=== PATIENT | female | born 1925 | race Caucasian/White ===

== ENCOUNTER 2016-10-25 12:48 | Emergency (ER) | payer MEDICARE ==
--- NOTE | 2016-10-25 13:43 | ED.PDOC ---
History of Present Illness - General Chief Complaint: Neuro Symptoms/Deficits Stated Complaint: generalized weakness and confusion today Time Seen by Provider: 10/25/16 12:51 Source: patient, family Exam Limitations: no limitations - History of Present Illness Initial Comments: Patient presents with AMS. The family says that she normally is "sharp" but today she seems confused. No history of dementia. She has had no recent illnesses. She denies any sx and is wondering why she is here. She is alert to place and name but not year. Timing/Duration: 4-6 hours Severity: mild Improving Factors: nothing Worsening Factors: nothing Associated Symptoms: denies symptoms Allergies/Adverse Reactions: Allergies Levofloxacin [From Levaquin] Adverse Reaction (Verified 03/29/16 14:14) metals Allergy (Uncoded 03/29/16 14:14) Home Medications: Ambulatory Orders Aspirin [Aspirin EC] 325 mg PO BEDTIME 05/24/14 Calcium 600 mg PO BEDTIME 05/24/14 Lovastatin 20 mg PO BEDTIME 05/24/14 [place]-3 Fatty Acids [Fish Oil] 1 cap PO BEDTIME 05/24/14 Omeprazole 20 mg PO DAILY@0700 05/24/14 Oxybutynin Chloride [Oxybutynin Chloride ER] 10 mg PO BEDTIME 05/24/14 Acetamin W/Cod #3 Tab [Tylenol w/CODEINE #3] 1 ea PO Q6H PRN #30 tab 03/13/16 Gabapentin 600 mg PO BEDTIME 03/13/16 Lisinopril 10 mg PO BEDTIME 03/13/16 Lubiprostone [Amitiza] 24 mcg PO DAILY #14 cap 03/13/16 Metoprolol Succinate [Metoprolol Succinate ER] 50 mg PO BID 03/13/16 Zolpidem Tartrate [Ambien] 5 mg PO BEDTIME 03/13/16 Sulfamethoxazole-Trimethoprim [Bactrim Ds 800-160 mg] 1 tab PO Q12HR #10 tab Review of Systems - Review of Systems Constitutional: States: no symptoms reported EENTM: States: no symptoms reported Respiratory: States: no symptoms reported Cardiology: States: no symptoms reported Gastrointestinal/Abdominal: States: no symptoms reported Genitourinary: States: no symptoms reported Musculoskeletal: States: no symptoms reported Skin: States: no symptoms reported Neurological: States: see HPI Endocrine: States: no symptoms reported Hematologic/Lymphatic: States: no symptoms reported Past Medical History (General) - Patient Medical History Hx Seizures: No Hx Stroke: No Hx Dementia: No Hx Asthma: No Hx of COPD: No Hx Cardiac Disorders: Yes Hx Congestive Heart Failure: Yes Hx Pacemaker: Yes Hx Hypertension: Yes Hx Thyroid Disease: No Hx Diabetes: No Hx Gastroesophageal Reflux: No Hx Renal Disease: No Hx Cancer: No Hx of HIV: No Hx Hepatitis C: No Hx MRSA: No Surgical History: pacemaker, Hysterectomy - Vaccination History Hx Tetanus, Diphtheria Vaccination: No Hx Influenza Vaccination: Yes - 2014 Hx Pneumococcal Vaccination: Yes - 2013 - Social History Hx Tobacco Use: Yes Hx Chewing Tobacco Use: No Hx Alcohol Use: No Hx Substance Use: No Hx Substance Use Treatment: No Hx Depression: No Hx Physical Abuse: No Hx Emotional Abuse: No Hx Suspected Abuse: No - Female History Patient : No Family Medical History - Family History Mother Family History: Unknown Living Status: Hx Cardiac Disease: Yes Physical Exam - Physical Exam General Appearance: Alert Eye Exam: bilateral normal Ears, Nose, Throat: normal ENT inspection Neck: non-tender, full range of motion, supple Respiratory: chest non-tender, lungs clear, normal breath sounds Cardiovascular/Chest: regular rate, rhythm Gastrointestinal/Abdominal: normal bowel sounds, non tender, soft Back Exam: no CVA tenderness Extremity: normal inspection, no pedal edema 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 Laboratory Tests 10/25/16 10/25/16 13:00 15:03 WBC 9.1 RBC 5.19 Hgb 15.1 Hct 46.6 MCV 89.7 MCH 29.1 MCHC 32.4 L RDW 14.4 Plt Count 181 MPV 8.9 Absolute Neuts (auto) 6.20 Absolute Lymphs (auto) 2.10 Absolute Monos (auto) 0.50 Absolute Eos (auto) 0.20 Absolute Basos (auto) 0.10 Neutrophils % 67.9 Lymphocytes % 23.6 Monocytes % 5.8 Eosinophils % 2.1 Basophils % 0.6 Sodium 138 Potassium 5.0 Chloride 107 Carbon Dioxide 25 Anion Gap 11.0 L BUN 16 Creatinine 0.88 BUN/Creatinine Ratio 18.2 POC Glucose 107 H Random Glucose 104 Serum Osmolality 277.2 Calcium 10.1 Total Bilirubin 0.8 AST 20 ALT 11 Alkaline Phosphatase 68 Serum Total Protein 7.4 Albumin 3.9 Globulin 3.5 Albumin/Globulin Ratio 1.1 Urine Color Yellow Urine Appearance Sl cloudy Urine pH 7.0 Ur Specific [place] 1.020 Urine Protein Negative Urine Glucose (UA) Negative Urine Ketones Negative Urine Blood Small H Urine Nitrite Positive H Urine Bilirubin Negative Urine Urobilinogen 1.0 Ur Leukocyte Esterase Trace H Urine RBC 0 Urine WBC 10-20 H Ur Epithelial Cells 0 Urine Bacteria 1+ 10/25/16 15:32 RX for Bactrim DS bid x 5 days given. Departure - Departure Clinical Impression: UTI (urinary tract infection) Disposition: Discharge to Home or Self Care Condition: Good Departure Forms: ED Discharge - Pt. Copy, Patient Portal Self Enrollment Diet: resume usual diet Activity: increase activity as tolerated Prescriptions: Sulfamethoxazole-Trimethoprim [Bactrim Ds 800-160 mg] 1 tab PO Q12HR #10 tab Home Medications: Ambulatory Orders Aspirin [Aspirin EC] 325 mg PO BEDTIME 05/24/14 Calcium 600 mg PO BEDTIME 05/24/14 Lovastatin 20 mg PO BEDTIME 05/24/14 [place]-3 Fatty Acids [Fish Oil] 1 cap PO BEDTIME 05/24/14 Omeprazole 20 mg PO DAILY@0700 05/24/14 Oxybutynin Chloride [Oxybutynin Chloride ER] 10 mg PO BEDTIME 05/24/14 Acetamin W/Cod #3 Tab [Tylenol w/CODEINE #3] 1 ea PO Q6H PRN #30 tab 03/13/16 Gabapentin 600 mg PO BEDTIME 03/13/16 Lisinopril 10 mg PO BEDTIME 03/13/16 Lubiprostone [Amitiza] 24 mcg PO DAILY #14 cap 03/13/16 Metoprolol Succinate [Metoprolol Succinate ER] 50 mg PO BID 03/13/16 Zolpidem Tartrate [Ambien] 5 mg PO BEDTIME 03/13/16 Sulfamethoxazole-Trimethoprim [Bactrim Ds 800-160 mg] 1 tab PO Q12HR #10 tab
--- NOTE | 2016-10-25 14:38 | RAD ---
Study: Single Frontal View of the Chest. Indication:AMS Comparison: March 18, 2016. Impression: Dual-lead cardiac pacemaker. Cardiomegaly. Thoracic aorta markedly tortuous and calcified. There is prominence of the right ector which could reflect vasculature, or lymphadenopathy not excluded. Contrast-enhanced CT chest can better evaluate. New mild right basilar atelectasis versus consolidation. Short-term follow-up recommended. Emphysema suspected. No pneumothorax. No acute osseous abnormality. Electronically signed by: Terrell West MD 10/25/2016 2:37 PM CDT
[2016-10-25 19:13] VITALS: BP 178/84; TEMP 97.9; O2SAT 91
== END 2016-10-25 15:55 | disposition home or self-care (01) ==
LOC: ER 12:48
DX: N39.0 Urinary tract infection, site not specified (principal); Z88.8 Allergy status to other drugs, medicaments and biological substances; Z91.048 Other nonmedicinal substance allergy status; Z79.82 Long term (current) use of aspirin; Z79.899 Other long term (current) drug therapy; I11.0 Hypertensive heart disease with heart failure; I50.9 Heart failure, unspecified; Z95.0 Presence of cardiac pacemaker; Z87.891 Personal history of nicotine dependence

== ENCOUNTER 2016-10-30 18:07 | Inpatient (IN) | payer MEDICARE ==
[2016-10-30] MEDS ORDERED: SODIUM CHLORIDE 0.9% 1000ML 1,000 ML IVS ONE (18:31)
--- NOTE | 2016-10-30 18:34 | ED.PDOC ---
History of Present Illness - General Chief Complaint: General Stated Complaint: Weakness and confusion Time Seen by Provider: 10/30/16 18:20 Source: patient, RN notes reviewed, Vital Signs reviewed, family Exam Limitations: no limitations - History of Present Illness Initial Comments: Daughter had her brought in due to generalized weakness and confusion. She was seen here of 10/25/16 with similar symptoms and was diagnosed with a UTI. She finished her Bactrim today. Patient has no complaints and does not know why they brought her here. Timing/Duration: 4-6 hours Severity: moderate Improving Factors: nothing Worsening Factors: nothing Associated Symptoms: cough, fever/chills, malaise, weakness Allergies/Adverse Reactions: Allergies Levofloxacin [From Levaquin] Adverse Reaction (Verified 10/30/16 18:18) metals Allergy (Uncoded 03/29/16 14:14) Home Medications: Ambulatory Orders Aspirin [Aspirin EC] 325 mg PO BEDTIME 05/24/14 Calcium 600 mg PO BEDTIME 05/24/14 Lovastatin 20 mg PO BEDTIME 05/24/14 [place]-3 Fatty Acids [Fish Oil] 1 cap PO BEDTIME 05/24/14 Omeprazole 20 mg PO DAILY@0700 05/24/14 Oxybutynin Chloride [Oxybutynin Chloride ER] 10 mg PO BEDTIME 05/24/14 Gabapentin 600 mg PO BEDTIME 03/13/16 Metoprolol Succinate [Metoprolol Succinate ER] 50 mg PO BID 03/13/16 Zolpidem Tartrate [Ambien] 5 mg PO BEDTIME 03/13/16 Review of Systems - Review of Systems Constitutional: States: chills, fever - 102.1 @ home, malaise, weakness EENTM: States: no symptoms reported Respiratory: States: cough. Denies: short of breath, stridor, wheezing Cardiology: States: no symptoms reported Gastrointestinal/Abdominal: States: no symptoms reported Genitourinary: States: no symptoms reported Musculoskeletal: States: no symptoms reported Skin: States: no symptoms reported Neurological: States: see HPI, weakness Endocrine: States: no symptoms reported Hematologic/Lymphatic: States: no symptoms reported Past Medical History (General) - Patient Medical History Hx Seizures: No Hx Stroke: No Hx Dementia: No Hx Asthma: No Hx of COPD: No Hx Cardiac Disorders: Yes Hx Congestive Heart Failure: Yes Hx Pacemaker: Yes Hx Hypertension: Yes Hx Thyroid Disease: No Hx Diabetes: No Hx Gastroesophageal Reflux: No Hx Renal Disease: No Hx Cancer: No Hx of HIV: No Hx Hepatitis C: No Hx MRSA: No - Vaccination History Hx Tetanus, Diphtheria Vaccination: No Hx Influenza Vaccination: Yes - 2015 Hx Pneumococcal Vaccination: Yes - 2013 - Social History Hx Tobacco Use: Yes - Pt quit smoking Hx Chewing Tobacco Use: No Hx Alcohol Use: No Hx Substance Use: No Hx Substance Use Treatment: No Hx Depression: No Hx Physical Abuse: No Hx Emotional Abuse: No Hx Suspected Abuse: No - Female History Patient : No Family Medical History - Family History Mother Family History: Unknown Living Status: Hx Cardiac Disease: Yes Physical Exam - Physical Exam General Appearance: Alert, Comfortable, No apparent distress, Well Developed, Well Groomed, Well Nourished Eye Exam: bilateral normal Ears, Nose, Throat: hearing grossly normal, other - Dry mucous membranes Neck: non-tender, full range of motion, supple, normal inspection Respiratory: no respiratory distress, no accessory muscle use, rhonchi - Throughout, expiration Cardiovascular/Chest: regular rate, rhythm, no gallop, no JVD, no murmur Peripheral Pulses: dorsalis pedis,right: 2+, dorsalis pedis,left: 2+ Gastrointestinal/Abdominal: normal bowel sounds, non tender, soft, no organomegaly, no pulsatile mass Extremity: normal range of motion, non-tender, normal inspection, no pedal edema 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 Will admit patient for observation and IV antibiotics for inadequately treated UTI, fever, weakness & confusion. Departure - Departure Clinical Impression: Dehydration, Hypoxemia UTI (urinary tract infection) Qualifiers: Urinary tract infection type: acute cystitis Hematuria presence: with hematuria Qualifier Code: (N30.01) Acute cystitis with hematuria Fever Qualifiers: Fever type: unspecified Qualifier Code: (R50.9) Fever, unspecified Time of Disposition: 20:54 Disposition: Admit Patient Condition: Fair Departure Forms: ED Discharge - Pt. Copy, Patient Portal Self Enrollment Home Medications: Ambulatory Orders Aspirin [Aspirin EC] 325 mg PO BEDTIME 05/24/14 Calcium 600 mg PO BEDTIME 05/24/14 Lovastatin 20 mg PO BEDTIME 05/24/14 [place]-3 Fatty Acids [Fish Oil] 1 cap PO BEDTIME 05/24/14 Omeprazole 20 mg PO DAILY@0700 05/24/14 Oxybutynin Chloride [Oxybutynin Chloride ER] 10 mg PO BEDTIME 05/24/14 Gabapentin 600 mg PO BEDTIME 03/13/16 Metoprolol Succinate [Metoprolol Succinate ER] 50 mg PO BID 03/13/16 Zolpidem Tartrate [Ambien] 5 mg PO BEDTIME 03/13/16 Decision To Admit - Decistion To Admit Decision to Admit Reason: Medical Nature
--- NOTE | 2016-10-30 19:10 | RAD ---
EXAM DESCRIPTION: Chest,1 View CLINICAL HISTORY: cough/fever COMPARISON: October 25, 2016 FINDINGS: Cardiac silhouette is within normal limits. Contour of the aorta is unchanged compared with the prior exam. Pacer leads project over the heart. Patient is rotated. There is no focal parenchymal or pleural disease. There is no acute osseous process visualized. IMPRESSION: No evidence of acute cardiopulmonary disease. Electronically signed by: Jorge A Brunson MD 10/30/2016 7:09 PM CDT
--- NOTE | 2016-10-30 20:03 | CT ---
EXAM DESCRIPTION: Head CLINICAL HISTORY: confusion/weakness COMPARISON: March 18, 2016 TECHNIQUE: Contiguous axial images of the brain were obtained without the administration of intravenous contrast. FINDINGS: There is no acute intracranial hemorrhage or mass effect. Areas of low attenuation in the periventricular and subcortical white matter are nonspecific but suggestive of small vessel disease. There is generalized atrophy. Ventricular system is within normal limits. There is adequate river-white matter differentiation. There is no skull fracture. There is abnormal opacification of the sphenoid sinus compatible with chronic sinusitis changes. IMPRESSION: No acute intracranial abnormalities. Electronically signed by: Jorge A Brunson MD 10/30/2016 8:03 PM CDT
--- NOTE | 2016-10-30 21:23 | HP ---
SUPERVISING PHYSICIAN: Abhi Kennedy MD CHIEF COMPLAINT: Weakness with some confusion. HISTORY OF PRESENT ILLNESS: Ms. Vogt is an 89-year-old, female that was brought to the Emergency Department by her daughter with complaints that she was having generalized weakness with confusion. She had been recently seen in the Emergency Room on 10/25/16 with similar symptoms and was diagnosed with a urinary tract infection and was started on Bactrim, which she finished today. The patient notes she is still having some dysuria, increased frequency of urination despite finishing her Bactrim. Her daughter reports that she was fine today, she did her physical therapy and took a nap and when she woke up from her nap this afternoon, she was quite confused for a short period of time and was unable to stand without a significant amount of assistance. Her daughter also notes that the patient does take some sleep aids that include Ambien and was recently increased dosage from 5 mg to 10 mg as well as she takes Benadryl sometimes at night along with recently started on a nighttime cough medicine secondary to a cough she has developed. Laboratory studies in the Emergency Department completed show she had a normal white count with no left shift. Chemistries showed just a low sodium of 131. Electrolytes were otherwise within normal limits. BUN 17, creatinine slightly elevated at 1.49. Review of previous records show that her baseline creatinine is 0.7 to 1.0. Vital signs showed the patient to have a fever of 101.5. Heart rate 70. Blood pressure 117/65. Respirations 20. Low O2 saturation of 89% on room air at initial assessment. Her daughter also notes the patient has not been drinking as much fluid as she has in the past several months and has had a decreased appetite for a short period of time. Given the fact that the patient is having significant weakness with previous recent treatment with antibiotics to include Bactrim and a significant fever in the Emergency Department of 101.5 initially, the patient is now going to be placed in observation for further treatment and evaluation. The patient was placed in observation in stable condition. PAST MEDICAL HISTORY: 1. Hypertension. 2. History of intermittent hypotension related to medication regimen. 3. Hyperlipidemia. 4. Osteoporosis. 5. Bradycardia with previous pacemaker placement. 6. Urinary incontinence with multiple urinary tract infections. 7. Carotid artery stenosis. 8. Congestive heart failure with diastolic dysfunction with no available echocardiogram for review in recent past years. 9. Coronary artery disease. 10. Abdominal aortic aneurysm, last measured 4.3 in 2008. 11. Diverticulosis. 12. Degenerative disc disease. PAST SURGICAL HISTORY: 1. Hysterectomy. 2. Cataract removal. 3. Ectropion correction of the right eye. 4. Pacemaker insertion. 5. Abdominal aortic aneurysm repair. CURRENT MEDICATIONS: Please refer to electronic medical record for updated list of home medications that have been verified. ALLERGIES: LEVOFLOXACIN. FAMILY HISTORY: Significant for cancer, diabetes, chronic obstructive pulmonary disease, coronary artery disease. SOCIAL HISTORY: The patient has a history of approximately 60 years of smoking habit and currently smokes. She denies any alcohol or illicit drug use. REVIEW OF SYSTEMS: CONSTITUTIONAL: She notes she did have a fever at home of 102.1 as well as in the Emergency Room with general malaise and weakness. HEENT: Denies rhinorrhea, nasal congestion, or upper respiratory symptoms other than a mild cough. RESPIRATORY: Denies significant shortness of breath, wheezing, but does have a nonproductive cough. CARDIOVASCULAR: Denies chest pain or palpitations. Denies syncopal episodes. GASTROINTESTINAL: Denies constipation, but notes she has had some episodes of diarrhea within the last week actually prior to starting antibiotic therapy. GENITOURINARY: Previous urinary tract infection treatment within the last five days with Bactrim. Continues to have symptoms that include dysuria and increased frequency. NEUROLOGIC: As noted in history of present illness, some mild confusion today that resolved without any intervention and some weakness, but she is under the direction of physical therapy at home from previous falls. PHYSICAL EXAMINATION: VITAL SIGNS: Temperature on admission 101.5. Pulse 70. Blood pressure 178/84. Respirations 20. Saturation 89% initially on room air, improving with nasal cannula to 92%, 2 liters. Admission weight 77.5 kg. GENERAL: The patient alert and oriented. She appears to be in no acute distress. She does appear to be ill and not feeling well and somewhat dehydrated. HEENT: Tympanic membranes clear bilaterally. Oropharynx is pink. Mucous membranes are dry without any lesions. NECK: No jugular venous distention noted. CHEST: Notable for some rhonchi in the left upper lobe, more noted to the lateral posterior aspect with decreased sounds in both bases. No wheezing or rales noted. CARDIOVASCULAR: Regular rate and rhythm without any appreciable murmurs, gallops, or rubs. ABDOMEN: Obese, but soft, nontender. Positive bowel sounds. EXTREMITIES: There is no cyanosis, clubbing or edema. NEUROLOGIC: The patient is alert and oriented times three. Cranial nerves II- XII are grossly intact. Facial features are symmetrical. Extraocular movements are within normal limits. There is no nystagmus noted. There are no notable lateralizing or focalizing neuromotor deficits. LABORATORY: CBC shows white count 6.4, hemoglobin 13.3, hematocrit 40.0, platelet count 129,000, differential without left shift. Chemistries show low sodium 131, potassium 4.7, BUN 17, creatinine 1.49, glucose 133, serum osmolality 266. Liver function within normal limits. BNP 282. Magnesium pending. TSH pending. Urinalysis showed small amount of blood and trace leukocyte esterase on dipstick. Microscopic showed 3 to 5 red blood cells, 5 to 10 white blood cells, 25 epithelials, 3+ amorphus and 4+ bacteria with trace amount of mucus. MICROBIOLOGY: Urine culture pending. Previous urine culture on previous admission to the Emergency Room on 10/25/16 showed a final culture with pseudomonas aeruginosa which was sensitive to Bactrim. Please refer to that report for full details of sensitivity. RADIOLOGY: CT of the head per radiology interpretation showed no acute intracranial abnormalities. ASSESSMENT: 1. Febrile illness, unknown etiology, possibly secondary to continued urinary tract infection having failed to respond to outpatient treatment plan with repeat urinalysis today showing continued significant amount of bacteria and white cells. The patient finished a five day course of Bactrim, but continues to be symptomatic. 2. Generalized weakness with some confusion, possibly secondary to #1 and recent increase in her Ambien along with medications at night to include Benadryl and at times cough medicine. 3. Concerns for possible left upper lobe pneumonia with the patient having been recently treated with antibiotics with some mild hypoxia on room air at time of admission 4. Hypertension. 5. Hyperlipidemia. 6. Osteoporosis. 7. History of bradycardia with pacemaker placement. 8. History of urinary incontinence with multiple urinary tract infections in the past. 9. History of carotid artery stenosis, possibly contributing to #1 with concerns for possible transient ischemic attack. 10. History of congestive heart failure with diastolic dysfunction, but no available echocardiogram currently for review, with current elevated BNP, possibly elevated secondary to dehydration. 11. History of coronary artery disease. 12. Diverticulosis. 13. Previous abdominal aortic aneurysm repair. 14. Moderate dehydration. PLAN: The patient is placed in observation tonight with close clinical monitoring and further evaluation. She will be started on antibiotics to include Rocephin tonight with concerns for a possible underlying pneumonia developing in the left upper lobe along with what appears to be failure of treatment of an underlying urinary tract infection within the last five days with repeat culture results pending. We will plan to provide her with some IV therapy to include rehydration with normal saline to run at 80 mL per hour tonight. She will be placed on telemetry as well as q.4h. neurological checks. We will plan to do a Doppler study of the carotids in the morning as well as repeat chest x-ray. If she has had recent carotid studies, we will certainly review those and consider need for repeat of the carotid studies. She will at some point need a repeat echocardiogram to further evaluate her congestive heart failure. Estimated length of stay of one to two days. Until then, we will continue to monitor the patient closely and treat appropriately. Once discharged, the patient will need close clinical followup with her primary care provider, Dr. Porras, in the outpatient setting. #[id number] [facility] [place] [facility]
[2016-10-30] MEDS ORDERED: ACETAMINOPHEN 325 MG TAB PO PRN (22:49)
[2016-10-30] MEDS ORDERED: LEVALBUTEROL NEBS 1.25 MG/3 ML VIAL NEB PRN (22:49)
[2016-10-30] MEDS ORDERED: SODIUM CHL 0.9% 50ML MIN-BAG+ 50 ML IVPB ONE (22:57)
[2016-10-30] MEDS ORDERED: cefTRIAXone SODIUM 1 GM VIAL ONE (22:57)
[2016-10-30] MEDS: cefTRIAXone SODIUM 1 GM in SODIUM CHL 0.9% 50ML MIN-BAG+ 50 ML IVPB SCH (22:59)
[2016-10-30] MEDS: SODIUM CHLORIDE 0.9% 1000ML 1,000 ML IVS PRN (23:01)
[2016-10-30] MEDS: SODIUM CHLORIDE 0.9% (FLUSH) 10 ML SYG IV PRN (23:17)
[2016-10-30] MEDS: IV SET AND CAP CHANGE INJ INJ SCH (23:17)
[2016-10-31] MEDS: LEVALBUTEROL NEBS 1.25 MG/3 ML VIAL NEB SCH ×4 (05:03→23:47)
--- NOTE | 2016-10-31 07:18 | RAD ---
EXAM: Single view chest. INDICATION: Chest pain. COMPARISON: Chest x-ray: 10/30/2016. FINDINGS: There is a right basilar airspace opacity. The left lung is clear. The heart is at the upper limit of normal in size with a left chest wall pacemaker in place. There is no pneumothorax. The bones are unchanged. IMPRESSION: Right basilar pneumonia Electronically signed by: Vinod Delgado MD 10/31/2016 7:17 AM CDT
[2016-10-31] MEDS: BIFIDOBACTERIUM INFANTIS 4 MG CAP PO SCH (09:42)
[2016-10-31] MEDS ORDERED: PROMETHAZINE W/CODEINE SYR 5 ML UD PO PRN (10:21)
[2016-10-31] MEDS ORDERED: AZITHROMYCIN IV 500 MG VIAL IVPB ONE (10:53)
[2016-10-31] MEDS ORDERED: SODIUM CHLORIDE 0.9% 250ML 250 ML ONE (10:53)
[2016-10-31] MEDS ORDERED: NICOTINE PATCH 21 MG TD SCH (11:00)
[2016-10-31] MEDS: AZITHROMYCIN IV 500 MG in SODIUM CHLORIDE 0.9% 250ML 250 ML IVPB SCH (11:01)
--- NOTE | 2016-10-31 11:26 | PCM.CORE ---
Physician DVT/VTE - Nurse DVT Assessment & Total Each Risk Factor Represents 3 Points: Age over 75 years, Medical PT with Hx of [place], CHF, Severe infection/sepsis Each Risk Factor Represents 1 Point: Medical PT at Bed Rest, Hx of smoking past year Each Risk Factor is 1 Point: Obesity (BMI >25) DVT Assessment Score: 9 - 5 or more Very High Risk Treatments: Early Ambulation *, Sequential Compression Device Pharmacological: Enoxaparin 40mg SQ Daily
[2016-10-31] MEDS ORDERED: ENOXAPARIN SODIUM 40 MG/0.4 ML SYG SUBCU SCH (11:30)
[2016-10-31] MEDS: SODIUM CHLORIDE 0.9% 1000ML 1,000 ML IVS PRN (14:43)
--- NOTE | 2016-10-31 19:30 | PN ---
DATE: 10/31/16 SUPERVISING PHYSICIAN: Geovanni Kennedy M.D. SUBJECTIVE: The patient is feeling much better this morning. She said she is rested and is not confused as she felt like she was when she was admitted. She did run a fever initially on admission with T max being 101.5 but since then has had a T max of 99.9. OBJECTIVE: VITAL SIGNS: T max 99.9, pulse 69, blood pressure 176/84, respirations 20, O2 sat 93% on nasal cannula at 2 liters. I's and O's show a positive balance of 656 with 853 in, 200 out. Weight 77.8 kg. CHEST: Lungs are clear to auscultation except for mild rhonchi heard to the right lower base. No audible wheezing is appreciated. HEART: Regular rate and rhythm. ABDOMEN: Obese but soft, non-tender. Positive bowel sounds. EXTREMITIES: No clubbing, cyanosis or edema. NEUROLOGIC: She is alert and oriented times three. LABORATORY: White count today is 5.4, hemoglobin 12.6, hematocrit 39.1, platelet count 128,000. Differential shows to be without a left shift. Chemistries show normal electrolytes with normalized sodium now of 135, potassium 4.4, BUN 14, creatinine 1.06, glucose 110. Liver functions show to be within normal limits. MICROBIOLOGY: Urine culture is pending. Sputum culture is pending. RADIOLOGY: Chest x-ray this morning per radiology interpretation shows right basilar airspace opacity. Impression per radiology interpretation is right basilar pneumonia. ASSESSMENT: 1. Right basilar pneumonia likely community acquired with the patient having a history of recently being on antibiotics that included Bactrim. 2. Urinary tract infection having been recently treated with Bactrim for final culture results showing Pseudomonas aeruginosa which was sensitive to Bactrim with the patient continuing to be symptomatic. 3. Febrile illness likely secondary to developing pneumonia and underlying urinary tract infection. 4. Generalized weakness with some mild confusion, possibly secondary to #1 as well as some side effects from her Ambien along with other medications at night to include Benadryl and some cough medicines. 5. Hypertension. 6. Hyperlipidemia. 7. Osteoporosis. 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 9. History of urinary incontinence with multiple urinary tract infections in the past with most recent being this past week with the patient being on Bactrim treated for Pseudomonas aeruginosa. 10. History of carotid artery stenosis, less likely contributing to #1 and remote concerns for transient ischemic attacks. 11. History of congestive heart failure with diastolic dysfunction, but no available echocardiogram currently for review, with current elevated BNP, possibly elevated secondary to dehydration. 12. Mild dehydration showing improvement after IV replacement. 13. Mild hyponatremia, improved after IV therapy with IV fluids. 14. History of coronary artery disease. 15. Diverticulosis without any complications noted. 16. Previous abdominal aortic aneurysm repair. PLAN: The patient will be admitted from Observation status into a full admission given the fact that she had shown right basilar pneumonia and has been running a fever. She was started on antibiotics last night to include Rocephin. Additional antibiotics added today will include Azithromycin. She was also started on aggressive bronchial hygiene last night and bronchodilator treatments. This will be continued along with reevaluation in the morning with laboratory studies and repeat x-rays. Given the fact that the patient has pneumonia and has not had any additional neurological confusional state since admission, will opt to not do a Doppler study on the carotids and followup with this in the outpatient setting at discharge with her primary care provider, Dr. Porras. Until discharge, will continue to monitor the patient closely and treat appropriately. #[id number] [facility]
[2016-10-31] MEDS ORDERED: cefTRIAXone SODIUM 1 GM VIAL ONE (20:02)
[2016-10-31] MEDS ORDERED: SODIUM CHL 0.9% 50ML MIN-BAG+ 50 ML IVPB ONE (20:02)
[2016-10-31] MEDS: cefTRIAXone SODIUM 1 GM in SODIUM CHL 0.9% 50ML MIN-BAG+ 50 ML IVPB SCH (22:35)
[2016-11-01] MEDS: SODIUM CHLORIDE 0.9% 1000ML 1,000 ML IVS PRN (02:37)
[2016-11-01] MEDS ORDERED: NYSTATIN POWDER 15GM BTTL TOP ONE (04:31)
[2016-11-01] MEDS: NYSTATIN POWDER 15GM BTTL TOP SCH ×5 (05:15→21:44)
[2016-11-01] MEDS ORDERED: ENOXAPARIN SODIUM 40 MG/0.4 ML SYG SUBCU ONE (07:30)
[2016-11-01] MEDS ORDERED: SODIUM CHLORIDE 0.9% 250ML 250 ML ONE (07:30)
[2016-11-01] MEDS ORDERED: AZITHROMYCIN IV 500 MG VIAL IVPB ONE (07:30)
[2016-11-01] MEDS: LEVALBUTEROL NEBS 1.25 MG/3 ML VIAL NEB SCH ×3 (08:08→23:35)
[2016-11-01] MEDS ORDERED: SODIUM CHLORIDE 0.9% 10 ML VIAL ONE (08:47)
[2016-11-01] MEDS: BIFIDOBACTERIUM INFANTIS 4 MG CAP PO SCH (09:04)
[2016-11-01] MEDS: ENOXAPARIN SODIUM 40 MG/0.4 ML SYG SUBCU SCH (09:04)
[2016-11-01] MEDS ORDERED: OMEPRAZOLE CAP 20 MG CAP ONE (09:07)
[2016-11-01] MEDS ORDERED: METOPROLOL TARTRATE 25 MG TAB ONE (09:07)
[2016-11-01] MEDS: OMEPRAZOLE CAP 20 MG CAP PO SCH (09:10)
[2016-11-01] MEDS: SODIUM CHLORIDE 0.9% (FLUSH) 10 ML SYG IV SCH ×2 (09:10→21:40)
[2016-11-01] MEDS: METOPROLOL SUCCINATE XL 50 MG TAB PO SCH ×2 (09:11→21:46)
[2016-11-01] MEDS: AZITHROMYCIN IV 500 MG in SODIUM CHLORIDE 0.9% 250ML 250 ML IVPB SCH (10:19)
[2016-11-01] MEDS ORDERED: FLUCONAZOLE 150 MG TAB PO ONE (15:54)
[2016-11-01] MEDS: NYSTATIN SUSPENSION 5 ML UD MT SCH ×2 (17:10→21:41)
--- NOTE | 2016-11-01 19:11 | PN ---
DATE: 11/01/16 SUPERVISING PHYSICIAN: Yonny Porras M.D. SUBJECTIVE: The patient had an episode of confusion last night, more of a episode when she felt like she needed to leave the hospital once all of her family members had left. She was given some Ativan which resulted in the patient calming down. She was hypotensive as well but with her Ativan dosage and her calming down, her blood pressure did improve somewhat. She remains afebrile. OBJECTIVE: VITAL SIGNS: T max 98.9, pulse 85, blood pressure 154/95, respirations 22, O2 sat showing 95% on nasal cannula at 2 liters. I's and O's show a positive balance of 1212 with 2912 in, 1700 out. She has been saline locked. Weight is 78.9 kg. GENERAL: The patient is resting this morning. She is a little confused. She does not remember much of the night but recalls that she is in the hospital and can remember her daughters' names, but is a little drowsy from the Ativan. HEENT: Oropharynx is pink. There is some notable white plaques on the oral mucosa with some mild erythema noted on the left cheek area compared to admission. CHEST: Lungs remain clear to auscultation with no notable rhonchi today, just diminished towards the right lower base. HEART: Regular rate and rhythm. ABDOMEN: Obese but soft, non-tender. Positive bowel sounds. EXTREMITIES: No clubbing, cyanosis or edema. NEUROLOGIC: She is alert and oriented times three. INTEGUMENT: The patient has some areas underneath her right breast that show to be erythematous from previous shingles episode. LABORATORY: CBC shows to be within normal limits with white count 5.8, hemoglobin 13.6, hematocrit 41.8, platelet count 126,000. Differential shows to be within normal limits. Chemistries show normal electrolytes with potassium 3.8, BUN 9, creatinine 0.63, glucose 128. MICROBIOLOGY: Urine culture showed no growth at 24 hours. ASSESSMENT: 1. Right basilar pneumonia likely community acquired in a patient having a history of recently being on antibiotics to include Bactrim showing some improvement. 2. Urinary tract infection recently having been treated with Bactrim for final culture results showing Pseudomonas aeruginosa having been sensitive to Bactrim and the patient continuing to be symptomatic but with urine culture showing no growth at 24 hours. 3. Febrile illness likely secondary to underlying pneumonia and secondary to previous urinary tract infection. 4. Generalized weakness with some mild confusion likely secondary to number 1 as well as owners and disorientation, and some medication interactions to include possible Ambien and Benadryl. 5. Hypertension. 6. Hyperlipidemia. 7. Osteoporosis. 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 9. History of urinary incontinence with multiple urinary tract infections in the past with most recent being in the last week being treated with Bactrim for Pseudomonas aeruginosa. 10. History of carotid artery stenosis likely contributing to number 1. 11. History of congestive heart failure with diastolic dysfunction but no available echocardiogram currently for review with current elevated BNP possibly elevated secondary to dehydration. 12. Mild dehydration showing improvement after IV therapy. 13. Mild hyponatremia, resolved after IV fluids. 14. History of coronary artery disease. 15. Diverticulosis without any complications noted. 16. Previous abdominal aortic aneurysm repair. 17. Intertrigo of the right breast and thrush likely secondary from previous antibiotic therapy. PLAN: The patient will continue in full admission today and treated for underlying pneumonia with antibiotic therapy and started with Rocephin and Azithromycin. She will continue on pulmonary hygiene with bronchodilator treatment. I have encouraged the family to stay with the patient as much as possible to keep her oriented in the afternoons at times when she gets confused. We started her on some Nystatin swish and swallow as well as Nystatin powder for the underlying rashes and closely monitor. Anticipate possible discharge Friday or Friday. Before then, will get an evaluation and recommendations from Physical Therapy to ensure the patient is safe to return home. Until then, the patient will continue to be monitored closely and treated appropriately. Once discharged, the patient will need close clinical followup with Dr. Porras in the outpatient setting. #[id number] [facility]
[2016-11-01] MEDS ORDERED: cefTRIAXone SODIUM 1 GM VIAL ONE (19:47)
[2016-11-01] MEDS ORDERED: SODIUM CHL 0.9% 50ML MIN-BAG+ 50 ML IVPB ONE (19:47)
[2016-11-01] MEDS ORDERED: ASPIRIN TABLET 325 MG TAB ONE (19:47)
[2016-11-01] MEDS ORDERED: FISH OIL 1,200 MG CAP ONE (19:47)
[2016-11-01] MEDS ORDERED: CALCIUM CARBONATE-VITAMIN D 500 MG TAB ONE (19:54)
[2016-11-01] MEDS ORDERED: GABAPENTIN 300 MG CAP ONE (19:55)
[2016-11-01] MEDS ORDERED: SIMVASTATIN 10 MG TAB PO ONE (19:56)
[2016-11-01] MEDS ORDERED: TOLTERODINE TARTRATE ER 4 MG CAP PO ONE (19:56)
[2016-11-01] MEDS ORDERED: NON-FORMULARY MEDICATION 1 EA MIS (Oxybutynin Chloride [Oxybutynin Chloride Er] 10 MG) PO SCH (21:00)
[2016-11-01] MEDS ORDERED: ZOLPIDEM TARTRATE 5 MG TAB PO SCH (21:00)
[2016-11-01] MEDS ORDERED: NON-FORMULARY MEDICATION 1 EA MIS (Lovastatin [Lovastatin] 20 MG) PO SCH (21:00)
[2016-11-01] MEDS: CALCIUM CARBONATE-VITAMIN D 500 MG TAB PO SCH (21:39)
[2016-11-01] MEDS: TOLTERODINE TARTRATE ER 4 MG CAP PO SCH (21:39)
[2016-11-01] MEDS: GABAPENTIN 300 MG CAP PO SCH (21:40)
[2016-11-01] MEDS: SIMVASTATIN 10 MG TAB PO SCH (21:40)
[2016-11-01] MEDS: FISH OIL 1,200 MG CAP PO SCH (21:40)
[2016-11-01] MEDS: ASPIRIN (ENTERIC COATED) 325 MG TAB PO SCH (21:43)
[2016-11-01] MEDS: cefTRIAXone SODIUM 1 GM in SODIUM CHL 0.9% 50ML MIN-BAG+ 50 ML IVPB SCH (22:38)
[2016-11-01] MEDS: SODIUM CHLORIDE 0.9% (FLUSH) 10 ML SYG IV PRN (22:39)
[2016-11-02] MEDS: OMEPRAZOLE CAP 20 MG CAP PO SCH (06:21)
[2016-11-02] MEDS: LEVALBUTEROL NEBS 1.25 MG/3 ML VIAL NEB SCH ×2 (07:20→16:05)
--- NOTE | 2016-11-02 07:36 | RAD ---
EXAM: Single view chest. INDICATION: Chest pain. COMPARISON: Chest x-ray: 10/31/2016. FINDINGS: Cardiac silhouette: Enlarged with a left chest wall pacemaker in place Sandrine: The right hilum is prominent, likely due to enlargement of the pulmonary artery. Lobar consolidation: None. Pleural effusion: None. Pneumothorax: None. Other: None. Bones: Demineralized Other: None. IMPRESSION: Significant improvement of the right basilar airspace opacity. Electronically signed by: Vinod Delgado MD 11/02/2016 7:34 AM CDT
[2016-11-02] MEDS ORDERED: SODIUM CHLORIDE 0.9% 250ML 250 ML ONE (07:39)
[2016-11-02] MEDS ORDERED: AZITHROMYCIN IV 500 MG VIAL IVPB ONE (07:40)
[2016-11-02] MEDS ORDERED: METOPROLOL SUCCINATE XL 50 MG TAB ONE (07:40)
[2016-11-02] MEDS: NYSTATIN SUSPENSION 5 ML UD MT SCH ×4 (09:25→21:08)
[2016-11-02] MEDS: NYSTATIN POWDER 15GM BTTL TOP SCH ×4 (09:25→21:08)
[2016-11-02] MEDS: BIFIDOBACTERIUM INFANTIS 4 MG CAP PO SCH (09:25)
[2016-11-02] MEDS: ENOXAPARIN SODIUM 40 MG/0.4 ML SYG SUBCU SCH (09:25)
[2016-11-02] MEDS: SODIUM CHLORIDE 0.9% (FLUSH) 10 ML SYG IV SCH ×2 (09:26→21:07)
[2016-11-02] MEDS: METOPROLOL SUCCINATE XL 50 MG TAB PO SCH ×2 (09:26→21:06)
[2016-11-02] MEDS: AZITHROMYCIN IV 500 MG in SODIUM CHLORIDE 0.9% 250ML 250 ML IVPB SCH (10:14)
--- NOTE | 2016-11-02 16:05 | PN ---
DATE: 11/02/16 SUPERVISING PHYSICIAN: Yonny Porras M.D. SUBJECTIVE: The patient is much better this morning in regards to mental status. She was able to sleep through the night and did not have any more confusional states. Family says she is back to her more baseline mental status. She remains afebrile. She has not had any recent nausea or vomiting. OBJECTIVE: VITAL SIGNS: T max 98.5, pulse 69, blood pressure 114/77, respirations 18, O2 sat showing 94% on room air. I's and O's show a negative balance of 250 with 750 in, 1,000 out. Weight is 76.7 kg which is down from admission of 77.8. GENERAL: The patient is resting in bed. Appears to be in good spirits. She is much better oriented this morning with family present. CHEST: Lung sounds are improving, continues to be slightly diminished towards the bases but no obvious rhonchi, wheezing or rales are noted. HEART: Regular rate and rhythm. ABDOMEN: Obese but soft, non-tender. Positive bowel sounds. EXTREMITIES: No clubbing, cyanosis or edema. NEUROLOGIC: She is alert and oriented times three. LABORATORY: CBC remains within normal limits with white count of 7.4. Chemistries show normal electrolytes with potassium 4.1, BUN 10, creatinine 0.6 , glucose 106. MICROBIOLOGY: Urine culture final report from admission to the Emergency Department showed insignificant colony count of mixed panchito. RADIOLOGY: Chest x-ray this morning per radiology interpretation of single view chest shows significant improvement of the right basilar airspace opacity. ASSESSMENT: 1. Right basilar pneumonia likely community acquired in a patient with a history of recently being treated on antibiotics that included Bactrim continues to show improvement as well as good improvement radiographically. 2. Urinary tract infection having been recently treated with Bactrim with final culture results showing insignificant colony counts of mixed panchito. 3. Febrile illness likely secondary to underlying pneumonia and a previous urinary tract infection having resolved after starting treatment. 4. Generalized weakness with some mild confusion felt to be secondary to number 1 as well as Sundowners disorientation and medication regimen interaction, improved, now back to baseline status. 5. Hypertension. 6. Hyperlipidemia. 7. Osteoporosis. 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 9. History of urinary incontinence with multiple urinary tract infections in the past, most recent being in the last week treated with Bactrim for Pseudomonas aeruginosa. 10. History of carotid artery stenosis possibly contributing to number 1. 11. History of congestive heart failure with diastolic dysfunction but no available echocardiogram for review with elevation of BNP on admission. 12. Mild dehydration showing improvement after IV therapy. 13. Mild hyponatremia, resolved after IV fluids. 14. History of coronary artery disease. 15. Diverticulosis without complications. 16. Previous abdominal aortic aneurysm repair. 17. Intertrigo of the right breast and thrush likely secondary from previous antibiotic therapy being treated with Nystatin. PLAN: Will continue with current plan of care as the patient is showing good clinical improvement. She will remain on antibiotics to include Rocephin and Azithromycin. Will continue with Nystatin to treat the Intertrigo under the breast as well as the thrush. Will hope to discharge in the morning. Will plan to clinically reevaluate with a repeat chest x-ray. No additional laboratory studies as her laboratory studies have shown to be stable at this point. Until discharge, will continue to monitor the patient closely and treat appropriately. #[id number] [facility]
[2016-11-02] MEDS ORDERED: SODIUM CHL 0.9% 50ML MIN-BAG+ 50 ML IVPB ONE (18:46)
[2016-11-02] MEDS ORDERED: cefTRIAXone SODIUM 1 GM VIAL ONE (18:47)
[2016-11-02] MEDS: GABAPENTIN 300 MG CAP PO SCH (21:06)
[2016-11-02] MEDS: TOLTERODINE TARTRATE ER 4 MG CAP PO SCH (21:06)
[2016-11-02] MEDS: SIMVASTATIN 10 MG TAB PO SCH (21:06)
[2016-11-02] MEDS: CALCIUM CARBONATE-VITAMIN D 500 MG TAB PO SCH (21:06)
[2016-11-02] MEDS: FISH OIL 1,200 MG CAP PO SCH (21:06)
[2016-11-02] MEDS: ASPIRIN (ENTERIC COATED) 325 MG TAB PO SCH (21:06)
[2016-11-02] MEDS: IV SET AND CAP CHANGE INJ INJ SCH (22:46)
[2016-11-02] MEDS: SODIUM CHLORIDE 0.9% (FLUSH) 10 ML SYG IV PRN (22:46)
[2016-11-02] MEDS: cefTRIAXone SODIUM 1 GM in SODIUM CHL 0.9% 50ML MIN-BAG+ 50 ML IVPB SCH (22:47)
[2016-11-03] MEDS: LEVALBUTEROL NEBS 1.25 MG/3 ML VIAL NEB SCH ×2 (00:50→07:20)
[2016-11-03] MEDS: OMEPRAZOLE CAP 20 MG CAP PO SCH (06:36)
[2016-11-03 06:40] VITALS: TEMP 97.4
[2016-11-03] MEDS: ENOXAPARIN SODIUM 40 MG/0.4 ML SYG SUBCU SCH (08:34)
[2016-11-03] MEDS: BIFIDOBACTERIUM INFANTIS 4 MG CAP PO SCH (08:35)
[2016-11-03] MEDS: NYSTATIN SUSPENSION 5 ML UD MT SCH ×2 (08:35→12:39)
[2016-11-03] MEDS: NYSTATIN POWDER 15GM BTTL TOP SCH ×2 (08:35→12:39)
[2016-11-03] MEDS: SODIUM CHLORIDE 0.9% (FLUSH) 10 ML SYG IV SCH (08:35)
[2016-11-03] MEDS: METOPROLOL SUCCINATE XL 50 MG TAB PO SCH (08:35)
[2016-11-03] MEDS ORDERED: AZITHROMYCIN IV 500 MG VIAL IVPB ONE (09:33)
[2016-11-03] MEDS ORDERED: SODIUM CHLORIDE 0.9% 250ML 250 ML ONE (09:33)
[2016-11-03] MEDS: AZITHROMYCIN IV 500 MG in SODIUM CHLORIDE 0.9% 250ML 250 ML IVPB SCH (10:11)
[2016-11-03 10:14] VITALS: BP 156/81; O2SAT 96
--- NOTE | 2016-11-04 10:06 | DS ---
SUPERVISING PHYSICIAN: Yonny Porras MD DISCHARGE DIAGNOSIS: 1. Right basilar pneumonia, likely community acquired in a patient with a history of recently being treated on antibiotics that included Bactrim continues to show improvement clinically and radiographically prior to discharge after initiation of antibiotic therapy. 2. Urinary tract infection having been recently treated with Bactrim with final culture results showing insignificant colony counts of mixed panchito. 3. Febrile illness likely secondary to underlying pneumonia and a previous urinary tract infection, having resolved after starting treatment. 4. Generalized weakness with some mild confusion felt to be secondary to urinary tract infection as well as some Sundowner's disorientation with medication regimen interaction, showing improvement and back to baseline mental status prior to discharge. 5. Hypertension. 6. Hyperlipidemia. 7. Osteoporosis. 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 9. History of urinary incontinence with multiple urinary tract infections in the past, most recent being in the last week treated with Bactrim for Pseudomonas aeruginosa. 10. History of carotid artery stenosis possibly contributing to #1, but less likely as there was no evidence of neurologic deficits. 11. History of congestive heart failure with diastolic dysfunction, but no available echocardiogram for review with elevation of BNP on admission. 12. Mild dehydration, showing improvement after IV therapy. 13. Mild hyponatremia, resolved after IV fluids. 14. History of coronary artery disease. 15. Diverticulosis without complications noted. 16. Previous abdominal aortic aneurysm repair. 17. Intertrigo of the right breast and thrush likely secondary from previous antibiotic therapy being treated with Nystatin as well as swish and swallow, showing good improvement. HISTORY OF PRESENT ILLNESS: Ms. Vogt is an 89-year-old, female that was brought to the Emergency Department by her daughter with complaints that she was having generalized weakness with confusion. She had been recently seen in the Emergency Room on 10/25/16 with similar symptoms and was diagnosed with a urinary tract infection and was started on Bactrim, which she finished the day of admission. The patient notes she is still having some dysuria, increased frequency of urination despite finishing her Bactrim. Her daughter reports that she was fine the date of admission, she did her physical therapy and took a nap and when she woke up from her nap that afternoon, she was quite confused for a short period of time and was unable to stand without a significant amount of assistance. Her daughter also notes that the patient does take some sleep aids that include Benadryl sometimes at night along with recently having been started on nighttime cough medicine secondary to a cough she had developed. Laboratory studies in the Emergency Department completed show she had a normal white count with no left shift. Chemistries showed just a low sodium of 131. Electrolytes were otherwise within normal limits. BUN 17 , creatinine slightly elevated at 1.49. Review of previous records show that her baseline creatinine is 0.7 to 1.0. Vital signs showed the patient to have a fever of 101.5 initially on admission. Heart rate 70. Blood pressure 117/ 65. Respirations 20. Low O2 saturation of 89% on room air at initial assessment. Her daughter also notes the patient has not been drinking as much fluid as she has in the past several months and has had a decreased appetite for a short period of time. Given the fact that the patient is having significant weakness with previous recent treatment with antibiotics to include Bactrim and a significant fever in the Emergency Department of 101.5 initially, the patient was in observation for further treatment and evaluation. Ultimately , she was admitted as she was found to have underlying pneumonia. She was initially admitted in stable condition. LABORATORY: CBC was within normal limits, but closely followed. At discharge, her white count was 7.4 with no left shift. Hemoglobin and hematocrit were stable at 13.4 and 41.7. Chemistries on admission showed a low sodium of 131, however, after initiation of therapy and at time of discharge, electrolytes were all within normal limits. BUN 10, creatinine 0.06, glucose 106, serum osmolality 269, calcium 9.4. MICROBIOLOGY: Urine culture, clean cath, per report shows insignificant colon count of mixed panchito. RADIOLOGY: Chest x-ray on admission to the Emergency Department per radiology interpretation showed no evidence of acute cardiopulmonary disease. This was followed up with a chest x-ray on 10/31/16 after admission and per radiology interpretation there was note of right basilar pneumonia with right basilar airspace opacity. Left lung was clear. HOSPITAL COURSE: Ms. Vogt was admitted as noted in history of present illness initially for exacerbation of chronic obstructive pulmonary disease and after initiation of therapy and rehydration, it was found that on radiographic studies she had a pneumonia of the right lower lobe. She was initiated on antibiotics that included azithromycin and Rocephin. The patient did well, however, alf through the admission on one night she did have an episode of confusion, but was easily oriented and was given Ativan with good results. On the morning of discharge, it was felt the patient had resolved her pneumonia as radiographic indicated on followup x-ray. Therefore, the patient was felt clinically well enough to be discharged to continue with antibiotic therapy in the outpatient setting. PLAN: Ms. Vogt was discharged on 11/03/16 to have close clinical followup with Dr. Porras on 7 days. She was to call his office on Friday to schedule a followup appointment. She also has home health services through [facility], which will continue after discharge. She was to resume her home medications as previous to admission and take her new medications as directed to completion. She was to utilize Nystatin swish and swallow for 7 days and once symptoms resolve, to continue for one more day and discontinue. She was to use a cane when walking and to go slowly when changing positions to prevent any falls. She was instructed to return to the hospital should she show any worsening, recurrence or no change in her condition. At time of discharge, new prescriptions included: 1. Xopenex Handihaler with a spacer 45 mcg q.4h. as needed, 1 inhaler. 2. Algin 4 mg tablets daily, #30. 3. Azithromycin 500 mg tablets, 1 tablet for completion of therapy. 4. Cefdinir 300 mg tablets twice daily, #12. 5. Nystatin 5 mL swish and swallow q.i.d., 1 8 ounce bottle, no refills. All other medications prior to admission were continued. She was discharged in stable condition. #[id number] [facility]
== END 2016-11-03 13:35 | disposition home health service (06) | DRG 194 ==
LOC: ER 18:07 → MS 21:22 → OBSVTOIN 10-31 15:05
PROVIDERS: ADMIT Nurse Practitioner Family; ATTEND Nurse Practitioner Family
DX: J18.9 Pneumonia, unspecified organism (principal); N39.0 Urinary tract infection, site not specified; F05 Delirium due to known physiological condition; E87.1 Hypo-osmolality and hyponatremia; B37.0 Candidal stomatitis; I50.32 Chronic diastolic (congestive) heart failure; R09.02 Hypoxemia; E86.0 Dehydration; L30.4 Erythema intertrigo; E78.5 Hyperlipidemia, unspecified; M81.0 Age-related osteoporosis without current pathological fracture; I65.29 Occlusion and stenosis of unspecified carotid artery; I11.0 Hypertensive heart disease with heart failure; M62.81 Muscle weakness (generalized); I25.10 Atherosclerotic heart disease of native coronary artery without angina pectoris; T36.95XA Adverse effect of unspecified systemic antibiotic, initial encounter; Y92.230 Patient room in hospital as the place of occurrence of the external cause; R32 Unspecified urinary incontinence; F17.210 Nicotine dependence, cigarettes, uncomplicated; E66.9 Obesity, unspecified; Z79.82 Long term (current) use of aspirin; Z88.1 Allergy status to other antibiotic agents; Z95.0 Presence of cardiac pacemaker; Z79.899 Other long term (current) drug therapy

== ENCOUNTER → 2017-01-27 | Outpatient (CLI) | payer MEDICARE | END | disposition home or self-care (01) | LOC: YCHH 09:57 | PROVIDERS: ATTEND Family Medicine | DX: J44.9 Chronic obstructive pulmonary disease, unspecified (principal); I50.9 Heart failure, unspecified; I10 Essential (primary) hypertension; D64.9 Anemia, unspecified; E78.5 Hyperlipidemia, unspecified; E03.9 Hypothyroidism, unspecified; I25.10 Atherosclerotic heart disease of native coronary artery without angina pectoris ==

== ENCOUNTER → 2017-02-12 | Outpatient (CLI) | payer MEDICARE | END | disposition home or self-care (01) | LOC: YCHH 11:20 | PROVIDERS: ATTEND Family Medicine | DX: J44.9 Chronic obstructive pulmonary disease, unspecified (principal); I50.9 Heart failure, unspecified; D64.9 Anemia, unspecified; E78.5 Hyperlipidemia, unspecified; E03.9 Hypothyroidism, unspecified; I25.10 Atherosclerotic heart disease of native coronary artery without angina pectoris ==

== ENCOUNTER → 2017-02-17 | Outpatient (CLI) | payer MEDICARE | LOC: YCHH 13:05 | PROVIDERS: ATTEND Family Medicine | DX: R30.0 Dysuria (principal) ==

== ENCOUNTER → 2017-04-15 | Outpatient (CLI) | payer MEDICARE | END | disposition home or self-care (01) | LOC: YCHH 16:47 | PROVIDERS: ATTEND Family Medicine | DX: N39.0 Urinary tract infection, site not specified (principal) ==

== ENCOUNTER 2017-04-17 20:51 | Inpatient (IN) | payer MEDICARE ==
[2017-04-17] MEDS ORDERED: SODIUM CHLORIDE 0.9% 1000ML 1,000 ML IVS PRN (21:01)
--- NOTE | 2017-04-17 21:03 | ED.PDOC ---
History of Present Illness - General Chief Complaint: General Stated Complaint: AMS-lethargic Time Seen by Provider: 04/17/17 20:59 Source: family Exam Limitations: no limitations - History of Present Illness Initial Comments: Gregoria Vogt 89 y/o female brought by ems tonight after she was found to somnolent/lethargic by the daughter she had seen her primary md this afternoon and was given an antibiotic injection empirically for possible pneumonia and uti and prescribed oral antibiotics. Had also vomited 3 x today.Patient is awake ,knows where she is. Timing/Duration: 4-6 hours Severity: moderate Improving Factors: nothing Worsening Factors: nothing Associated Symptoms: cough, nausea/vomiting, shortness of breath Allergies/Adverse Reactions: Allergies Levofloxacin [From Levaquin] Adverse Reaction (Verified 04/17/17 21:16) metals Allergy (Uncoded 03/29/16 14:14) Home Medications: Ambulatory Orders Aspirin [Aspirin EC] 325 mg PO BEDTIME 05/24/14 Calcium 600 mg PO BEDTIME 05/24/14 Lovastatin 20 mg PO BEDTIME 05/24/14 [place]-3 Fatty Acids [Fish Oil] 1 cap PO BEDTIME 05/24/14 Omeprazole 20 mg PO DAILY@0700 05/24/14 Oxybutynin Chloride [Oxybutynin Chloride ER] 10 mg PO BEDTIME 05/24/14 Gabapentin 600 mg PO BEDTIME 03/13/16 Metoprolol Succinate [Metoprolol Succinate ER] 50 mg PO BID 03/13/16 Lisinopril 5 mg PO BEDTIME 04/17/17 Review of Systems - Review of Systems Constitutional: States: fever EENTM: States: no symptoms reported Respiratory: States: see HPI Cardiology: States: no symptoms reported Gastrointestinal/Abdominal: States: no symptoms reported Genitourinary: States: see HPI Musculoskeletal: States: no symptoms reported Skin: States: no symptoms reported Neurological: States: no symptoms reported Endocrine: States: no symptoms reported Hematologic/Lymphatic: States: no symptoms reported Past Medical History (General) - Patient Medical History Hx Seizures: No Hx Stroke: No Hx Dementia: No Hx Asthma: No Hx of COPD: No Hx Cardiac Disorders: Yes Hx Congestive Heart Failure: Yes Hx Pacemaker: Yes - Bradycardia Hx Hypertension: Yes Hx Thyroid Disease: No Hx Diabetes: No Hx Gastroesophageal Reflux: No Hx Renal Disease: No Hx Cancer: No Hx of HIV: No Hx Hepatitis C: No Hx MRSA: No Surgical History: pacemaker, other - hysterectomy - Vaccination History Hx Tetanus, Diphtheria Vaccination: No Hx Influenza Vaccination: Yes - 2015 Hx Pneumococcal Vaccination: Yes - 2013 - Social History Hx Tobacco Use: Yes - Pt quit smoking Hx Chewing Tobacco Use: No Hx Alcohol Use: No Hx Substance Use: No Hx Substance Use Treatment: No Hx Depression: No Hx Physical Abuse: No Hx Emotional Abuse: No Hx Suspected Abuse: No - Activities of Daily Living Patient Lives Alone: No - daughter Grooming Ability: Independent Eating (Feeding) Ability: Independent Toileting Ability: Independent Additional ED Patient Information: ambulates with walker - Female History Patient : No Family Medical History - Family History Mother Family History: Unknown Living Status: Hx Family Hypertension: Yes - parents Hx Cardiac Disease: Yes Hx Family Diabetes: Yes - parents Hx Family Cancer: Yes - mom-cancer /breast Physical Exam - Physical Exam General Appearance: Comfortable, No apparent distress, Other - somnolent Eye Exam: bilateral normal Ears, Nose, Throat: hearing grossly normal, normal ENT inspection, normal pharynx Neck: non-tender, supple Respiratory: chest non-tender, no respiratory distress, decreased breath sounds Cardiovascular/Chest: regular rate, rhythm, no gallop, no murmur Peripheral Pulses: radial,right: 1+, radial,left: 1+ Gastrointestinal/Abdominal: non tender, soft, no pulsatile mass Back Exam: no CVA tenderness, no vertebral tenderness Extremity: non-tender, no calf tenderness, pedal edema - + 1 Neurologic: no motor/sensory deficits, alert, oriented x 3 Skin Exam: normal color, warm/dry Lymphatic: no adenopathy Progress - Progress Progress: 04/17/17 22:04 Vital Signs - 8 hr 04/17/17 21:09 Temperature 101.8 F H Pulse Rate [ 87 left] Respiratory 16 Rate Blood Pressure 152/115 [left] O2 Sat by Pulse 90 L Oximetry - Results/Orders Results/Orders: Laboratory Tests 04/17/17 04/17/17 04/17/17 21:08 21:08 21:08 WBC 16.0 H RBC 4.82 Hgb 13.8 Hct 43.1 MCV 89.4 MCH 28.7 MCHC 32.1 L RDW 14.1 Plt Count 149 MPV 8.8 Absolute Neuts (auto) 15.20 H Absolute Lymphs (auto) 0.30 L Absolute Monos (auto) 0.40 Absolute Eos (auto) 0.10 Absolute Basos (auto) 0.00 Neutrophils % Not Reportable Neutrophils % (Manual) 85.0 Lymphocytes % Not Reportable Lymphocytes % (Manual) 1.0 Monocytes % Not Reportable Monocytes % (Manual) 1.0 Eosinophils % Not Reportable Basophils % Not Reportable Band Neutrophils 13.0 Platelet Estimate Normal RBC Morphology Normal rbc morph Sodium 135 Potassium 4.2 Chloride 104 Carbon Dioxide 23 Anion Gap 12.2 BUN 14 Creatinine 0.97 BUN/Creatinine Ratio 14.4 Random Glucose 126 H Serum Osmolality 272.1 L Lactic Acid 1.6 Calcium 9.4 Total Bilirubin 0.7 AST 25 ALT 14 Alkaline Phosphatase 71 Serum Total Protein 7.1 Albumin 3.9 Globulin 3.2 Albumin/Globulin Ratio 1.2 Urine Color Urine Appearance Urine pH Ur Specific [place] Urine Protein Urine Glucose (UA) Urine Ketones Urine Blood Urine Nitrite Urine Bilirubin Urine Urobilinogen Ur Leukocyte Esterase Urine RBC Urine WBC Ur Epithelial Cells Urine Bacteria 04/17/17 21:43 WBC RBC Hgb Hct MCV MCH MCHC RDW Plt Count MPV Absolute Neuts (auto) Absolute Lymphs (auto) Absolute Monos (auto) Absolute Eos (auto) Absolute Basos (auto) Neutrophils % Neutrophils % (Manual) Lymphocytes % Lymphocytes % (Manual) Monocytes % Monocytes % (Manual) Eosinophils % Basophils % Band Neutrophils Platelet Estimate RBC Morphology Sodium Potassium Chloride Carbon Dioxide Anion Gap BUN Creatinine BUN/Creatinine Ratio Random Glucose Serum Osmolality Lactic Acid Calcium Total Bilirubin AST ALT Alkaline Phosphatase Serum Total Protein Albumin Globulin Albumin/Globulin Ratio Urine Color Yellow Urine Appearance Clear Urine pH 6.0 Ur Specific [place] 1.020 Urine Protein Negative Urine Glucose (UA) Negative Urine Ketones 15 H Urine Blood Trace-intact H Urine Nitrite Negative Urine Bilirubin Negative Urine Urobilinogen 1.0 Ur Leukocyte Esterase Negative Urine RBC 1-3 Urine WBC 0-1 Ur Epithelial Cells 1-3 Urine Bacteria Rare - EKG/XRAY/CT XRAY: chest - developing infiltrate right lung base Departure - Departure Clinical Impression: Altered awareness, transient Pneumonia Qualifiers: Pneumonia type: due to unspecified organism Laterality: right Lung location: lower lobe of lung Qualified Code(s): J18.1 - Lobar pneumonia, unspecified organism Time of Disposition: 23:04 Disposition: Admit Patient Condition: Fair Referrals: Yonny Porras MD [Primary Care Provider] - 1-2 Weeks Home Medications: Ambulatory Orders Aspirin [Aspirin EC] 325 mg PO BEDTIME 05/24/14 Calcium 600 mg PO BEDTIME 05/24/14 Lovastatin 20 mg PO BEDTIME 05/24/14 [place]-3 Fatty Acids [Fish Oil] 1 cap PO BEDTIME 05/24/14 Omeprazole 20 mg PO DAILY@0700 05/24/14 Oxybutynin Chloride [Oxybutynin Chloride ER] 10 mg PO BEDTIME 05/24/14 Gabapentin 600 mg PO BEDTIME 03/13/16 Metoprolol Succinate [Metoprolol Succinate ER] 50 mg PO BID 03/13/16 Lisinopril 5 mg PO BEDTIME 04/17/17 Decision To Admit - Decistion To Admit Decision to Admit Reason: Admit from ER Decision to Admit Date: 04/17/17 Decision to Admit Time: 23:03 - D/W Corina Guy -MICHAEL/Hospitalist
[2017-04-17] MEDS ORDERED: IPRATROPIUM/ALBUTEROL 3 ML VIAL NEB ONE (21:08)
--- NOTE | 2017-04-17 21:33 | RAD ---
EXAM DESCRIPTION: Chest,1 View CLINICAL HISTORY: 89 years Female cough COMPARISON: 11/02/2016 FINDINGS: Cardiac size is stable. The right hilum is prominent but appears unchanged. Aorta is elongated and ectatic, also similar to the previous study. Pacemaker in place. There is increased density in the lateral aspect of the right lung base may reflect area of developing infiltrate. Left lung appears clear. IMPRESSION: Increasing density in the lateral right lung base which may reflect area of developing infiltrate Elongated and ectatic aorta Stable cardiomegaly Electronically signed by: Amanda Stern 04/17/2017 9:31 PM CDT
[2017-04-17] MEDS ORDERED: cefTRIAXone SODIUM 1 GM in SODIUM CHL 0.9% 50ML MIN-BAG+ 50 ML IVPB ONE (22:44)
[2017-04-17] MEDS ORDERED: SODIUM CHL 0.9% 50ML MIN-BAG+ 50 ML IVPB ONE (22:46)
[2017-04-17] MEDS ORDERED: cefTRIAXone SODIUM 1 GM VIAL ONE (22:46)
--- NOTE | 2017-04-17 23:29 | HP ---
HISTORY OF PRESENT ILLNESS: This 89-year-old, white female was admitted to the hospital from the Emergency Room where she was brought by her family because of worsening shortness of breath, cough, and high fever. She had an elevated temperature of 102 at home. She got worse with her respiratory distress with shortness of breath, cough and fever yesterday afternoon and was seen in the clinic. They gave her a shot and gave her a prescription to be filled at the pharmacy. She went home subsequently and fell asleep, but when she was awakened at approximately 8 PM last evening, she was markedly confused, disoriented and significantly changed in her level of consciousness. She has had similar infections, each time to include usually a urinary tract infection and pneumonia beginning in June of 2016. Repeat in October of 2016 and again this morning. She was admitted to the hospital a little after 1 AM in the morning from the Emergency Room for specifically treatment after initial cultures and antibiotic course dosings had been received by the patient. Significant conjunctivitis also noted. Elevated white count evident. PAST MEDICAL HISTORY: 1. Recurring urinary tract infections and pneumonias. 2. Hypertension. 3. Chronic obstructive pulmonary disease in a chronic smoker. 4. History of bradycardia with history of pacemaker placement. 5. History of urinary incontinence with recurring urinary tract infections. 6. History of coronary artery stenosis. 7. History of congestive heart failure with diastolic dysfunction component, but no recent echocardiogram. 8. History of coronary artery disease. 9. History of abdominal aortic aneurysm last measured at 4.3 cm in 2008. 10. History of diverticulosis. 11. History of back pain with degenerative disc disease. PAST SURGICAL HISTORY: 1. Hysterectomy. 2. Pacemaker placement. MEDICATIONS: Please refer to nursing list on her current verified home medications. ALLERGIES: LEVOFLOXACIN. FAMILY HISTORY: Positive for cancer, diabetes mellitus, and hypertension. 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 She still smokes and has done so for over 60 years and does not wish to stop at this time according to the patient. REVIEW OF SYSTEMS: GENERAL: Fairly significant fever of 102 last evening. No significant weight change. HEENT: Bilateral conjunctivitis with some secretions evident requiring ongoing treatment. LUNGS: Diminished breath sounds with frequent cough with the patient tending to swallow her sputum versus spitting it out. CARDIOVASCULAR: No significant palpitations or chest pains. GASTROINTESTINAL: Somewhat diminished appetite recently. Some nausea also present. No diarrhea. GENITOURINARY: History of recurring urinary tract infections with painfulness on passing of urine. NEUROLOGIC: No focal neurologic deficits. PHYSICAL EXAMINATION: VITAL SIGNS: Temperature 101.6 and up to 101.8 earlier with pulse 85. Blood pressure 152/115, decreasing to 135/67. Pulse oximetry on 3 liters is 94%. Weight 79 kg. GENERAL: The patient is noticeably somewhat confused, but is able to answer some questions. Family members and caregivers are present to assist with the history. HEENT: Hearing and vision appear to be fair for her age. NECK: Supple. LUNGS: Diminished breath sounds with slightly diminished breath sounds on the right base compared to the left. CARDIOVASCULAR: Heart tones are somewhat distant, yet appear to be fairly regular. ABDOMEN: Generally soft, though somewhat tender in the epigastrium. No significant organomegaly, masses or tenderness. EXTREMITIES: Maybe a trace of edema in the lower extremities to the mid shins. Fairly good range of motion. NEUROLOGIC: No focal neurological deficits. LABORATORY: White count elevated at 16,000, down to 14,200 with 93% neutrophils , hemoglobin dropped from 13.8 to 12.3. Platelet count normal. Chemistries show sodium low at 134, potassium 3.7, CO2 low at 20. Lactic acid 1.6, creatinine up to 1.3, BUN 16, osmolality 270, magnesium 8.7. Liver enzymes appear to be within normal limits. Urinalysis shows trace blood and positive ketones. Blood cultures and nasal surveillance pending, as is sputum culture. Chest x-ray does show evidence of a right lower lobe infiltrative process suggesting a pneumonia. ASSESSMENT: 1. Acute altered level of consciousness with marked confusion, possibly secondary to underlying infectious disease. 2. Acute right lower lobe pneumonia, probably community acquired, but must also observe for response to initial antibiotic treatment course because of the possibility of aspiration pneumonia with a bacteria from the mouth maybe contributing. 3. Bilateral conjunctivitis, being treated with gentamicin ointment. 4. History of hypertension. 5. History of recurring urinary tract infections. 6. Significant fever of 102. 7. Chronic obstructive pulmonary disease in a chronic smoker. 8. Leukocytosis, significant, showing slight improvement. 9. Possibility of underlying dementia aggravated by the acute infectious state. PLAN: Continue close observation and management. Started on Rocephin and azithromycin and IV supplementation. Course of probiotics to assist. Encourage adequate nutrition. Have physical therapy evaluate for safety in ambulation. Check stools for occult blood. Await sputum results. Continue with DVT prophylaxis and close followup. Followup with Dr. Porras after discharge. #[id number] MTDD
[2017-04-18] MEDS ORDERED: LEVALBUTEROL NEBS 1.25 MG/3 ML VIAL INH PRN (00:59)
[2017-04-18] MEDS ORDERED: ONDANSETRON INJ 4 MG/2 ML VIAL IV PRN (00:59)
[2017-04-18] MEDS ORDERED: cefTRIAXone SODIUM 1 GM in SODIUM CHL 0.9% 50ML MIN-BAG+ 50 ML IVPB SCH (01:00)
[2017-04-18] MEDS ORDERED: SODIUM CHLORIDE 0.9% 250ML 250 ML ONE ×2 (01:02→19:29)
[2017-04-18] MEDS ORDERED: AZITHROMYCIN IV 500 MG VIAL IVPB ONE ×2 (01:02→19:31)
[2017-04-18] MEDS: AZITHROMYCIN IV 500 MG in SODIUM CHLORIDE 0.9% 250ML 250 ML IVPB SCH (01:10)
[2017-04-18] MEDS: IV SET AND CAP CHANGE INJ INJ SCH (01:15)
[2017-04-18] MEDS ORDERED: PANTOPRAZOLE SODIUM IV 40 MG VIAL IV SCH (01:30)
[2017-04-18] MEDS ORDERED: ENOXAPARIN SODIUM 40 MG/0.4 ML SYG SUBCU SCH (01:30)
[2017-04-18] MEDS: SODIUM CHLORIDE 0.9% (FLUSH) 10 ML SYG IV PRN (01:33)
[2017-04-18] MEDS: ACETAMINOPHEN 325 MG TAB PO PRN (01:33)
[2017-04-18] MEDS: GENTAMICIN 0.3% OPHTH SOL 1 DROP BOTH_EYES SCH ×4 (01:33→20:52)
[2017-04-18] MEDS: NYSTATIN POWDER 15GM BTTL TOP SCH ×5 (01:34→20:51)
[2017-04-18] MEDS: LEVALBUTEROL NEBS 1.25 MG/3 ML VIAL INH SCH ×3 (08:17→20:17)
[2017-04-18] MEDS ORDERED: METOPROLOL SUCCINATE XL 50 MG TAB PO SCH (09:00)
[2017-04-18] MEDS ORDERED: SODIUM CHL 0.9% 50ML MIN-BAG+ 50 ML IVPB ONE ×2 (10:26→19:29)
[2017-04-18] MEDS ORDERED: cefTRIAXone SODIUM 1 GM VIAL ONE ×2 (10:26→19:31)
[2017-04-18] MEDS: cefTRIAXone SODIUM 1 GM in SODIUM CHL 0.9% 50ML MIN-BAG+ 50 ML IVPB SCH ×2 (10:31→22:39)
[2017-04-18] MEDS: KCL 20 MEQ/NS 1,000 ML IVS PRN (13:01)
[2017-04-18] MEDS: BIFIDOBACTERIUM INFANTIS 4 MG CAP PO SCH ×2 (13:01→20:50)
--- NOTE | 2017-04-18 17:08 | RAD ---
EXAM DESCRIPTION: Pelvis CLINICAL HISTORY: 89 years Female pain right pelvis COMPARISON: None. TECHNIQUE: Single AP view of the pelvis. FINDINGS: There is bony demineralization. This limits evaluation. Body habitus also significantly compromises evaluation of the sacrum. Vascular calcification is present. Proximal femora appear intact. No definite fracture is noted. IMPRESSION: No acute fracture is identified. CT or MRI could be obtained to better evaluate the hips if there is continued clinical concern. Electronically signed by: Amanda Stern 04/18/2017 5:07 PM CDT
[2017-04-18] MEDS: METOPROLOL TARTRATE 50 MG TAB PO SCH (17:17)
[2017-04-18] MEDS ORDERED: SIMVASTATIN 10 MG TAB PO ONE (19:29)
[2017-04-18] MEDS ORDERED: GABAPENTIN 300 MG CAP ONE (19:30)
[2017-04-18] MEDS ORDERED: OXYBUTYNIN CL 5 MG TAB ONE (19:30)
[2017-04-18] MEDS ORDERED: LISINOPRIL 5 MG TAB ONE (19:30)
[2017-04-18] MEDS ORDERED: PANTOPRAZOLE SODIUM TAB 40 MG PO ONE (19:30)
[2017-04-18] MEDS: OXYBUTYNIN CL 5 MG TAB PO SCH (20:50)
[2017-04-18] MEDS: LISINOPRIL 5 MG TAB PO SCH (20:50)
[2017-04-18] MEDS: SIMVASTATIN 10 MG TAB PO SCH (20:50)
[2017-04-18] MEDS: GABAPENTIN 300 MG CAP PO SCH (20:50)
[2017-04-18] MEDS ORDERED: NON-FORMULARY MEDICATION 1 EA MIS (Lovastatin [Lovastatin] 20 MG) PO SCH (21:00)
[2017-04-18] MEDS ORDERED: INSULIN, REG.(HUMAN) 100 U/ML VIAL ONE (21:19)
[2017-04-19] MEDS: AZITHROMYCIN IV 500 MG in SODIUM CHLORIDE 0.9% 250ML 250 ML IVPB SCH (00:18)
[2017-04-19] MEDS: KCL 20 MEQ/NS 1,000 ML IVS PRN ×2 (04:36→18:02)
[2017-04-19] MEDS: PANTOPRAZOLE SODIUM TAB 40 MG PO SCH ×2 (05:33→05:51)
--- NOTE | 2017-04-19 07:15 | RAD ---
EXAM: Single view chest. INDICATION: Pneumonia. COMPARISON: Chest x-ray: 04/17/2017. FINDINGS: There are right basilar interstitial opacities. The heart is enlarged with a left chest wall pacemaker in place. There is no pneumothorax. Small pleural effusions may be present. IMPRESSION: Right basilar interstitial opacities, which may represent pneumonia Electronically signed by: Vinod Delgado MD 04/19/2017 7:14 AM CDT Workstation: [id number]
[2017-04-19] MEDS: LEVALBUTEROL NEBS 1.25 MG/3 ML VIAL INH SCH ×3 (07:17→20:05)
[2017-04-19] MEDS ORDERED: ENOXAPARIN SODIUM 40 MG/0.4 ML SYG SUBCU ONE (07:45)
[2017-04-19] MEDS ORDERED: SODIUM CHL 0.9% 50ML MIN-BAG+ 50 ML IVPB ONE ×2 (09:39→19:10)
[2017-04-19] MEDS ORDERED: cefTRIAXone SODIUM 1 GM VIAL ONE ×2 (09:40→19:10)
[2017-04-19] MEDS: cefTRIAXone SODIUM 1 GM in SODIUM CHL 0.9% 50ML MIN-BAG+ 50 ML IVPB SCH ×2 (09:43→22:52)
[2017-04-19] MEDS: ACETAMINOPHEN 325 MG TAB PO PRN (09:43)
[2017-04-19] MEDS: ENOXAPARIN SODIUM 40 MG/0.4 ML SYG SUBCU SCH (09:43)
[2017-04-19] MEDS: NYSTATIN POWDER 15GM BTTL TOP SCH ×4 (09:44→20:16)
[2017-04-19] MEDS: GENTAMICIN 0.3% OPHTH SOL 1 DROP BOTH_EYES SCH ×3 (09:44→20:15)
[2017-04-19] MEDS: BIFIDOBACTERIUM INFANTIS 4 MG CAP PO SCH ×2 (09:44→20:16)
[2017-04-19] MEDS: METOPROLOL TARTRATE 50 MG TAB PO SCH ×2 (09:45→17:26)
[2017-04-19] MEDS ORDERED: MAGNESIUM HYDROXIDE 30 ML UD PO ONE (12:20)
--- NOTE | 2017-04-19 13:03 | PN ---
DATE: 04/19/17 SUBJECTIVE: The patient appears to be more normal in her ability to communicate. Still with a decreased appetite. Having difficulty getting her out of bed safely even with therapist's assistance. She normally walks and takes care of herself at home, and has home physical therapy 3 times a week, so a significant decline in her ability to function is noted. She lives at home with her daughter and son-in-law. She does have a rash on primarily her back which may be related either to the sheets or to the cephalosporin that she is now on. OBJECTIVE: Temperature 100.5 with it being 98.8 earlier this morning. Pulse 83 , blood pressure 120/72, pulse oximetry 92% on 2 liters up to 98% on 2 liters. The patient is fairly awake and alert, and seems to respond to questions much more alertly than yesterday. Still with a slight rash over her back to which some moisturizing cream will be applied and make sure it is well rinsed when they give her a bed bath. LUNGS: Have some diminished breath sounds especially in the right base. HEART: Tones within normal limits. ABDOMEN: Has fairly good bowel tones, though somewhat distended possibly suggesting a degree of fecal impaction. LABORATORY: Repeat lab will be done tomorrow morning. A chest x-ray was performed this morning which shows pneumonia being present. ASSESSMENT: 1. Acute altered level of consciousness with marked confusion possibly secondary to an underlying infectious process involving the pneumonia. 2. Acute right lower lobe pneumonia probable community acquired but also observe for response to initial antibiotic treatment course because of the possibility of aspiration pneumonia which may require the addition of Clindamycin if not improving. 3. Bilateral conjunctivitis being treated with Gentamicin ointment showing some improvement. 4. History of hypertension. 5. History of recurring urinary tract infections currently stable. 6. Elevated temperature initially up to 102, now down to 100.5. 7. Chronic obstructive pulmonary disease in a chronic smoker. 8. Leukocytosis showing improvement. 9. Possibility of underlying dementia with exacerbation because of the acute illness. PLAN: The patient normally cares for herself and is able to ambulate without significant assistance. To this end, Physical Therapy and nurse therapy with ambulation as well as an ambulation study by Respiratory to be performed. Will continue with at least a third day of antibiotics by tomorrow and reevaluate. When clinically stable and able to manage, will consider home with continued home health. If she is unable to safely ambulate and to assist with her ongoing care, also must consider possibly by Friday the use of Swing Bed rehabilitation to improve her abilities and in an effort to prevent other increased risk of falling and injury to be present. Reevaluate in the morning with lab and x-ray. #[id number] OLENA
--- NOTE | 2017-04-19 16:37 | RAD ---
EXAM DESCRIPTION: Knee,Right 2 or More Views CLINICAL HISTORY: 89 years Female pain, not walking COMPARISON: None. TECHNIQUE: Right knee, 3 views FINDINGS: Bony demineralization. Vascular calcification. Chondrocalcinosis. No acute fracture or dislocation noted IMPRESSION: No acute fracture is identified. Electronically signed by: Amanda Stern 04/19/2017 4:35 PM CDT
[2017-04-19] MEDS ORDERED: SODIUM CHLORIDE 0.9% 250ML 250 ML ONE (19:08)
[2017-04-19] MEDS ORDERED: AZITHROMYCIN IV 500 MG VIAL IVPB ONE (19:10)
[2017-04-19] MEDS: OXYBUTYNIN CL 5 MG TAB PO SCH (20:15)
[2017-04-19] MEDS: GABAPENTIN 300 MG CAP PO SCH (20:15)
[2017-04-19] MEDS: LISINOPRIL 5 MG TAB PO SCH (20:16)
[2017-04-19] MEDS: SIMVASTATIN 10 MG TAB PO SCH (20:16)
[2017-04-20] MEDS: AZITHROMYCIN IV 500 MG in SODIUM CHLORIDE 0.9% 250ML 250 ML IVPB SCH (01:11)
[2017-04-20] MEDS: PANTOPRAZOLE SODIUM TAB 40 MG PO SCH (06:16)
--- NOTE | 2017-04-20 07:21 | RAD ---
EXAM: Single view chest. INDICATION: Pneumonia. COMPARISON: Chest x-ray: 04/19/2017. FINDINGS: There are bibasilar interstitial opacities. The heart is enlarged with a left chest wall pacemaker in place. Bilateral pleural effusions may be present. There is no pneumothorax. IMPRESSION: Bibasilar interstitial opacities, which may represent atelectasis or pneumonia. Electronically signed by: Vinod Delgado MD 04/20/2017 7:19 AM CDT Workstation: [id number]
[2017-04-20] MEDS: LEVALBUTEROL NEBS 1.25 MG/3 ML VIAL INH SCH ×3 (07:33→20:25)
[2017-04-20] MEDS: METOPROLOL TARTRATE 50 MG TAB PO SCH ×3 (07:57→17:53)
[2017-04-20] MEDS ORDERED: SODIUM CHLORIDE 0.9% 1000ML 1,000 ML IVS PRN (08:10)
[2017-04-20] MEDS: BIFIDOBACTERIUM INFANTIS 4 MG CAP PO SCH ×2 (09:03→20:10)
[2017-04-20] MEDS: NYSTATIN POWDER 15GM BTTL TOP SCH ×4 (09:03→20:09)
[2017-04-20] MEDS: ENOXAPARIN SODIUM 40 MG/0.4 ML SYG SUBCU SCH (09:03)
[2017-04-20] MEDS: GENTAMICIN 0.3% OPHTH SOL 1 DROP BOTH_EYES SCH ×3 (09:03→20:10)
[2017-04-20] MEDS ORDERED: KETOROLAC TROMETHAMINE INJ 30 MG/ML VIAL IV ONE (10:31)
[2017-04-20] MEDS ORDERED: SODIUM CHL 0.9% 50ML MIN-BAG+ 50 ML IVPB ONE ×2 (11:22→19:50)
[2017-04-20] MEDS ORDERED: cefTRIAXone SODIUM 1 GM VIAL ONE ×2 (11:22→19:51)
[2017-04-20] MEDS: cefTRIAXone SODIUM 1 GM in SODIUM CHL 0.9% 50ML MIN-BAG+ 50 ML IVPB SCH ×2 (11:52→22:36)
--- NOTE | 2017-04-20 12:17 | CT ---
CT pelvis without contrast. INDICATION: Right hip pain. COMPARISON: Pelvis radiograph from 04/18/2017. Imaging from CT abdomen/pelvis from 05/23/2014, but report unavailable at the time of dictation TECHNIQUE: Contiguous axial CT imaging of the pelvis was obtained without IV contrast. Coronal and sagittal reformats were included. This exam was performed according to our departmental dose-optimization program which includes use of Automated Exposure Control, adjustment of the mA and/or kV according to patient size and/or use of iterative reconstruction technique. FINDINGS: No acute fracture, dislocation or suspicious osseous lesions identified. No displaced or diastatic pelvic bone fractures identified. There are hypertrophic degenerative changes of the visualized spine including multilevel degenerative disc disease at L5-S1, and hypertrophic degenerative changes of the facet joints with minimal, likely degenerative type retrolisthesis of L4 on L5, stable compared to the CT abdomen/pelvis from 05/23/2014. There is a large stool ball in the rectum and large stool burden in the remainder the visualized colon. No dilated loops of small bowel in the visualized abdomen. Anaya catheter in the urinary bladder. Foci of air in the urinary bladder is likely on the basis of instrumentation. There is moderate calcific atherosclerotic disease of the visualized abdominal aorta with incompletely visualized fusiform aneurysmal dilation of the abdominal aorta measuring up to 4.8 cm in maximum dimension. This has increased in size compared to CT examination from 05/23/2014, at which point it measured up to 3.6 cm. Impression: 1. No CT evidence for acute osseous abnormality of the right hip or pelvis. 2. Increasing fusiform aneurysmal dilation of the incompletely visualized abdominal aorta. CT of the abdomen and pelvis is recommended for more complete assessment. 3. Large stool ball in the colon. Correlation for fecal impaction is recommended. 4. Other findings, as above. Electronically signed by: Abilio Christianson MD 04/20/2017 12:16 PM CDT Workstation: [id number]
[2017-04-20] MEDS ORDERED: BISACODYL SUPPOSITORY 10 MG PR ONE (12:45)
[2017-04-20] MEDS ORDERED: MAGNESIUM HYDROXIDE 30 ML UD PO ONE (12:46)
[2017-04-20] MEDS ORDERED: SODIUM CHLORIDE 0.9% 250ML 250 ML ONE (19:50)
[2017-04-20] MEDS ORDERED: AZITHROMYCIN IV 500 MG VIAL IVPB ONE (19:52)
--- NOTE | 2017-04-20 20:01 | PN ---
DATE: 04/20/17 SUPERVISING PHYSICIAN: Yonny Porras M.D. SUBJECTIVE: The patient is communicative this morning. She seems to be back to her baseline mental status. She continues to be hesitant to get out of bed. Says both her right knee and right hip continue to hurt. OBJECTIVE: VITAL SIGNS: T max 99.0, pulse 71, blood pressure 127/78, respirations 20, satting 97% on nasal cannula at rest. I's and O's show a positive balance of 205 with 1580 in, 1375 out. Weight 80.4 kg. CHEST: Lung sounds are diminished more so on the right than the left with just faint rhonchi noted on the left posterior aspect. HEART: regular rate and rhythm. ABDOMEN: Soft, non-tender. Positive bowel sounds. ABDOMEN: Slightly distended with positive bowel sounds, but non-tender. EXTREMITIES: No clubbing, cyanosis or edema. NEUROLOGIC: She is alert and oriented times three. LABORATORY: White count now is normalized at 8.0, hemoglobin 12.2, hematocrit 38.1, platelet count 136,000. Differential shows to have a normal presentation with no left shift. Electrolytes today show an elevated potassium at 5.1 with sodium 135, BUN 19, creatinine 0.8, calcium 9.0. RADIOLOGY: Chest x-ray today per radiology interpretation single view chest shows continued bilateral interstitial opacities which could represent atelectasis or pneumonia. CT of the pelvis is pending. ASSESSMENT: 1. Acute altered level of consciousness with marked confusion on admission likely secondary to underlying infectious process, including pneumonia now showing near normal baseline mental status. 2. Acute right lower lobe pneumonia community acquired showing improvement with IV antibiotics. 3. Bilateral conjunctivitis being treated with Gentamicin and ointment showing improvement. 4. History of hypertension. 5. History of recurrent urinary tract infections with no culture results prior to antibiotic initiation. 6. Febrile illness secondary to underlying pneumonia showing improvement after initiation of antibiotic therapy. 7. Chronic obstructive pulmonary disease in a chronic smoker with exacerbation secondary to underlying community acquired right lower lobe pneumonia. 8. Leukocytosis, improving. 9. Questionable dementia with exacerbation secondary to acute illness. 10. Ongoing right hip and knee pain, unknown etiology, possibly secondary to extended immobility. PLAN: The patient will need further evaluation with Physical Therapy. She still reports that her knee and hip are painful even with minimal movement, therefore after reviewing the x-ray reports based off findings per radiology interpretation, will do a CT of the pelvis to further rule out any underlying acute injuries. Will continue with aggressive respiratory therapy and IV antibiotics with anticipation of discharging tomorrow once Physical Therapy has had time to evaluate. If the patient is able to ambulate safely, she does have her daughter who is able to provide care. Consideration for discharge versus Swing Bed are considered. Until that time, will continue to monitor and treat appropriately. #[id number] [facility]
[2017-04-20] MEDS: SIMVASTATIN 10 MG TAB PO SCH (20:10)
[2017-04-20] MEDS: GABAPENTIN 300 MG CAP PO SCH (20:10)
[2017-04-20] MEDS: OXYBUTYNIN CL 5 MG TAB PO SCH (20:10)
[2017-04-20] MEDS: SODIUM CHLORIDE 0.9% (FLUSH) 10 ML SYG IV PRN (20:10)
[2017-04-20] MEDS: LISINOPRIL 5 MG TAB PO SCH (20:11)
--- NOTE | 2017-04-20 23:42 | PCM.CORE ---
Physician DVT/VTE - Nurse DVT Assessment & Total Each Risk Factor Represents 3 Points: Age over 75 years, Medical PT with Hx of [place], CHF, Severe infection/sepsis Each Risk Factor Represents 2 Points: Confined to bed >72 hours Each Risk Factor Represents 1 Point: Medical PT at Bed Rest, Hx of smoking past year Each Risk Factor is 1 Point: Obesity (BMI >25) DVT Assessment Score: 11 - 5 or more Very High Risk Treatments: Early Ambulation *, Sequential Compression Device Pharmacological: Enoxaparin 40mg SQ Daily
[2017-04-21] MEDS: AZITHROMYCIN IV 500 MG in SODIUM CHLORIDE 0.9% 250ML 250 ML IVPB SCH (00:44)
[2017-04-21] MEDS: IV SET AND CAP CHANGE INJ INJ SCH (00:45)
[2017-04-21] MEDS: PANTOPRAZOLE SODIUM TAB 40 MG PO SCH (06:12)
[2017-04-21] MEDS: METOPROLOL TARTRATE 50 MG TAB PO SCH ×2 (08:24→08:26)
[2017-04-21] MEDS: GENTAMICIN 0.3% OPHTH SOL 1 DROP BOTH_EYES SCH (08:24)
[2017-04-21] MEDS: BIFIDOBACTERIUM INFANTIS 4 MG CAP PO SCH (08:24)
[2017-04-21] MEDS: NYSTATIN POWDER 15GM BTTL TOP SCH (08:24)
[2017-04-21] MEDS: ENOXAPARIN SODIUM 40 MG/0.4 ML SYG SUBCU SCH (08:24)
[2017-04-21] MEDS: LEVALBUTEROL NEBS 1.25 MG/3 ML VIAL INH SCH (08:50)
[2017-04-21 10:19] VITALS: BP 160/88; TEMP 98; O2SAT 97
[2017-04-21] MEDS ORDERED: SODIUM CHL 0.9% 50ML MIN-BAG+ 50 ML IVPB ONE (11:22)
[2017-04-21] MEDS ORDERED: cefTRIAXone SODIUM 1 GM VIAL ONE (11:22)
[2017-04-21] MEDS: cefTRIAXone SODIUM 1 GM in SODIUM CHL 0.9% 50ML MIN-BAG+ 50 ML IVPB SCH (11:24)
[2017-04-21] MEDS ORDERED: AZITHROMYCIN 250 MG TAB PO ONE (23:00)
--- NOTE | 2017-04-30 13:56 | DS ---
SUPERVISING PHYSICIAN: Geovanni Kennedy MD DISCHARGE DIAGNOSIS: 1. Recent acute admission for altered level of consciousness with confusion secondary to infectious process including right lower lobe pneumonia and a urinary tract infection, showing good clinical improvement with parenteral antibiotics and aggressive pulmonary hygiene. 2. Acute lower lobe pneumonia, community acquired, showing improvement after IV antibiotics, requiring p.o. antibiotic therapy in Swing Bed admission. 3. Bilateral conjunctivitis, showing improvement after being treated with gentamicin ointment. 4. History of hypertension. 5. History of recurrent urinary tract infections with no culture results prior to antibiotic initiation, but showing good clinical improvement and response to antibiotic therapy. 6. Chronic obstructive pulmonary disease in a chronic smoker with exacerbation prior to discharge, showing improvement with community acquired right lower lobe pneumonia. 7. Dementia with some exacerbation secondary to recent acute illness. 8. Significant deconditioning secondary to #1 requiring Swing Bed admission for rehabilitation and strengthening. HISTORY OF PRESENT ILLNESS: Ms. Vogt is an 89-year-old female patient who was initially admitted to the hospital from the Emergency Room on 04/17/17 where she was brought to the Emergency Department due to worsening shortness of breath, cough, and fever. Prior to admission, she reported an elevated temperature of 102. She had had respiratory distress with shortness of breath, cough and fever the day before admission and was seen in the clinic. There, she was given a shot and prescription. On the way home, she fell asleep, but when she was awakened at 8 PM, she was markedly confused, disoriented and significantly changed in her level of consciousness. She had had similar episodes of infections in the past, each time to include a urinary tract infection and pneumonia beginning in June of 2016 and again in October of 2016 and again with current admission on 04/17/17. She was admitted to the hospital from the Emergency Department for specific treatment for pneumonia and possible urinary tract infection with notable bilateral conjunctivitis. While on Acute Care, she was treated with antibiotics of Rocephin and azithromycin. She did show good clinical improvement. She was also been treated for urinary tract infection and bilateral conjunctivitis with ophthalmic drugs and gentamicin. She had improvement in her mental status as well as respiratory effort after hospitalization in Acute Care. She was showing significant deconditioning and weakness and it was felt she was unable to fully assist herself at home without assistance. Therefore, it was felt she was not safe to be discharged. She had a physical therapy evaluation with recommendation that the patient be admitted to Swing Bed for ongoing physical therapy and reconditioning prior to discharging home. The patient was admitted to Swing Bed on 04/21/17. LABORATORY: White count on admission was 16,000. At discharge, prior to going to Swing Bed, white count was 6.3. Hemoglobin was stable at 12.6, hematocrit 38.6, platelet count 187,000, differential was within normal limits. Chemistries on admission showed normal electrolytes with BUN 14, creatinine 0.7. She did have elevation in her potassium at one time during Acute Care, but this was resolving prior to discharge to Swing Bed. Electrolytes normal with potassium 4.3. Liver functions all within normal limits. Urinalysis on admission showed 15 ketones, trace intact blood, otherwise within normal limits. Repeat urinalysis through the admission and prior to discharge all were within normal limits. MICROBIOLOGY: Sputum culture showed normal panchito at 48 hours. Influenza A and B by PCR was negative. Two sets of blood cultures remained negative at 5 days. RADIOLOGY: Chest x-ray in the Emergency Department prior to admission showed increased densities in the left lower lung base which may reflect developing infiltrate. She also had multiple other x-rays including pelvis, pelvic CT, hip x-ray, knee due to right sided knee pain and hip pain and all were negative for any acute findings. Final chest x-ray on Acute Care per radiologic interpretation showed bibasilar interstitial opacities which may represent atelectasis or pneumonia. HOSPITAL COURSE: Ms. Vogt was admitted to Acute Care as noted above for both pneumonia and underlying urinary tract infection. She was initiated on antibiotics while on Acute Care for underlying infection that included Rocephin and azithromycin. She also had bilateral conjunctivitis which was treated with gentamicin ophthalmic drops. She was initiated on aggressive pulmonary hygiene and did fairly well. She improved clinically, but was severely deconditioned and therefore was felt the best option was to be admitted to Swing Bed. PLAN: Ms. Vogt was admitted to Swing Bed on 04/21/17 for deconditioning to continue with rehabilitation efforts. All medications including antibiotics were continued as noted on Swing Bed admission. She was in stable condition at time of discharge from Acute Care and admission to Swing Bed. #[id number] [facility]
== END 2017-04-21 11:30 | disposition swing bed (61) | DRG 190 ==
LOC: ER 20:51 → MS 23:29 → OBSVTOIN 23:29
PROVIDERS: ADMIT Emergency Medicine; ATTEND Nurse Practitioner Family
DX: J44.0 Chronic obstructive pulmonary disease with (acute) lower respiratory infection (principal); J18.9 Pneumonia, unspecified organism; E87.1 Hypo-osmolality and hyponatremia; I50.32 Chronic diastolic (congestive) heart failure; N39.0 Urinary tract infection, site not specified; H10.9 Unspecified conjunctivitis; F03.90 Unspecified dementia, unspecified severity, without behavioral disturbance, psychotic disturbance, mood disturbance, and anxiety; I11.0 Hypertensive heart disease with heart failure; I25.10 Atherosclerotic heart disease of native coronary artery without angina pectoris; I71.4 Abdominal aortic aneurysm, without rupture; M25.551 Pain in right hip; M25.561 Pain in right knee; R21 Rash and other nonspecific skin eruption; K56.41 Fecal impaction; Z88.1 Allergy status to other antibiotic agents; Z95.0 Presence of cardiac pacemaker; Z79.82 Long term (current) use of aspirin; Z79.899 Other long term (current) drug therapy; Z87.891 Personal history of nicotine dependence

== ENCOUNTER 2017-04-21 11:30 | Inpatient (IN) | payer MEDICARE ==
[2017-04-21] MEDS ORDERED: ACETAMINOPHEN 500 MG TAB PO PRN (13:44)
[2017-04-21] MEDS ORDERED: MAGNESIUM HYDROXIDE 30 ML UD PO PRN (13:44)
[2017-04-21] MEDS ORDERED: SODIUM PHOS/BIPHOS ENEMA ADULT 133 ML BTTL PR PRN (13:44)
[2017-04-21] MEDS ORDERED: LEVALBUTEROL NEBS 1.25 MG/3 ML VIAL NEB PRN (13:46)
[2017-04-21] MEDS ORDERED: AZITHROMYCIN 250 MG TAB PO ONE (13:46)
--- NOTE | 2017-04-21 13:51 | PCM.CORE ---
Physician DVT/VTE - Nurse DVT Assessment & Total Each Risk Factor Represents 3 Points: Age over 75 years, Medical PT with Hx of [place], CHF, Severe infection/sepsis Each Risk Factor Represents 2 Points: Confined to bed >72 hours Each Risk Factor is 1 Point: Obesity (BMI >25), Serious Lung disease (pnemonia < 1month, COPD, emphysema,etc) DVT Assessment Score: 10 - 5 or more Very High Risk Treatments: Early Ambulation *, Sequential Compression Device Pharmacological: Enoxaparin 40mg SQ Daily
[2017-04-21] MEDS ORDERED: ENOXAPARIN SODIUM 40 MG/0.4 ML SYG SUBCU SCH (14:00)
[2017-04-21] MEDS: LEVALBUTEROL NEBS 1.25 MG/3 ML VIAL NEB SCH ×2 (14:25→20:16)
[2017-04-21] MEDS: GENTAMICIN 0.3% OPHTH SOL 1 DROP BOTH_EYES SCH ×2 (14:58→21:11)
[2017-04-21] MEDS: NYSTATIN POWDER 15GM BTTL TOP SCH (17:00)
[2017-04-21] MEDS ORDERED: METOPROLOL TARTRATE 25 MG TAB ONE (19:34)
[2017-04-21] MEDS ORDERED: SIMVASTATIN 10 MG TAB PO ONE (19:34)
[2017-04-21] MEDS ORDERED: ASPIRIN (ENTERIC COATED) 325 MG TAB PO ONE (19:35)
[2017-04-21] MEDS ORDERED: FISH OIL 1,200 MG CAP ONE (19:35)
[2017-04-21] MEDS ORDERED: GABAPENTIN 300 MG CAP ONE (19:35)
[2017-04-21] MEDS ORDERED: CALCIUM CARBONATE-VITAMIN D 500 MG TAB ONE (19:35)
[2017-04-21] MEDS ORDERED: BIFIDOBACTERIUM INFANTIS 4 MG CAP ONE (19:35)
[2017-04-21] MEDS ORDERED: LISINOPRIL 5 MG TAB ONE (19:35)
[2017-04-21] MEDS ORDERED: CEFDINIR 300 MG CAP ONE (19:36)
[2017-04-21] MEDS ORDERED: OXYBUTYNIN CL 5 MG TAB ONE (19:36)
[2017-04-21] MEDS ORDERED: NON-FORMULARY MEDICATION 1 EA MIS (Lovastatin [Lovastatin] 20 MG) PO SCH (21:00)
[2017-04-21] MEDS ORDERED: NON-FORMULARY MEDICATION 1 EA MIS (Calcium [Calcium] 600 MG) PO SCH (21:00)
[2017-04-21] MEDS ORDERED: NON-FORMULARY MEDICATION 1 EA MIS (Oxybutynin Chloride [Oxybutynin Chloride Er] 10 MG) PO SCH (21:00)
[2017-04-21] MEDS: BIFIDOBACTERIUM INFANTIS 4 MG CAP PO SCH (21:08)
[2017-04-21] MEDS: ASPIRIN (ENTERIC COATED) 325 MG TAB PO SCH (21:08)
[2017-04-21] MEDS: CALCIUM CARBONATE-VITAMIN D 500 MG TAB PO SCH (21:08)
[2017-04-21] MEDS: CEFDINIR 300 MG CAP PO SCH (21:08)
[2017-04-21] MEDS: LISINOPRIL 5 MG TAB PO SCH (21:08)
[2017-04-21] MEDS: SIMVASTATIN 10 MG TAB PO SCH (21:09)
[2017-04-21] MEDS: GABAPENTIN 300 MG CAP PO SCH (21:09)
[2017-04-21] MEDS: FISH OIL 1,200 MG CAP PO SCH (21:09)
[2017-04-21] MEDS: METOPROLOL TARTRATE 50 MG TAB PO SCH (21:10)
--- NOTE | 2017-04-21 22:24 | HP ---
SUPERVISING PHYSICIAN: Geovanni Kennedy M.D. CHIEF COMPLAINT: Deconditioning. HISTORY OF PRESENT ILLNESS: Ms. Vogt is an 89 year-old female patient that initially admitted to the hospital from the Emergency Department on 04/17/17 after she was brought to the Emergency Department due to worsening shortness of breath, cough and fever. Prior to admission, she reported an elevated temperature of 102. She had some respiratory distress, shortness of breath, cough and fever the day before admission and was actually seen in the clinic. There she was given a shot and a prescription. On the way home, she fell asleep and when she woke up at 8:00 PM she was markedly confused, disoriented with significant change in her level of consciousness. She had had previous similar episodes of infections in the past, each time they included usually a urinary tract infection and pneumonia beginning in June 2016 and again in October of 2016, and current admission on 04/17/17. She was admitted to the hospital from the Emergency Department for specific treatment of pneumonia and a possible urinary tract infection with notable bilateral conjunctivitis. While on Acute Care, she was treated with antibiotics with Rocephin and Azithromycin. She did show good clinical improvement. She was also treated for a urinary tract infection and bilateral conjunctivitis with ophthalmic drops and Gentamicin. She had improvement in her mental status as well as respiratory effort after hospitalization on Acute Care. She was showing significant deconditioning and weakness and it was felt that she was unable to fully assist herself at home without assistance, therefore it was felt that she was not safe to be discharged. She had a Physical Therapy evaluation with prescriptions that the patient be admitted to Swing Bed for ongoing physical therapy and reconditioning prior to discharging home. The patient was admitted to Swing Bed today on 04/21/17. PAST MEDICAL HISTORY: 1. Recurring urinary tract infections with pneumonia. 2. Hypertension. 3. Chronic obstructive pulmonary disease in a chronic smoker. 4. 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 5. History of urinary incontinence with recurring urinary tract infections. 6. History of coronary artery stenosis. 7. History of congestive heart failure with diastolic dysfunction component with no recent echocardiogram. 8. History of coronary artery disease. 9. History of coronary stenosis. 10. History of abdominal aortic aneurysm that measured 4.3 cm in 2008. 11. History of diverticulosis. 12. History of back pain with degenerative disc disease. PAST SURGICAL HISTORY: 1. Hysterectomy. 2. Pacemaker placement. CURRENT MEDICATIONS: Please refer to nursing notes and updated list of her home medications. ALLERGIES: LEVOFLOXACIN. FAMILY HISTORY: Positive for cancer, diabetes mellitus and hypertension. 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 She still smokes and has done so for over 60 years, but does not wish to stop at this time, according to the patient. She lives at home with her daughter. PHYSICAL EXAMINATION: VITAL SIGNS: Temperature 98.5, pulse 72, blood pressure 155/88, respirations 20 , satting 97% on 2 liters nasal cannula. Admission weight was 81.9 kg. GENERAL: The patient is resting in bed and appears to be comfortable, in no distress. She is alert and oriented. CHEST: Lungs were slightly diminished towards the bases, more so on the right than the left. No notable rhonchi was heard. No wheezing. CARDIOVASCULAR: Regular rate and rhythm without appreciable murmurs, gallops, or rubs. ABDOMEN: Soft, non-tender. Positive bowel sounds. Somewhat slightly distended but no rebound tenderness. EXTREMITIES: No clubbing, cyanosis or edema. NEUROLOGIC: She is alert and oriented time three. LABORATORY: Pending CBC, CMP. Urinalysis is also pending. RADIOLOGY: Pending chest x-ray. ASSESSMENT: 1. Recent Acute Care admission for altered level of consciousness with confusion secondary to infectious process including both right lower lobe pneumonia and a urinary tract infection showing good clinical improvement with parenteral antibiotics and aggressive pulmonary hygiene. 2. Acute lower lobe pneumonia community acquired showing improvement after IV antibiotics requiring ongoing p.o. antibiotic therapy and Swing Bed admission. 3. Bilateral conjunctivitis showing improvement after being treated with Gentamicin ointment. 4. History of hypertension. 5. History of recurrent urinary tract infections with no culture results prior to last Acute Care admission, but showing good improvement with antibiotic therapy. 6. Chronic obstructive pulmonary disease in a chronic smoker with exacerbation prior to discharge showing improvement with a community acquired right lower lobe pneumonia. 7. Dementia with some exacerbation secondary to recent acute illness. 8. Significant deconditioning secondary to number 1 requiring Swing Bed admission for rehabilitation and strengthening. PLAN: The patient will be admitted to Swing Bed today. She will have a Physical Therapy consultation for ongoing physical therapy and rehabilitation. Will continue with antibiotic therapy to include Cefdinir for a total of 7 days. She will finish up her Azithromycin p.o. doses today. Will resume DVT prophylaxis as per protocol. Will resume her home medications once they have been updated and verified. Will anticipate length of stay to be at least 3 to 7 days. Until discharge, will continue to monitor the patient along with Physical Therapy and treat appropriately. #[id number] [facility]
[2017-04-21] MEDS ORDERED: cloNIDine HCL 0.2 MG TAB PO ONE (23:09)
[2017-04-21] MEDS ORDERED: NITROGLYCERIN 0.4 MG/HR PATCH TOP ONE (23:10)
[2017-04-21] MEDS ORDERED: BISACODYL SUPPOSITORY 10 MG PR ONE (23:15)
[2017-04-21] MEDS ORDERED: MAGNESIUM HYDROXIDE 30 ML UD PO ONE (23:17)
[2017-04-22] MEDS ORDERED: cloNIDine HCL 0.2 MG TAB PO ONE (01:11)
[2017-04-22] MEDS ORDERED: OMEPRAZOLE CAP 20 MG CAP ONE (02:10)
[2017-04-22] MEDS: OMEPRAZOLE CAP 20 MG CAP PO SCH (06:29)
--- NOTE | 2017-04-22 07:17 | RAD ---
Procedure: XR CHEST 1 VIEW Exam Date: 04/22/2017 Ordering Provider: Hipolito Medrano NP Clinical Indication: pneumonia Comparison: 04/20/2017 Findings: Left subclavian pacer with leads in appropriate position. Cardiomediastinal silhouette is stable. Focal lung consolidation: Bibasilar subsegmental atelectasis and/or infiltrate. Pleural effusion: No large pleural effusions. Pneumothorax: None Acute bony or soft tissue abnormality: None Impression: 1. Bibasilar subsegmental atelectasis and/or infiltrate. 2. No other significant interval change. Electronically signed by: Joshua Booth MD 04/22/2017 7:15 AM CDT
[2017-04-22] MEDS ORDERED: DOCUSATE SODIUM 100 MG CAP ONE (07:51)
[2017-04-22] MEDS ORDERED: ENOXAPARIN SODIUM 40 MG/0.4 ML SYG SUBCU ONE (07:51)
[2017-04-22] MEDS: LEVALBUTEROL NEBS 1.25 MG/3 ML VIAL NEB SCH ×3 (09:00→20:32)
[2017-04-22] MEDS: BIFIDOBACTERIUM INFANTIS 4 MG CAP PO SCH ×2 (09:38→20:14)
[2017-04-22] MEDS: DOCUSATE SODIUM 100 MG CAP PO SCH (09:38)
[2017-04-22] MEDS: CEFDINIR 300 MG CAP PO SCH ×2 (09:38→20:14)
[2017-04-22] MEDS: METOPROLOL TARTRATE 50 MG TAB PO SCH ×2 (09:38→16:26)
[2017-04-22] MEDS: ENOXAPARIN SODIUM 40 MG/0.4 ML SYG SUBCU SCH (09:39)
[2017-04-22] MEDS: GENTAMICIN 0.3% OPHTH SOL 1 DROP BOTH_EYES SCH ×3 (10:00→21:07)
[2017-04-22] MEDS ORDERED: REMOVE OLD PATCH TOP ONE (11:30)
[2017-04-22] MEDS: FISH OIL 1,200 MG CAP PO SCH (20:14)
[2017-04-22] MEDS: CALCIUM CARBONATE-VITAMIN D 500 MG TAB PO SCH (20:14)
[2017-04-22] MEDS: ZOLPIDEM TARTRATE 10 MG TAB PO SCH (20:14)
[2017-04-22] MEDS: ASPIRIN (ENTERIC COATED) 325 MG TAB PO SCH (20:14)
[2017-04-22] MEDS: SIMVASTATIN 10 MG TAB PO SCH (20:14)
[2017-04-22] MEDS: LISINOPRIL 5 MG TAB PO SCH (20:14)
[2017-04-22] MEDS: GABAPENTIN 300 MG CAP PO SCH (20:14)
[2017-04-22] MEDS: OXYBUTYNIN CL 5 MG TAB PO SCH (20:14)
[2017-04-22] MEDS: NYSTATIN POWDER 15GM BTTL TOP SCH ×2 (20:16)
[2017-04-23] MEDS: OMEPRAZOLE CAP 20 MG CAP PO SCH (05:45)
[2017-04-23] MEDS: LEVALBUTEROL NEBS 1.25 MG/3 ML VIAL NEB SCH ×3 (08:59→19:35)
[2017-04-23] MEDS: CEFDINIR 300 MG CAP PO SCH ×2 (09:36→20:37)
[2017-04-23] MEDS: BIFIDOBACTERIUM INFANTIS 4 MG CAP PO SCH ×2 (09:36→20:36)
[2017-04-23] MEDS: GENTAMICIN 0.3% OPHTH SOL 1 DROP BOTH_EYES SCH ×3 (09:36→20:37)
[2017-04-23] MEDS: METOPROLOL TARTRATE 50 MG TAB PO SCH ×2 (09:36→16:16)
[2017-04-23] MEDS: DOCUSATE SODIUM 100 MG CAP PO SCH (09:36)
[2017-04-23] MEDS: NYSTATIN POWDER 15GM BTTL TOP SCH ×4 (09:37→20:36)
[2017-04-23] MEDS: ENOXAPARIN SODIUM 40 MG/0.4 ML SYG SUBCU SCH (09:39)
[2017-04-23] MEDS: OXYBUTYNIN CL 5 MG TAB PO SCH (20:36)
[2017-04-23] MEDS: CALCIUM CARBONATE-VITAMIN D 500 MG TAB PO SCH (20:36)
[2017-04-23] MEDS: LISINOPRIL 5 MG TAB PO SCH (20:36)
[2017-04-23] MEDS: ASPIRIN (ENTERIC COATED) 325 MG TAB PO SCH (20:36)
[2017-04-23] MEDS: GABAPENTIN 300 MG CAP PO SCH (20:36)
[2017-04-23] MEDS: SIMVASTATIN 10 MG TAB PO SCH (20:36)
[2017-04-23] MEDS: ZOLPIDEM TARTRATE 10 MG TAB PO SCH (20:37)
[2017-04-23] MEDS: FISH OIL 1,200 MG CAP PO SCH (20:37)
[2017-04-24] MEDS: OMEPRAZOLE CAP 20 MG CAP PO SCH (06:21)
[2017-04-24] MEDS: METOPROLOL TARTRATE 50 MG TAB PO SCH ×2 (08:02→16:52)
[2017-04-24] MEDS: ENOXAPARIN SODIUM 40 MG/0.4 ML SYG SUBCU SCH (08:48)
[2017-04-24] MEDS: BIFIDOBACTERIUM INFANTIS 4 MG CAP PO SCH ×2 (08:48→20:24)
[2017-04-24] MEDS: DOCUSATE SODIUM 100 MG CAP PO SCH (08:48)
[2017-04-24] MEDS: GENTAMICIN 0.3% OPHTH SOL 1 DROP BOTH_EYES SCH ×3 (08:48→20:26)
[2017-04-24] MEDS: CEFDINIR 300 MG CAP PO SCH ×2 (08:48→20:24)
[2017-04-24] MEDS: NYSTATIN POWDER 15GM BTTL TOP SCH ×4 (08:49→20:27)
[2017-04-24] MEDS: LEVALBUTEROL NEBS 1.25 MG/3 ML VIAL NEB SCH ×3 (09:30→19:50)
--- NOTE | 2017-04-24 18:13 | PN ---
DATE: 04/24/17 SUPERVISING PHYSICIAN: Geovanni Kennedy M.D. SUBJECTIVE: The patient is sitting up in her chair in her room. She is eating her meal. She has no complaints of shortness of breath, chest pain, nausea, vomiting or diarrhea. She feels like her physical therapy is progressing well. OBJECTIVE: VITAL SIGNS: She is afebrile, heart rate 77, blood pressure 161/74, respiratory rate 20, O2 sat is 95% on 1 liter nasal cannula. RESPIRATORY: Essentially clear to auscultation bilaterally, but she is slightly diminished at the bases. CARDIOVASCULAR: Regular rate and rhythm. ABDOMEN: Soft, nondistended, non-tender. Bowel sounds are positive. EXTREMITIES: No clubbing , cyanosis or edema. NEUROLOGIC: She is awake, alert and oriented times three. LABORATORY: There are no labs and films to report at this time. ASSESSMENT: 1. Recent Acute Care admission for altered level of consciousness with confusion secondary to infectious process including both right lower lobe pneumonia and a urinary tract infection showing good clinical improvement with parenteral antibiotics and aggressive pulmonary hygiene. 2. Acute lower lobe pneumonia community acquired showing improvement after IV antibiotics requiring ongoing p.o. antibiotic therapy and Swing Bed admission. 3. Bilateral conjunctivitis showing improvement after being treated with Gentamicin ointment. 4. History of hypertension. 5. History of recurrent urinary tract infections with no culture results prior to last Acute Care admission, but showing good improvement with antibiotic therapy. 6. Chronic obstructive pulmonary disease in a chronic smoker with exacerbation prior to discharge showing improvement with a community acquired right lower lobe pneumonia. 7. Dementia with some exacerbation secondary to recent acute illness. 8. Significant deconditioning secondary to number 1 requiring Swing Bed admission for rehabilitation and strengthening. PLAN: We will continue present supportive care. She will continue with physical therapy for rehab and strengthening. She will continue with antibiotic therapy of Cefdinir for a total of 7 days. We will followup with Physical Therapy on anticipated date of discharge. Until then we will continue to monitor the patient closely and follow as needed. Dr. Kennedy is the collaborating physician available for consultation. #[id number] [facility]
[2017-04-24] MEDS: SIMVASTATIN 10 MG TAB PO SCH (20:24)
[2017-04-24] MEDS: GABAPENTIN 300 MG CAP PO SCH (20:24)
[2017-04-24] MEDS: ZOLPIDEM TARTRATE 10 MG TAB PO SCH (20:24)
[2017-04-24] MEDS: ASPIRIN (ENTERIC COATED) 325 MG TAB PO SCH (20:24)
[2017-04-24] MEDS: OXYBUTYNIN CL 5 MG TAB PO SCH (20:25)
[2017-04-24] MEDS: CALCIUM CARBONATE-VITAMIN D 500 MG TAB PO SCH (20:25)
[2017-04-24] MEDS: FISH OIL 1,200 MG CAP PO SCH (20:25)
[2017-04-24] MEDS: LISINOPRIL 5 MG TAB PO SCH (20:25)
[2017-04-25] MEDS: OMEPRAZOLE CAP 20 MG CAP PO SCH (06:04)
[2017-04-25] MEDS: METOPROLOL TARTRATE 50 MG TAB PO SCH ×2 (07:22→16:34)
[2017-04-25] MEDS: GENTAMICIN 0.3% OPHTH SOL 1 DROP BOTH_EYES SCH (08:51)
[2017-04-25] MEDS: CEFDINIR 300 MG CAP PO SCH ×2 (08:51→21:10)
[2017-04-25] MEDS: DOCUSATE SODIUM 100 MG CAP PO SCH (08:51)
[2017-04-25] MEDS: ENOXAPARIN SODIUM 40 MG/0.4 ML SYG SUBCU SCH (08:51)
[2017-04-25] MEDS: BIFIDOBACTERIUM INFANTIS 4 MG CAP PO SCH ×2 (08:51→21:10)
[2017-04-25] MEDS: NYSTATIN POWDER 15GM BTTL TOP SCH ×4 (08:52→21:10)
[2017-04-25] MEDS: LEVALBUTEROL NEBS 1.25 MG/3 ML VIAL NEB SCH ×3 (09:15→21:22)
[2017-04-25] MEDS: FISH OIL 1,200 MG CAP PO SCH (21:10)
[2017-04-25] MEDS: SIMVASTATIN 10 MG TAB PO SCH (21:10)
[2017-04-25] MEDS: CALCIUM CARBONATE-VITAMIN D 500 MG TAB PO SCH (21:10)
[2017-04-25] MEDS: LISINOPRIL 5 MG TAB PO SCH (21:10)
[2017-04-25] MEDS: OXYBUTYNIN CL 5 MG TAB PO SCH (21:10)
[2017-04-25] MEDS: GABAPENTIN 300 MG CAP PO SCH (21:10)
[2017-04-25] MEDS: ZOLPIDEM TARTRATE 10 MG TAB PO SCH (21:10)
[2017-04-25] MEDS: ASPIRIN (ENTERIC COATED) 325 MG TAB PO SCH (21:10)
[2017-04-26] MEDS: OMEPRAZOLE CAP 20 MG CAP PO SCH (05:55)
[2017-04-26] MEDS: LEVALBUTEROL NEBS 1.25 MG/3 ML VIAL NEB SCH ×3 (08:23→19:49)
[2017-04-26] MEDS: METOPROLOL TARTRATE 50 MG TAB PO SCH ×2 (08:33→17:39)
[2017-04-26] MEDS: BIFIDOBACTERIUM INFANTIS 4 MG CAP PO SCH ×2 (09:12→20:17)
[2017-04-26] MEDS: NYSTATIN POWDER 15GM BTTL TOP SCH ×4 (09:13→20:17)
[2017-04-26] MEDS: CEFDINIR 300 MG CAP PO SCH ×2 (09:13→20:17)
[2017-04-26] MEDS: DOCUSATE SODIUM 100 MG CAP PO SCH (09:13)
[2017-04-26] MEDS: ENOXAPARIN SODIUM 40 MG/0.4 ML SYG SUBCU SCH (09:13)
[2017-04-26] MEDS: GABAPENTIN 300 MG CAP PO SCH (20:16)
[2017-04-26] MEDS: ZOLPIDEM TARTRATE 10 MG TAB PO SCH (20:17)
[2017-04-26] MEDS: LISINOPRIL 5 MG TAB PO SCH (20:17)
[2017-04-26] MEDS: CALCIUM CARBONATE-VITAMIN D 500 MG TAB PO SCH (20:17)
[2017-04-26] MEDS: FISH OIL 1,200 MG CAP PO SCH (20:17)
[2017-04-26] MEDS: SIMVASTATIN 10 MG TAB PO SCH (20:17)
[2017-04-26] MEDS: OXYBUTYNIN CL 5 MG TAB PO SCH (20:17)
[2017-04-26] MEDS: ASPIRIN (ENTERIC COATED) 325 MG TAB PO SCH (20:17)
[2017-04-27] MEDS: OMEPRAZOLE CAP 20 MG CAP PO SCH (05:38)
[2017-04-27] MEDS: LEVALBUTEROL NEBS 1.25 MG/3 ML VIAL NEB SCH ×3 (08:19→19:45)
[2017-04-27] MEDS: BIFIDOBACTERIUM INFANTIS 4 MG CAP PO SCH ×2 (09:14→20:06)
[2017-04-27] MEDS: ENOXAPARIN SODIUM 40 MG/0.4 ML SYG SUBCU SCH (09:14)
[2017-04-27] MEDS: DOCUSATE SODIUM 100 MG CAP PO SCH (09:14)
[2017-04-27] MEDS: CEFDINIR 300 MG CAP PO SCH ×2 (09:14→20:06)
[2017-04-27] MEDS: METOPROLOL TARTRATE 50 MG TAB PO SCH ×2 (09:14→18:07)
[2017-04-27] MEDS: NYSTATIN POWDER 15GM BTTL TOP SCH ×4 (09:14→20:06)
[2017-04-27] MEDS: GABAPENTIN 300 MG CAP PO SCH (20:06)
[2017-04-27] MEDS: OXYBUTYNIN CL 5 MG TAB PO SCH (20:06)
[2017-04-27] MEDS: CALCIUM CARBONATE-VITAMIN D 500 MG TAB PO SCH (20:06)
[2017-04-27] MEDS: LISINOPRIL 5 MG TAB PO SCH (20:06)
[2017-04-27] MEDS: SIMVASTATIN 10 MG TAB PO SCH (20:06)
[2017-04-27] MEDS: FISH OIL 1,200 MG CAP PO SCH (20:06)
[2017-04-27] MEDS: ZOLPIDEM TARTRATE 10 MG TAB PO SCH (20:06)
[2017-04-27] MEDS: ASPIRIN (ENTERIC COATED) 325 MG TAB PO SCH (20:06)
[2017-04-28] MEDS: OMEPRAZOLE CAP 20 MG CAP PO SCH (05:57)
[2017-04-28] MEDS: LEVALBUTEROL NEBS 1.25 MG/3 ML VIAL NEB SCH ×3 (09:20→20:25)
[2017-04-28] MEDS: DOCUSATE SODIUM 100 MG CAP PO SCH (09:33)
[2017-04-28] MEDS: METOPROLOL TARTRATE 50 MG TAB PO SCH ×2 (09:33→22:11)
[2017-04-28] MEDS: CEFDINIR 300 MG CAP PO SCH (09:33)
[2017-04-28] MEDS: ENOXAPARIN SODIUM 40 MG/0.4 ML SYG SUBCU SCH (09:33)
[2017-04-28] MEDS: BIFIDOBACTERIUM INFANTIS 4 MG CAP PO SCH ×2 (09:33→22:09)
--- NOTE | 2017-04-28 20:03 | PN ---
DATE: 04/28/17 SUPERVISING PHYSICIAN: Yonny Porras M.D. SUBJECTIVE: The patient has been doing quite well with her physical therapy over the weekend. She actually ambulated from her bed to the upper portions of the hospital and back. She does have some weakness initially upon arising in the mornings, but again is progressing well. After talking to the family and discussion with Dina, our licensed social worker, anticipation of discharge based off physical therapy needs at least hopefully by Friday. Her blood pressures have been well controlled. OBJECTIVE: VITAL SIGNS: She remains afebrile, temperature 97.6, pulse 70, blood pressure 143/86, respirations 20, satting 97% on nasal cannula at rest. I 's and O's have been well balanced, weight is 80.9 kg. CHEST: Remains clear to auscultation. HEART: Regular rate and rhythm. ABDOMEN: Soft, non-tender. Positive bowel sounds. EXTREMITIES: No clubbing, cyanosis or edema. NEUROLOGIC : She is alert and oriented times three. No additional laboratory or radiographic studies are available. ASSESSMENT: 1. Recent acute care admission after having altered level of consciousness with confusion secondary to infectious process, including both right lower lobe pneumonia and a urinary tract infection having shown good clinical improvement with parenteral antibiotics and aggressive pulmonary hygiene. 2. Acute lower lobe pneumonia community acquired, improved after IV antibiotics and continuation of p.o. therapy on Swing Bed admission. 3. Bilateral conjunctivitis, resolved with completion of treatment with Gentamicin ointment. 4. History of hypertension. 5. History of recurrent urinary tract infections but no culture results prior to last Acute Care admission with the patient showing good response to antibiotic therapy. 6. Chronic obstructive pulmonary disease in a chronic smoker with exacerbation prior to discharge from Acute Care showing improvement of community acquired right lower lobe pneumonia. 7. Dementia with some exacerbation secondary to recent acute illness. 8. Significant deconditioning secondary to #1 requiring Swing Bed admission for rehabilitation and strengthening. PLAN: Will anticipate discharge this coming Friday. She finished her Omnicef duration of 7 days today as well as Azithromycin. She has been doing well. Will continue to follow her as she continues with her physical therapy efforts until discharge. Until then, continue to monitor and treat appropriately. #[id number] [facility]
[2017-04-28] MEDS: NYSTATIN POWDER 15GM BTTL TOP SCH (21:45)
[2017-04-28] MEDS: ZOLPIDEM TARTRATE 10 MG TAB PO SCH (22:03)
[2017-04-28] MEDS: FISH OIL 1,200 MG CAP PO SCH (22:03)
[2017-04-28] MEDS: LISINOPRIL 5 MG TAB PO SCH (22:03)
[2017-04-28] MEDS: ASPIRIN (ENTERIC COATED) 325 MG TAB PO SCH (22:03)
[2017-04-28] MEDS: SIMVASTATIN 10 MG TAB PO SCH (22:03)
[2017-04-28] MEDS: CALCIUM CARBONATE-VITAMIN D 500 MG TAB PO SCH (22:03)
[2017-04-28] MEDS: GABAPENTIN 300 MG CAP PO SCH (22:05)
[2017-04-28] MEDS: OXYBUTYNIN CL 5 MG TAB PO SCH (22:05)
[2017-04-29] MEDS: OMEPRAZOLE CAP 20 MG CAP PO SCH (06:00)
[2017-04-29] MEDS: METOPROLOL TARTRATE 50 MG TAB PO SCH ×2 (07:32→16:43)
[2017-04-29] MEDS: LEVALBUTEROL NEBS 1.25 MG/3 ML VIAL NEB SCH ×3 (09:00→20:31)
[2017-04-29] MEDS: NYSTATIN POWDER 15GM BTTL TOP SCH ×3 (09:13→13:12)
[2017-04-29] MEDS: BIFIDOBACTERIUM INFANTIS 4 MG CAP PO SCH ×2 (09:13→21:38)
[2017-04-29] MEDS: DOCUSATE SODIUM 100 MG CAP PO SCH (09:14)
[2017-04-29] MEDS: ENOXAPARIN SODIUM 40 MG/0.4 ML SYG SUBCU SCH (09:14)
[2017-04-29] MEDS: GABAPENTIN 300 MG CAP PO SCH (21:38)
[2017-04-29] MEDS: FISH OIL 1,200 MG CAP PO SCH (21:38)
[2017-04-29] MEDS: OXYBUTYNIN CL 5 MG TAB PO SCH (21:38)
[2017-04-29] MEDS: CALCIUM CARBONATE-VITAMIN D 500 MG TAB PO SCH (21:38)
[2017-04-29] MEDS: ZOLPIDEM TARTRATE 10 MG TAB PO SCH (21:38)
[2017-04-29] MEDS: LISINOPRIL 5 MG TAB PO SCH (21:38)
[2017-04-29] MEDS: SIMVASTATIN 10 MG TAB PO SCH (21:38)
[2017-04-29] MEDS: ASPIRIN (ENTERIC COATED) 325 MG TAB PO SCH (21:38)
[2017-04-30] MEDS: OMEPRAZOLE CAP 20 MG CAP PO SCH (05:37)
[2017-04-30] MEDS: ENOXAPARIN SODIUM 40 MG/0.4 ML SYG SUBCU SCH (07:52)
[2017-04-30] MEDS: DOCUSATE SODIUM 100 MG CAP PO SCH (07:52)
[2017-04-30] MEDS: METOPROLOL TARTRATE 50 MG TAB PO SCH ×2 (07:52→17:05)
[2017-04-30] MEDS: BIFIDOBACTERIUM INFANTIS 4 MG CAP PO SCH (07:52)
[2017-04-30] MEDS: LEVALBUTEROL NEBS 1.25 MG/3 ML VIAL NEB SCH ×2 (09:06→14:49)
[2017-04-30 11:23] VITALS: BP 160/83; TEMP 98
[2017-04-30 14:50] VITALS: O2SAT 97
--- NOTE | 2017-05-01 08:28 | DS ---
DISCHARGE DIAGNOSIS: 1. This 89-year-old, white female was admitted to the hospital initially to a Med/Surg bed because of significant associated right lower lobe pneumonia and urinary tract infection resulting in severe weakness and inability to safely return home. For this reason, she was placed in Swing Bed to assist with strengthening. 2. Acute lower lobe pneumonia, community acquired, improved after IV antibiotics and continuation of p.o. therapy on the initial few days of Swing Bed admission. 3. History of recurrent urinary tract infections with no culture positive results noted, yet the patient showing good response to antibiotic therapy initiated. 4. Bilateral conjunctivitis, improved with gentamicin administration. 5. History of hypertension. 6. Chronic obstructive pulmonary disease in a chronic smoker, showing improvement as treatment continued. 7. Dementia with some exacerbation secondary to recent acute illness, showing some improvement. 8. Significant deconditioning secondary to the combined pneumonia and urinary tract infections, requiring Swing Bed admission for rehabilitation and strengthening until she was safely able to return home. HISTORY OF PRESENT ILLNESS: This 89-year-old, white female was placed on Swing Bed rehabilitation status on 04/21/17 because of marked weakness and inability to safely care for herself at home where she lives with the help of her daughter. Rehabilitation was initiated and was able to get her stronger to the point she had improved confidence and abilities to care for herself with rehabilitation and strengthening to continue at home. She originally had a febrile illness and was diagnosed with significant community acquired pneumonia as well as urinary tract infection requiring parenteral therapy and treatment course continuing through portions of the Swing Bed status. Physical therapy continued with rehabilitation until she was able to reach a gaol of being able to more safely return home. LABORATORY: Urinalysis generally clean. Chemistries generally within normal limits. CBC also within normal limits during her Swing Bed stay. No cultures obtained. A chest x-ray was performed and it did show some persistence of the bibasilar changes suggesting subsegmental atelectasis with no other interval change with followup necessary. HOSPITAL COURSE: The patient was feeling much improved at the time of discharge and was able to ambulate with some assistance, but was able to do so with less fear of falling. PLAN: The patient is discharged home to have close followup with Dr. Porras in the clinic by the first of next week. She is to stay active with deep breathing. Special attention to avoid falls. Good nutrition, adequate fluid intake and return if not improving. #[id number] [facility]
== END 2017-04-30 17:40 | disposition home or self-care (01) | DRG 947 ==
LOC: MS 11:30
PROVIDERS: ADMIT Nurse Practitioner Family; ATTEND Emergency Medicine
DX: R53.1 Weakness (principal); J18.9 Pneumonia, unspecified organism; J44.0 Chronic obstructive pulmonary disease with (acute) lower respiratory infection; N39.0 Urinary tract infection, site not specified; I50.32 Chronic diastolic (congestive) heart failure; H10.9 Unspecified conjunctivitis; F03.90 Unspecified dementia, unspecified severity, without behavioral disturbance, psychotic disturbance, mood disturbance, and anxiety; R32 Unspecified urinary incontinence; I11.0 Hypertensive heart disease with heart failure; I25.10 Atherosclerotic heart disease of native coronary artery without angina pectoris; I71.4 Abdominal aortic aneurysm, without rupture; F17.210 Nicotine dependence, cigarettes, uncomplicated; Z95.0 Presence of cardiac pacemaker; Z88.1 Allergy status to other antibiotic agents

== ENCOUNTER 2017-05-03 15:57 | Emergency (ER) | payer MEDICARE ==
[2017-05-03] MEDS ORDERED: ALPRAZolam 0.25 MG TAB PO ONE (17:11)
[2017-05-03] MEDS ORDERED: METOPROLOL TARTRATE 50 MG TAB PO ONE (17:11)
[2017-05-03 18:12] VITALS: O2SAT 95
--- NOTE | 2017-05-03 18:55 | ED.PDOC ---
History of Present Illness - General Chief Complaint: Neuro Symptoms/Deficits Stated Complaint: elevated blood pressure Time Seen by Provider: 05/03/17 16:12 Source: patient, family Exam Limitations: no limitations - History of Present Illness Initial Comments: the patient is a 11-year-old female presenting to emergency room upon recommendations by home health. The patient has been home for approximately 5 or 6 days from extended hospital stay related to urinary tract infection and pneumonia. She has been having some difficulty getting around and family members have been helping her. They took her to the toilet this afternoon and noticed that when they sat her down for a period of time her right foot started turning a little bit blue. It was mildly painful. They got her back up and later down the color came back into her foot. Objective blood pressure medicine is a later down and it was in the 220s systolic and period they called EMS when EMS arrived systolic blood pressures were in the 180s. She was essentially asymptomatic from the blood pressure. No headache. No dizziness. No shortness of breath. Looking back at her hospital stay she frequently had systolic blood pressures in the 160s. No syncope or near-syncope. No chest pain. She is not having any new symptoms otherwise. She is not having any foot pain currently. Coloration and warmth of the right foot are symmetrical with the left and adequate. Timing/Duration: momentarily Severity: mild Improving Factors: nothing Worsening Factors: nothing Associated Symptoms: denies symptoms Allergies/Adverse Reactions: Allergies Levofloxacin [From Levaquin] Adverse Reaction (Verified 04/17/17 21:16) metals Allergy (Uncoded 03/29/16 14:14) Home Medications: Ambulatory Orders Aspirin [Aspirin EC] 81 mg PO BEDTIME 05/24/14 Calcium 600 mg PO BEDTIME 05/24/14 Lovastatin 20 mg PO BEDTIME 05/24/14 [place]-3 Fatty Acids [Fish Oil] 1 cap PO BEDTIME 05/24/14 Omeprazole 20 mg PO DAILY@0700 05/24/14 Oxybutynin Chloride [Oxybutynin Chloride ER] 10 mg PO BEDTIME 05/24/14 Gabapentin 600 mg PO BEDTIME 03/13/16 Lisinopril 5 mg PO BEDTIME 04/17/17 Zolpidem Tartrate [Ambien] 10 mg PO BEDTIME 04/22/17 Metoprolol Tartrate 50 mg PO BID 05/03/17 Review of Systems - Review of Systems Constitutional: States: no symptoms reported - no new EENTM: States: no symptoms reported Respiratory: States: no symptoms reported Cardiology: States: no symptoms reported Gastrointestinal/Abdominal: States: no symptoms reported Genitourinary: States: no symptoms reported Musculoskeletal: States: muscle pain Skin: States: see HPI Neurological: States: no symptoms reported Endocrine: States: no symptoms reported All other Systems: No Change from Baseline Past Medical History (General) - Patient Medical History Hx Seizures: No Hx Stroke: No Hx Dementia: No Hx Asthma: No Hx of COPD: Yes Hx Cardiac Disorders: Yes Hx Congestive Heart Failure: No Hx Pacemaker: Yes Hx Hypertension: Yes Hx Thyroid Disease: No Hx Diabetes: No Hx Gastroesophageal Reflux: No Hx Renal Disease: No Hx Cancer: No Hx of HIV: No Hx Hepatitis C: No Hx MRSA: No Surgical History: pacemaker, Hysterectomy - Vaccination History Hx Tetanus, Diphtheria Vaccination: No Hx Influenza Vaccination: No Hx Pneumococcal Vaccination: Yes - Social History Hx Tobacco Use: Yes Hx Chewing Tobacco Use: No Hx Alcohol Use: No Hx Substance Use: No Hx Substance Use Treatment: No Hx Depression: No Hx Physical Abuse: No Hx Emotional Abuse: No Hx Suspected Abuse: No - Female History Patient : No Family Medical History - Family History Mother Family History: Unknown Living Status: Hx Family Hypertension: Yes - parents Hx Cardiac Disease: Yes Hx Family Diabetes: Yes - parents Hx Family Cancer: Yes - mom-cancer /breast Physical Exam - Physical Exam General Appearance: Alert, Comfortable, No apparent distress - the patient is in no distress. She is talkative and cooperative and lughs at jokes.. Eye Exam: bilateral normal Ears, Nose, Throat: normal ENT inspection, normal pharynx, other - mild hearing loss bilaterally Neck: full range of motion, supple Respiratory: chest non-tender, lungs clear, normal breath sounds, no respiratory distress, no accessory muscle use Cardiovascular/Chest: no edema Peripheral Pulses: radial,right: 2+, radial,left: 2+, dorsalis pedis,right: 1+, dorsalis pedis,left: 1+, posterior tibialis,right: 1+, posterior tibialis,left: 1+ Gastrointestinal/Abdominal: non tender, soft Rectal Exam: deferred Back Exam: normal inspection Extremity: normal range of motion, non-tender, normal inspection, no pedal edema , normal capillary refill Neurologic: car inspector II-XII nml as tested, alert, normal mood/affect, oriented x 3 Skin Exam: normal color Comments: Vital Signs - 24 hr 05/03/17 05/03/17 05/03/17 16:20 17:00 18:11 Temperature 98.3 F Pulse Rate [ 70 70 70 Left Brachial] Respiratory 20 20 20 Rate Blood Pressure 193/97 199/106 185/109 [Left Arm] O2 Sat by Pulse 95 94 L 95 Oximetry last blood pressure obtained is a manual blood pressure secondary to difficulty with electronic monitor. Last blood pressure is 165/105. Progress - Progress Progress: 05/03/17 18:57 the patient's an 89-year-old female brought in secondary to hypertension and what appears to be transient ischemia of the right lower extremity. Blood pressures have returned to her baseline after an evening dose of her blood pressure medications. She is asymptomatic from the hypertension. The patient does appear to have some transient claudication or ischemia to the right lower extremity while sitting on the toilet. This most likely indicates some significant peripheral vascular disease in the right lower extremity around the level of the popliteal artery. The patient is not a good candidate for any vascular intervention. I would recommend that the family obtain a wide cushion toilet seat for the patient to use to help reduce pressure in that area. Additionally straightening the right leg while on the toilet may help reduce this problem. They need to obtain blood pressures on the patient a couple of times a day while she is at rest and record these. The left upper extremity does seem to record a significantly lower blood pressure than the right upper extremity. This is noted. The patient is largely asymptomatic at this time. She needs to follow-up with her primary care doctor next week. ER warnings were given. Departure - Departure Clinical Impression: Reactive hypertension, Claudication in peripheral vascular disease Disposition: Discharge to Home or Self Care Condition: Fair Departure Forms: ED Discharge - Pt. Copy, Patient Portal Self Enrollment Instructions: Intermittent Claudication (Alternative Therapy), High Blood Pressure Diet: regular diet Activity: increase activity as tolerated Referrals: Yonny Porras MD [Primary Care Provider] - 1-2 Weeks Home Medications: Ambulatory Orders Aspirin [Aspirin EC] 81 mg PO BEDTIME 05/24/14 Calcium 600 mg PO BEDTIME 05/24/14 Lovastatin 20 mg PO BEDTIME 05/24/14 Hob[place]-3 Fatty Acids [Fish Oil] 1 cap PO BEDTIME 05/24/14 Omeprazole 20 mg PO DAILY@0700 05/24/14 Oxybutynin Chloride [Oxybutynin Chloride ER] 10 mg PO BEDTIME 05/24/14 Gabapentin 600 mg PO BEDTIME 03/13/16 Lisinopril 5 mg PO BEDTIME 04/17/17 Zolpidem Tartrate [Ambien] 10 mg PO BEDTIME 04/22/17 Metoprolol Tartrate 50 mg PO BID 05/03/17 Additional Instructions: the patient's an 89-year-old female brought in secondary to hypertension and what appears to be transient ischemia of the right lower extremity. Blood pressures have returned to her baseline after an evening dose of her blood pressure medications. She is asymptomatic from the hypertension. The patient does appear to have some transient claudication or ischemia to the right lower extremity while sitting on the toilet. This most likely indicates some significant peripheral vascular disease in the right lower extremity around the level of the popliteal artery. The patient is not a good candidate for any vascular intervention. I would recommend that the family obtain a wide cushion toilet seat for the patient to use to help reduce pressure in that area. Additionally straightening the right leg while on the toilet may help reduce this problem. They need to obtain blood pressures on the patient a couple of times a day while she is at rest and record these. The left upper extremity does seem to record a significantly lower blood pressure than the right upper extremity. This is noted. The patient is largely asymptomatic at this time. She needs to follow-up with her primary care doctor next week. ER warnings were given.
[2017-05-03 19:29] VITALS: BP 184/105; TEMP 98.1
== END 2017-05-03 19:28 | disposition home or self-care (01) ==
LOC: ER 15:57
DX: I10 Essential (primary) hypertension (principal); I73.9 Peripheral vascular disease, unspecified; Z87.891 Personal history of nicotine dependence; Z95.0 Presence of cardiac pacemaker; Z79.82 Long term (current) use of aspirin; Z88.3 Allergy status to other anti-infective agents

== ENCOUNTER → 2017-06-02 | Outpatient (CLI) | payer MEDICARE | END | disposition home or self-care (01) | LOC: YCHH 15:03 | PROVIDERS: ATTEND Family Medicine | DX: R30.0 Dysuria (principal); R41.0 Disorientation, unspecified; R39.15 Urgency of urination ==

== ENCOUNTER → 2017-06-16 | Outpatient (CLI) | payer MEDICARE | END | disposition home or self-care (01) | LOC: YCHH 10:22 | PROVIDERS: ATTEND Family Medicine | DX: I25.10 Atherosclerotic heart disease of native coronary artery without angina pectoris (principal); D64.9 Anemia, unspecified; J44.9 Chronic obstructive pulmonary disease, unspecified; E03.9 Hypothyroidism, unspecified; E78.5 Hyperlipidemia, unspecified; N18.9 Chronic kidney disease, unspecified ==

== ENCOUNTER → 2017-07-14 | Outpatient (CLI) | payer MEDICARE | END | disposition home or self-care (01) | LOC: YCHH 13:45 | PROVIDERS: ATTEND Family Medicine | DX: N39.0 Urinary tract infection, site not specified (principal) ==

== ENCOUNTER 2017-09-08 16:26 | Inpatient (IN) | payer MEDICARE ==
[2017-09-08] MEDS ORDERED: cloNIDine HCL 0.1 MG TAB PO ONE (18:04)
--- NOTE | 2017-09-08 18:08 | ED.PDOC ---
History of Present Illness - General Chief Complaint: Blood Pressure Problem Stated Complaint: Elevated BP Time Seen by Provider: 09/08/17 18:04 Source: patient, family Exam Limitations: no limitations Additional Information: PT WAS SEEN BY NURSE WHO NOTED HER BP WAS ELEVATED. WENT TO PCP WHO SENT HER HERE FOR EVALUATION. - History of Present Illness Timing/Duration: unsure Severity: moderate Improving Factors: nothing Worsening Factors: nothing Associated Symptoms: denies symptoms Allergies/Adverse Reactions: Allergies Levofloxacin [From Levaquin] Adverse Reaction (Verified 04/17/17 21:16) metals Allergy (Uncoded 03/29/16 14:14) Home Medications: Ambulatory Orders Aspirin [Aspirin EC] 81 mg PO BEDTIME 05/24/14 Calcium 600 mg PO BEDTIME 05/24/14 Lovastatin 20 mg PO BEDTIME 05/24/14 [place]-3 Fatty Acids [Fish Oil] 1 cap PO BEDTIME 05/24/14 Omeprazole 20 mg PO DAILY@0700 05/24/14 Oxybutynin Chloride [Oxybutynin Chloride ER] 10 mg PO BEDTIME 05/24/14 Gabapentin 600 mg PO BEDTIME 03/13/16 Lisinopril 5 mg PO BEDTIME 04/17/17 Zolpidem Tartrate [Ambien] 10 mg PO BEDTIME 04/22/17 Metoprolol Tartrate 50 mg PO BID 05/03/17 Review of Systems - Review of Systems Constitutional: Denies: chills, fever EENTM: Denies: blurred vision, double vision Respiratory: Denies: short of breath Cardiology: Denies: chest pain Gastrointestinal/Abdominal: Denies: nausea, vomiting Genitourinary: States: no symptoms reported Musculoskeletal: States: no symptoms reported Skin: States: no symptoms reported Neurological: Denies: headache Endocrine: States: no symptoms reported Hematologic/Lymphatic: States: no symptoms reported Past Medical History (General) - Patient Medical History Hx Seizures: No Hx Stroke: No Hx Dementia: No Hx Asthma: No Hx of COPD: Yes Hx Cardiac Disorders: Yes - hypercholesterolemia Hx Congestive Heart Failure: No Hx Pacemaker: Yes Hx Hypertension: Yes Hx Thyroid Disease: No Hx Diabetes: No Hx Gastroesophageal Reflux: Yes Hx Renal Disease: No Hx Cancer: No Hx of HIV: No Hx Hepatitis C: No Hx MRSA: No Surgical History: pacemaker, Hysterectomy - Vaccination History Hx Tetanus, Diphtheria Vaccination: No Hx Influenza Vaccination: Yes - 2017 Hx Pneumococcal Vaccination: Yes - 2016 - Social History Hx Tobacco Use: Yes Hx Chewing Tobacco Use: No Hx Alcohol Use: No Hx Substance Use: No Hx Substance Use Treatment: No Hx Depression: No Hx Physical Abuse: No Hx Emotional Abuse: No Hx Suspected Abuse: No - Female History Patient : No Family Medical History - Family History Mother Family History: Unknown Living Status: Hx Family Hypertension: Yes - parents Hx Cardiac Disease: Yes Hx Family Diabetes: Yes - parents Hx Family Cancer: Yes - mom-cancer /breast Physical Exam - Physical Exam General Appearance: No apparent distress, Well Developed, Well Nourished Eye Exam: bilateral normal Ears, Nose, Throat: hearing grossly normal, normal ENT inspection Neck: non-tender, full range of motion, supple Respiratory: lungs clear, normal breath sounds, no respiratory distress Cardiovascular/Chest: regular rate, rhythm, no murmur Gastrointestinal/Abdominal: non tender, soft, no organomegaly Back Exam: normal inspection, no CVA tenderness Extremity: normal range of motion, normal inspection Neurologic: no motor/sensory deficits, alert, normal mood/affect Skin Exam: normal color Lymphatic: no adenopathy Progress - Progress Progress: 09/08/17 20:14 HAS CONTINUED TO REMAIN HYPERTENSIVE DESPITE CLONIDINE, WILL GIVE TRANDATE AND ADMIT. Departure - Departure Clinical Impression: Hypertensive urgency Hypertension Qualifiers: Hypertension type: essential hypertension Qualified Code(s): I10 - Essential ( primary) hypertension Time of Disposition: 20:16 - D/W LUIS FELIPE DAVILA, WILL ADMIT Disposition: Admit Patient Condition: Fair Departure Forms: ED Discharge - Pt. Copy, Patient Portal Self Enrollment Instructions: DI for High Blood Pressure Referrals: Yonny Porras MD [Primary Care Provider] - 1-2 Weeks Home Medications: Ambulatory Orders Aspirin [Aspirin EC] 81 mg PO BEDTIME 05/24/14 Calcium 600 mg PO BEDTIME 05/24/14 Lovastatin 20 mg PO BEDTIME 05/24/14 [place]-3 Fatty Acids [Fish Oil] 1 cap PO BEDTIME 05/24/14 Omeprazole 20 mg PO DAILY@0700 05/24/14 Oxybutynin Chloride [Oxybutynin Chloride ER] 10 mg PO BEDTIME 05/24/14 Gabapentin 600 mg PO BEDTIME 03/13/16 Lisinopril 5 mg PO BEDTIME 04/17/17 Zolpidem Tartrate [Ambien] 10 mg PO BEDTIME 04/22/17 Metoprolol Tartrate 50 mg PO BID 05/03/17
[2017-09-08] MEDS ORDERED: LABETALOL INJ 5 MG/ML VIAL IV ONE (19:51)
[2017-09-08] MEDS ORDERED: NON-FORMULARY MEDICATION 1 EA MIS (Oxybutynin Chloride [Oxybutynin Chloride Er] 10 MG) PO SCH (21:00)
[2017-09-08] MEDS ORDERED: OXYBUTYNIN CL 5 MG TAB PO SCH (21:00)
[2017-09-08] MEDS ORDERED: ZOLPIDEM TARTRATE 10 MG TAB PO SCH (21:00)
--- NOTE | 2017-09-08 21:03 | HP ---
SUPERVISING PHYSICIAN: Yonny Porras MD CHIEF COMPLAINT: Elevated blood pressure. HISTORY OF PRESENT ILLNESS: Ms. Vogt is an 89-year-old, female patient of Dr. Porras'. She was seen by home health nurse on date of admission earlier in the day and it was noted her blood pressure was significantly elevated. She was then sent to [facility] to be seen for further evaluation, but on further assessment it was again noted her blood pressure was significantly elevated at which time she was sent to the Emergency Room for further evaluation. Her initial blood pressure in the Emergency Room was 189/122. Heart rate 70. She was without any significant complaints, no chest pain, no dizziness, no blurred vision, essentially asymptomatic. Her blood pressure shortly after admission to the Emergency Room did increase to 227 /118 and she remained asymptomatic. She was given clonidine initially, 0.2 mg, which provided little assistance in normalizing her blood pressure. Her blood pressure after administration was reported to go down to 156/108. She continued to be hypertensive with further observation. Her laboratory studies showed essentially a normal CBC with white count 9,000. Chemistries just showed a mildly low potassium at 3.1. Otherwise, electrolytes, BUN, creatinine and liver functions were all within normal limits. Urinalysis did show trace blood on dipstick with moderate leukocyte esterase. Microscopic showed 0 to 1 RBCs with 20 to 30 WBCs, 1 to 3 epithelials and 1+ bacteria. After an amount of time with no success with clonidine, the patient was given IV labetalol 10 mg which did result in a significant decrease in her blood pressure to 179/94. She was never in any distress. She never had any chest pains, shortness of breath or other associated symptoms. Dr. Longoria, Emergency Room physician, requested the patient be placed in observation given the difficulty of controlling her blood pressure with hypertensive urgency and initiation of IV medications for further blood pressure control in efforts to help manage the blood pressure with change in medication regimen and close observation. On examination on the Medical/Surgical Floor, the patient was without any significant complaints, but she did note that she had been exposed to a relative that lives with her that had been diagnosed with the flu today. She had no symptoms of upper respiratory problems. She is a chronic smoker. The patient now is going to be placed in observation for further management of the hypertensive urgency. She was placed in observation stable condition. PAST MEDICAL HISTORY: 1. Recurring urinary tract infections. 2. Hypertension. 3. Chronic obstructive pulmonary disease in a chronic smoker. 4. History of bradycardia with history of pacemaker placement. 5. Urinary incontinence with recurring urinary tract infections. 6. History of coronary artery stenosis. 7. History of congestive heart failure with diastolic dysfunction component with no recent echocardiogram to review at time of admission. 8. History of coronary artery disease. 9. Abdominal aortic aneurysm that measures 4.3 cm in 2009, followed by Dr. Porras. 10. History of diverticulosis. 11. History of back pain with degenerative disc disease. PAST SURGICAL HISTORY: 1. Hysterectomy. 2. Pacemaker placement. CURRENT MEDICATIONS: 1. Ambien 10 mg at bedtime. 2. Oxybutynin chloride Extended Release 10 mg at bedtime. 3. Omeprazole 20 mg daily. 4. [place] fatty fish oil 1 capsule at bedtime. 5. Metoprolol tartrate 50 mg b.i.d. 6. Lovastatin 20 mg at bedtime. 7. Lisinopril 5 mg at bedtime. 8. Gabapentin 600 mg at bedtime. 9. Calcium 600 mg at bedtime. 10. Aspirin enteric coated 81 mg at bedtime. ALLERGIES: LEVOFLOXACIN, METALS. FAMILY HISTORY: Positive for cancer, diabetes mellitus, hypertension. 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 She does continue to smoke and has done so for over 60 years and does not wish to stop at this time according to the patient. She does live at home with her daughter and other relatives. REVIEW OF SYSTEMS: CONSTITUTIONAL: Denies any fevers, chills. HEENT: Denies blurred vision, double vision, headaches, nasal congestion, sore throat, earaches. RESPIRATORY: Denies shortness of breath, wheezing, cough, congestion. CARDIOVASCULAR: Denies chest pain or palpitations, syncopal episodes or any exertional dyspnea. GASTROINTESTINAL: Denies nausea or vomiting, diarrhea, constipation or other bowel habit changes. GENITOURINARY: Denies dysuria, hematuria, polyuria or other urinary symptoms, but does have a history of frequent urinary tract infection and being incontinent. NEUROLOGIC: Denies headaches, dizziness, syncope, presyncopal episodes or other neurologic deficits. PHYSICAL EXAMINATION: VITAL SIGNS: Initially in the edema, blood pressure 189/122 up to maximum of 227 /118 with heart rate 74. Saturation 94% on room air. Respirations 20. Afebrile at 96.8. After clonidine and labetalol IV and after admission to the Medical/Surgical Floor, blood pressure was 179/94. Heart rate continued to be 64 to 70 and saturation 94% with no obvious distress. Admission weight was 74.5 kg. GENERAL: On examination on the Medical/Surgical Floor, the patient is resting and appears to be in no acute distress, comfortable, well-hydrated, alert and well-nourished. HEENT: Tympanic membranes clear bilaterally. Oropharynx is pink, notably dry with cracked lips. No lesions. NECK: Supple, nontender with full range of motion. CHEST: Lungs clear to auscultation bilaterally without any rhonchi, wheezes, or rales. CARDIOVASCULAR: Regular rate and rhythm without any appreciable murmurs, gallops, or rubs. ABDOMEN: Soft, nontender. Positive bowel sounds. EXTREMITIES: There is no cyanosis, clubbing or edema. NEUROLOGIC: The patient is alert and oriented times three. Cranial nerves II- XII are grossly intact. Facial features are symmetrical. Extraocular movements are within normal limits. There is no nystagmus noted. LABORATORY: Essentially normal CBC with white count 9,000, hemoglobin 13.9, hematocrit 42.2, platelet count 239,000, differential without a left shift. Chemistries showed just a mildly low potassium at 3.1, otherwise electrolytes within normal limits. BUN 12, creatinine 1.07, glucose 104, calcium 9.6. Liver functions all within normal limits. Urinalysis on dipstick showed trace lysed blood with moderate leukocyte esterase. Microscopic showed 0 to 1 RBCs with 20 to 30 WBCs, epithelials 1 to 3 with renal epithelial cells 3 to 5 and 1 + bacteria. MICROBIOLOGY: Urine culture pending. RADIOLOGY: Two view chest x-ray on admission to the Medical/Surgical Floor per radiologic interpretation showed no acute cardiopulmonary process. ASSESSMENT: 1. Hypertensive urgency requiring IV labetalol for initial control of blood pressure and ongoing further medical management to control blood pressure with the patient being asymptomatic with no complaints of chest pain or shortness of breath. 2. Urinary tract infection with history of multiple urinary tract infections with culture pending and the patient initiated on empiric therapy with Rocephin. 3. Mild electrolyte imbalance with hypokalemia. 4. History of congestive heart failure with diastolic dysfunction component with no recent echocardiogram for review at time of admission. 5. Chronic obstructive pulmonary disease in a chronic smoker with no signs of exacerbation, but recent exposure to influenza within the last 24 to 48 hours. 6. History of bradycardia requiring pacemaker placement. 7. Significant history of coronary artery disease with coronary artery stenosis. 8. History of abdominal aortic aneurysm that measured 4.3 cm in 2008, followed by Dr. Porras, her primary care provider. 9. History of diverticulosis. 10. History of chronic back pain with degenerative disc disease. 11. Chronic tobacco abuse with nicotine addiction, encouraged to stop smoking. PLAN: The patient will be placed in observation tonight after her blood pressure was better controlled with IV Labetalol. I started her on 0.1 mg clonidine b.i.d. as well as increased her lisinopril from 5 mg to 10 mg at bedtime after consulting with Dr. Porras, her primary care provider. We will continue to monitor her on cardiac telemetry. I will start her on some IV fluids half normal saline with 20 of potassium to run at 80 an hour in efforts to treat her mild dehydration and hypokalemia. I have started her on Tamiflu prophylactically 75 mg daily due to the exposure from family members within the last 24 to 48 hours. We will anticipate her length of stay to be 1 to 2 days, but hopefully being able to discharge later tomorrow if showing to be clinically stable on current medication regimen. She is on a beta juancarlos 50 mg b.i.d. This will be continued as is with close monitoring. Once the patient is clinically stable in regard to her blood pressure management, certainly we can discharge to have close clinical followup with Dr. Porras, her primary care provider. Until then, we will continue to monitor the patient closely and treat appropriately. #[id number] [facility]
[2017-09-08] MEDS ORDERED: SODIUM CHLORIDE 0.9% (FLUSH) 10 ML SYG IV PRN (21:12)
[2017-09-08] MEDS ORDERED: LISINOPRIL 10 MG TAB PO ONE (21:32)
[2017-09-08] MEDS ORDERED: SODIUM CHL 0.9% 50ML MIN-BAG+ 50 ML IVPB ONE (21:56)
[2017-09-08] MEDS ORDERED: cefTRIAXone SODIUM 1 GM VIAL ONE (21:56)
[2017-09-08] MEDS: cefTRIAXone SODIUM 1 GM in SODIUM CHL 0.9% 50ML MIN-BAG+ 50 ML IVPB SCH (21:57)
[2017-09-08] MEDS: IV SET AND CAP CHANGE INJ INJ SCH (21:58)
[2017-09-08] MEDS: cloNIDine HCL 0.1 MG TAB PO SCH (21:58)
[2017-09-08] MEDS ORDERED: NICOTINE PATCH 14 MG TD SCH (22:00)
--- NOTE | 2017-09-08 22:31 | PCM.CORE ---
Physician DVT/VTE - Nurse DVT Assessment & Total Each Risk Factor Represents 3 Points: Age over 75 years, Medical PT with Hx of PA, CHF, Severe infection/sepsis Each Risk Factor Represents 1 Point: Hx of smoking past year Each Risk Factor is 1 Point: Obesity (BMI >25), Serious Lung disease (pnemonia < 1month, COPD, emphysema,etc) DVT Assessment Score: 9 - 5 or more Very High Risk Treatments: Early Ambulation *, Sequential Compression Device Pharmacological: Enoxaparin 40mg SQ Daily
[2017-09-08] MEDS ORDERED: OSELTAMIVIR 75 MG CAP ONE (22:46)
[2017-09-08] MEDS: KCL 20MEQ/0.45% NS 1,000 ML IVS PRN (22:49)
[2017-09-08] MEDS: GABAPENTIN 300 MG CAP PO SCH (22:49)
[2017-09-08] MEDS ORDERED: ENOXAPARIN SODIUM 40 MG/0.4 ML SYG SUBCU SCH (23:00)
[2017-09-08] MEDS ORDERED: METOPROLOL TARTRATE 50 MG TAB PO SCH (23:00)
--- NOTE | 2017-09-08 23:06 | RAD ---
EXAM: Two view chest. INDICATION: Hypertension. COMPARISON: Chest x-ray: 04/22/2017. FINDINGS: Cardiac silhouette: At the upper limit of normal in size with a tortuous aorta and a left chest wall pacemaker in place. Sandrine: Unremarkable. Lobar consolidation: None. Pleural effusion: None. Pneumothorax: None. Other: None. Bones: Demineralized. There is a mild chronic anterior wedge compression deformity of the thoracolumbar spine. Other: None. IMPRESSION: 1. No acute cardiopulmonary process. Electronically signed by: Vinod Delgado MD 09/08/2017 11:05 PM [facility] Workstation: [id number]
[2017-09-09] MEDS ORDERED: OMEPRAZOLE CAP 20 MG CAP ONE ×2 (06:06→20:03)
[2017-09-09] MEDS ORDERED: cloNIDine HCL 0.1 MG TAB PO ONE (06:24)
[2017-09-09] MEDS ORDERED: NON-FORMULARY MEDICATION 1 EA MIS (Omeprazole [Omeprazole] 20 MG) PO SCH (07:00)
[2017-09-09] MEDS ORDERED: SODIUM CHL 0.9% 50ML MIN-BAG+ 50 ML IVPB ONE ×2 (08:35→20:03)
[2017-09-09] MEDS ORDERED: METOPROLOL TARTRATE 25 MG TAB ONE (08:35)
[2017-09-09] MEDS ORDERED: cefTRIAXone SODIUM 1 GM VIAL ONE ×2 (08:35→20:03)
[2017-09-09] MEDS ORDERED: OSELTAMIVIR 75 MG CAP ONE (08:36)
[2017-09-09] MEDS: cloNIDine HCL 0.1 MG TAB PO SCH ×2 (08:46→20:56)
[2017-09-09] MEDS: OSELTAMIVIR 75 MG CAP PO SCH (08:46)
[2017-09-09] MEDS: POTASSIUM CHLORIDE 10 MEQ TAB PO ONE ×2 (08:47→09:17)
[2017-09-09] MEDS ORDERED: METOPROLOL TARTRATE 50 MG TAB ONE (08:49)
[2017-09-09] MEDS: METOPROLOL TARTRATE 50 MG TAB PO SCH ×2 (08:51→17:23)
[2017-09-09] MEDS: cefTRIAXone SODIUM 1 GM in SODIUM CHL 0.9% 50ML MIN-BAG+ 50 ML IVPB SCH ×2 (09:20→21:03)
[2017-09-09] MEDS ORDERED: POTASSIUM CHLORIDE ELIXIR 20 MEQ/15 ML UD PO ONE (09:30)
[2017-09-09] MEDS ORDERED: LISINOPRIL 10 MG TAB PO SCH (10:00)
[2017-09-09] MEDS ORDERED: KCL 20MEQ/WATER FOR INJ 100ML 20 MEQ in PREMIX BAG 1 BAG IVPB ONE (11:46)
[2017-09-09] MEDS ORDERED: KCL 20MEQ/WATER FOR INJ 100ML 100 ML IVPB ONE (11:52)
[2017-09-09] MEDS ORDERED: predniSONE 20 MG TAB ONE (12:29)
[2017-09-09] MEDS: KCL 20MEQ/0.45% NS 1,000 ML IVS PRN (12:34)
[2017-09-09] MEDS ORDERED: cloNIDine HCL 0.1 MG TAB PO PRN (12:49)
--- NOTE | 2017-09-09 13:36 | PN ---
DATE: 09/09/17 SUBJECTIVE: The patient was admitted last evening with significant hypertensive episodes as well as worsening hypokalemia and evidence of an early urinary tract infection. She was noticing symptoms of altered level of consciousness with increased confusion as well as weakness and severe hypertension, possible contributing to all of her above symptoms. She has required introduction to new higher level of blood pressure medicine to assist with the control. Appetite is fair. She seems to be a little less distress today and a little more alert. She stays at home with her daughter caring for her. Of note, the daughter's is at home with nausea, vomiting and diarrhea and diagnosis of a GI "flu". He was not started on any Tamiflu. OBJECTIVE: VITAL SIGNS: Afebrile. Pulse 79. Pulse oximetry 91% on room air. Weight 74.5 kg with a bed scale. LUNGS: Some rhonchi bilaterally. No wheezing. HEART: Tones are somewhat distant. ABDOMEN: Obese, yet soft. Blood pressure was very elevated earlier today at 200/98 and is coming down with increased treatment being provided. LABORATORY: Chemistry shows potassium has dropped from 3.1 yesterday to 2.7. Kidney function is normal. Glucose 116. Troponin 0.03. Beta natriuretic peptide is 710 with most recent BNP 559 in June of 2017. Urine growth shows no growth at 24 hours, but it has only been about 12 hours since its collection. ASSESSMENT: 1. Hypertensive urgency requiring IV labetalol in the Emergency Room as well as augmentation with increased home medications for blood pressure control with moderate confusion and increased weakness evident, requiring close observation and adjustment of her home medicines to assist. 2. Possible urinary tract infection with pyuria and bacteruria on the urinalysis, currently being treated with Rocephin with urine culture pending. 3. Hypokalemia, worsening, requiring increased diuresis with potassium 2.7 this morning. 4. History of congestive heart failure with diastolic dysfunction component with no recent echocardiogram for review at this time. 5. Chronic obstructive pulmonary disease in a chronic smoker with no signs of acute exacerbation. 6. History of bradycardia requiring pacemaker placement. 7. History of coronary artery disease with coronary artery stenosis in the past. 8. History of abdominal aortic aneurysm that measured 4.3 cm in 2008, followed by Dr. Yonny Porras, her primary care provider. 9. History of diverticulosis. 10. History of chronic back pain with degenerative disc disease. 11. History of chronic tobacco abuse with nicotine addiction, encouraged to stop smoking. PLAN: We will check renal artery ultrasound today for renovascular component for etiology of the hypertensive urgency. Increase lisinopril from 5 to 20 mg a day. Continue with metoprolol 50 mg twice daily. Physical therapy to evaluate for safety of ambulation and strengthening as well as transfer capabilities. Increase potassium supplementation. Check troponin and EKG today to evaluate for further symptomatic evidences of the significant hypokalemia. Reevaluate and continue treatment course. #[id number] [facility]
--- NOTE | 2017-09-09 13:48 | US ---
EXAM DESCRIPTION: Renal Arteries: Ultrasound. CLINICAL HISTORY: severe hypertension COMPARISON: CT pelvis 04/20/2017. TECHNIQUE: Transcutaneous scanning: Two-dimensional modes. Doppler systolic and diastolic measurements of the abdominal aorta, renal arteries, intra renal arteries, and renal veins. Technically difficult study due to patient mental status and difficulty visualizing renal arterial system. FINDINGS: Kidneys are not well visualized. Cortical thinning and increased echogenicity. Distal ureters not visualized bilaterally. Urinary bladder was not visualized. Vessel diameter (cm): Aorta-Mid: 6 cm AP measurement of abdominal aneurysm. PSV (cm/sec): Aorta: 21.4 mid segment. Right renal artery: 68.9 mid segment Left renal artery: Not visualized. EDV (cm/sec): Right renal artery: 10.4 mid segment. Left renal artery: Not visualized. Renal veins: Not visualized. IVC: Not visualized. Intrarenal RI's: Could not be determined. IMPRESSION: 1. Severe limitations of the study as noted. Limited visualization of the bilateral kidneys. No measurements could not be obtained of the left renal arterial system. Limited measurements of the right renal arterial system. 2. 6 cm mid abdominal aortic aneurysm. 5.9 cm distal abdominal aortic aneurysm seen on pelvic CT scan in April 2017. Electronically signed by: Omar Stone MD 09/09/2017 1:47 PM [employer]
[2017-09-09] MEDS: cloNIDine HCL 0.1 MG TAB PO PRN ×2 (15:21→21:51)
[2017-09-09] MEDS ORDERED: TEMAZEPAM 15 MG CAP PO PRN (19:38)
[2017-09-09] MEDS: ENOXAPARIN SODIUM 40 MG/0.4 ML SYG SUBCU SCH (20:56)
[2017-09-09] MEDS: SIMVASTATIN 10 MG TAB PO SCH (20:56)
[2017-09-09] MEDS: GABAPENTIN 300 MG CAP PO SCH (20:56)
[2017-09-09] MEDS: CALCIUM CARBONATE-VITAMIN D 500 MG TAB PO SCH (20:56)
[2017-09-09] MEDS: TEMAZEPAM 15 MG CAP PO SCH (20:56)
[2017-09-09] MEDS: ASPIRIN EC 81 MG TAB PO SCH (20:56)
[2017-09-09] MEDS: TOLTERODINE TARTRATE ER 4 MG CAP PO SCH (20:56)
[2017-09-09] MEDS: NICOTINE PATCH 14 MG TD SCH (20:56)
[2017-09-09] MEDS ORDERED: NON-FORMULARY MEDICATION 1 EA MIS (Lovastatin [Lovastatin] 20 MG) PO SCH (21:00)
[2017-09-09] MEDS ORDERED: OSELTAMIVIR 75 MG CAP PO SCH (22:30)
[2017-09-09] MEDS: SPIRONOLACTONE 25 MG TAB PO SCH (22:40)
[2017-09-09] MEDS: CHLORTHALIDONE 25 MG TAB PO SCH (22:40)
[2017-09-10] MEDS: KCL 20MEQ/0.45% NS 1,000 ML IVS PRN ×2 (01:56→16:11)
[2017-09-10] MEDS: cloNIDine HCL 0.1 MG TAB PO PRN ×3 (02:09→12:46)
[2017-09-10] MEDS: OMEPRAZOLE CAP 20 MG CAP PO SCH (06:20)
[2017-09-10] MEDS ORDERED: SODIUM CHL 0.9% 50ML MIN-BAG+ 50 ML IVPB ONE ×2 (08:20→20:50)
[2017-09-10] MEDS ORDERED: cefTRIAXone SODIUM 1 GM VIAL ONE ×2 (08:20→20:52)
[2017-09-10] MEDS: METOPROLOL TARTRATE 50 MG TAB PO SCH ×2 (08:23→17:00)
[2017-09-10] MEDS ORDERED: POTASSIUM CHLORIDE 10 MEQ TAB PO ONE (08:31)
[2017-09-10] MEDS: cefTRIAXone SODIUM 1 GM in SODIUM CHL 0.9% 50ML MIN-BAG+ 50 ML IVPB SCH ×2 (09:11→21:39)
[2017-09-10] MEDS: LISINOPRIL 10 MG TAB PO SCH (09:12)
[2017-09-10] MEDS: SPIRONOLACTONE 25 MG TAB PO SCH (09:12)
[2017-09-10] MEDS: cloNIDine HCL 0.1 MG TAB PO SCH ×2 (09:12→21:30)
[2017-09-10] MEDS: CHLORTHALIDONE 25 MG TAB PO SCH (09:12)
[2017-09-10] MEDS: OSELTAMIVIR 75 MG CAP PO SCH (09:12)
[2017-09-10] MEDS ORDERED: amLODIPine BESYLATE 5 MG TAB PO ONE ×2 (12:00→14:14)
--- NOTE | 2017-09-10 13:56 | PN ---
DATE: 09/10/17 SUBJECTIVE: Today is the second day of hospital stay. She has had significant hypertension with an underlying increased risk of significant morbidity and mortality with an enlarging abdominal aortic aneurysm. She has been on various medications at home, yet in the hospital now she is requiring increasing doses of medications with new families of medicines being introduced in an effort to help control a fairly significant hypertensive crisis on behalf of the patient. Review of the old chart has shown variability in the measurement of the abdominal aortic aneurysm. In 2011, it was listed as 4.4. In 2012, at 5.3. In 2013, it was 3.6. In April of 2017, it was 4.8 cm. On study on this admission yesterday, it revealed a 6 cm abdominal aortic aneurysmal dilation. Her appetite is still poor, though she is able to eat. Last evening, her blood pressure was quite high and she became quite anxious, requiring some antianxiety medications to allow her to rest and thereby help to reduce some of the significant hypertensive response. Chlorthalidone and spironolactone were introduced last evening to assist with the ongoing blood pressure management and these are in addition to the metoprolol tartrate 50 mg b.i.d. and lisinopril which had been increased from to 5 to 10 mg. She is also on clonidine 0.1 mg b.i.d. as well as p.r.n. OBJECTIVE: VITAL SIGNS: Afebrile. Pulse 70. Blood pressure has been elevated last evening at 205/133 at 2 in the morning. This morning at 6 AM, it was 183/88 and then at 10 AM, it was 180/108. Pulse oximetry 92% on nasal cannula. Her weight has come down a little bit even though it looks like she has received more fluid in than is coming out. Variations in weight are noted. LUNGS: Relatively clear. HEART: Regular. ABDOMEN: Slightly obese, yet soft. LABORATORY: White count 7,300, hemoglobin 13.4. Chemistries show potassium up from 2.7 yesterday to 3.5 with supplementation. BUN 9, creatinine 0.67, which are normal. Calcium 9.5. BNP 710. Urine culture showed contaminated specimen. ASSESSMENT: 1. Hypertensive crisis requiring significant and daily alteration in her medication treatment program in an effort to assist in adding some degree of control to the significant hypertension noted. Please refer to notes above for the additional medications being added. 2. Possible urinary tract infection with pyuria and bacteruria, yet appeared to be a contaminated specimen. 3. Hypokalemia, showing some improvement from 2.7 up to 3.5 today. 4. History of congestive heart failure with diastolic dysfunction component with no recent echocardiogram for review. 5. Chronic obstructive pulmonary disease in a chronic smoker with no evidence of acute exacerbation. 6. History of bradycardia requiring pacemaker placement. 7. History of coronary artery disease with coronary artery stenosis in the past. 8. History of abdominal aortic aneurysm measuring 4.8 cm in April of 2017 and repeat exam yesterday revealing 6 cm distention. This is being followed by Dr. Eliceo Porras as well as Dr. Chester, customer service security officer. 9. History of diverticulosis. 10. History of chronic back pain with degenerative disc disease. 11. History of chronic tobacco abuse with nicotine addiction, encouraged to stop completely. PLAN: To her current hypertensive treatment program is added Norvasc 5 mg one dose this morning and then to be continued 5 mg at bedtime. Her blood pressure is going to require improved control, but hopefully by tomorrow morning she will be able to continue with outpatient observation and continued management with Dr. Porras in the clinic. Continue close followup because of the dilation and enlargement of the abdominal aortic aneurysm. Discussed with the family. #[id number] [facility]
[2017-09-10] MEDS ORDERED: cloNIDine HCL 0.1 MG TAB ONE (15:10)
[2017-09-10] MEDS ORDERED: cloNIDine HCL 0.1 MG TAB PO ONE (15:11)
[2017-09-10] MEDS ORDERED: MAGNESIUM HYDROXIDE 30 ML UD PO ONE (18:27)
[2017-09-10] MEDS: ASPIRIN EC 81 MG TAB PO SCH (21:29)
[2017-09-10] MEDS: SIMVASTATIN 10 MG TAB PO SCH (21:29)
[2017-09-10] MEDS: amLODIPine BESYLATE 5 MG TAB PO SCH (21:29)
[2017-09-10] MEDS: CALCIUM CARBONATE-VITAMIN D 500 MG TAB PO SCH (21:29)
[2017-09-10] MEDS: TOLTERODINE TARTRATE ER 4 MG CAP PO SCH (21:30)
[2017-09-10] MEDS: GABAPENTIN 300 MG CAP PO SCH (21:30)
[2017-09-10] MEDS: NICOTINE PATCH 14 MG TD SCH (21:31)
[2017-09-10] MEDS: ENOXAPARIN SODIUM 40 MG/0.4 ML SYG SUBCU SCH (21:31)
[2017-09-10] MEDS: TEMAZEPAM 15 MG CAP PO SCH (21:39)
[2017-09-11] MEDS: KCL 20MEQ/0.45% NS 1,000 ML IVS PRN (04:18)
[2017-09-11] MEDS: OMEPRAZOLE CAP 20 MG CAP PO SCH (06:28)
[2017-09-11] MEDS: METOPROLOL TARTRATE 50 MG TAB PO SCH ×2 (07:54→16:16)
[2017-09-11] MEDS ORDERED: SODIUM CHL 0.9% 50ML MIN-BAG+ 50 ML IVPB ONE ×2 (08:54→19:12)
[2017-09-11] MEDS ORDERED: cefTRIAXone SODIUM 1 GM VIAL ONE ×2 (08:55→19:14)
[2017-09-11] MEDS: OSELTAMIVIR 75 MG CAP PO SCH (10:09)
[2017-09-11] MEDS: CHLORTHALIDONE 25 MG TAB PO SCH (10:09)
[2017-09-11] MEDS: cloNIDine HCL 0.1 MG TAB PO SCH ×2 (10:10→20:27)
[2017-09-11] MEDS: SPIRONOLACTONE 25 MG TAB PO SCH (10:10)
[2017-09-11] MEDS: LISINOPRIL 10 MG TAB PO SCH (10:11)
[2017-09-11] MEDS: cefTRIAXone SODIUM 1 GM in SODIUM CHL 0.9% 50ML MIN-BAG+ 50 ML IVPB SCH ×2 (10:16→21:22)
--- NOTE | 2017-09-11 14:02 | PN ---
SUPERVISING PHYSICIAN: Yonny Porras MD DATE: 09/11/17 SUBJECTIVE: The patient is sitting in bed. Daughter is at bedside. The patient has no complaints of shortness of breath, nausea, vomiting, diarrhea, constipation or chest pain. The daughter complains that the patient is not eating or drinking very well because she falls asleep. We discussed her enlarging abdominal aortic aneurysm and that the blood pressure medications could be making her sleepy. OBJECTIVE: VITAL SIGNS: Temperature 97.6. Heart rate 60. Blood pressure 131/ 84. Respiratory rate 18. O2 saturation 93% on room air. LUNGS: Essentially clear to auscultation bilaterally. CARDIAC: Regular rate and slightly irregular rhythm. GASTROINTESTINAL: Abdomen is soft, nondistended, nontender. Bowel sounds are positive. EXTREMITIES: No cyanosis, clubbing or edema. NEUROLOGIC: She awakens easily, she is alert and oriented times three, but she does doze off frequently. LABORATORY: There are no labs and films to report at this time. ASSESSMENT: 1. Hypertensive crisis initially requiring adding chlorthalidone to her her daily medication treatments with the addition of chlorthalidone and amlodipine. 2. Possible urinary tract infection with pyuria and bacteruria. Her urine specimen appears to be a contaminated specimen. 3. Hypokalemia, improved to 3.5. 4. History of congestive heart failure with diastolic dysfunction and no recent echocardiogram for review. 5. Chronic obstructive pulmonary disease in a chronic smoker with no evidence of acute exacerbation. 6. History of bradycardia requiring pacemaker implantation. 7. History of coronary artery disease. 8. History of abdominal aortic aneurysm measuring 4.8 cm in April of 2017 and repeat exam on this admission revealing 6 cm. This is being followed by her primary care physician, Dr. Eliceo Porras, as well as Dr. Chester, retail chain store area supervisor. 9. Diverticulosis. 10. History of chronic back pain with degenerative disc disease. 11. History of chronic tobacco abuse with nicotine addiction, encouraged to stop completely. PLAN: We will continue present supportive care. I will recheck her labs in the morning. I will continue to monitor her blood pressure closely. I will also check her potassium in the morning. Her IV fluids have been discontinued, but we may need to start them at a very low rate if she does not eat or drink well within the next 24 hours. We will also monitor her neuro status as she is quite lethargic. I believe it is most likely due to her new blood pressure medicine, but we will continue to monitor that. I have talked to the family about very close control of her blood pressure as her abdominal aortic aneurysm has enlarged and her blood pressure must be monitored closely. She has [facility] and I will have them visit her daily after discharge until she follows up with Dr. Porras just to monitor the blood pressure very closely. Otherwise, we will continue to monitor the patient closely and follow as needed. Dr. Porras is the collaborating physician and available for consultation. #[id number] [facility]
[2017-09-11] MEDS: POTASSIUM CHLORIDE 20 MEQ TAB PO SCH (16:16)
[2017-09-11] MEDS: TEMAZEPAM 15 MG CAP PO SCH (20:26)
[2017-09-11] MEDS: GABAPENTIN 300 MG CAP PO SCH (20:26)
[2017-09-11] MEDS: amLODIPine BESYLATE 5 MG TAB PO SCH (20:26)
[2017-09-11] MEDS: ASPIRIN EC 81 MG TAB PO SCH (20:26)
[2017-09-11] MEDS: NICOTINE PATCH 14 MG TD SCH (20:27)
[2017-09-11] MEDS: ENOXAPARIN SODIUM 40 MG/0.4 ML SYG SUBCU SCH (20:27)
[2017-09-11] MEDS: CALCIUM CARBONATE-VITAMIN D 500 MG TAB PO SCH (20:27)
[2017-09-11] MEDS: TOLTERODINE TARTRATE ER 4 MG CAP PO SCH (20:27)
[2017-09-11] MEDS: SODIUM CHLORIDE 0.9% (FLUSH) 10 ML SYG IV SCH (20:27)
[2017-09-11] MEDS: SIMVASTATIN 10 MG TAB PO SCH (20:28)
[2017-09-11] MEDS: IV SET AND CAP CHANGE INJ INJ SCH (21:49)
[2017-09-12] MEDS: OMEPRAZOLE CAP 20 MG CAP PO SCH (06:06)
[2017-09-12] MEDS ORDERED: SODIUM CHL 0.9% 50ML MIN-BAG+ 50 ML IVPB ONE (08:18)
[2017-09-12] MEDS ORDERED: cefTRIAXone SODIUM 1 GM VIAL ONE (08:19)
[2017-09-12] MEDS: POTASSIUM CHLORIDE 20 MEQ TAB PO SCH ×2 (08:32→17:28)
[2017-09-12] MEDS: METOPROLOL TARTRATE 50 MG TAB PO SCH ×2 (08:32→17:28)
[2017-09-12] MEDS: cloNIDine HCL 0.1 MG TAB PO SCH ×2 (08:34→20:47)
[2017-09-12] MEDS: CHLORTHALIDONE 25 MG TAB PO SCH (08:34)
[2017-09-12] MEDS: LISINOPRIL 10 MG TAB PO SCH (08:34)
[2017-09-12] MEDS: SPIRONOLACTONE 25 MG TAB PO SCH (08:34)
[2017-09-12] MEDS: OSELTAMIVIR 75 MG CAP PO SCH (08:34)
[2017-09-12] MEDS: SODIUM CHLORIDE 0.9% (FLUSH) 10 ML SYG IV SCH ×2 (08:58→20:48)
[2017-09-12] MEDS: cefTRIAXone SODIUM 1 GM in SODIUM CHL 0.9% 50ML MIN-BAG+ 50 ML IVPB SCH (08:58)
--- NOTE | 2017-09-12 15:46 | CT ---
EXAM DESCRIPTION: Head CLINICAL HISTORY: 89 years, Female, ams COMPARISON: September 01, 2013 TECHNIQUE: Head CT was performed without IV contrast. This exam was performed according to our departmental dose-optimization program, which includes automated exposure control, adjustment of the mA and/or kV according to patient size and/or use of iterative reconstruction technique. FINDINGS: There is no acute intracranial hemorrhage. There is generalized age-appropriate volume loss with ex vacuo prominence of the ventricular system. No midline shift or other mass effect. Chronic ischemic changes are noted in the periventricular white matter without cortical edema or sulcal effacement to suggest acute cortical infarct. The basal ganglia are unremarkable. There is no posterior fossa lesion. Vascular calcifications are noted. Mucoperiosteal thickening and/or fluid is present in the left sphenoid sinus. Is a tiny amount of fluid and/or mucoperiosteal thickening in the left maxillary sinus. No calvarial fracture. IMPRESSION: Age-appropriate volume loss, vascular calcifications and chronic ischemic changes, but no acute intracranial abnormality. Left sphenoid and left maxillary sinusitis, questionable acuity. Electronically signed by: Sy Longoria MD 09/12/2017 3:45 PM [facility]
[2017-09-12] MEDS: cloNIDine HCL 0.1 MG TAB PO PRN (15:49)
--- NOTE | 2017-09-12 19:48 | PN ---
DATE: 09/12/17 SUPERVISING PHYSICIAN: Yonny Porras M.D. SUBJECTIVE: This morning, the patient continues to be very, very lethargic. She was only arousable and would open her eyes but would not follow any commands. She had some lethargy yesterday but there were concerns that given her history of dementia and the high blood pressure that she initially came in with, that there could be an impending stroke or some other neurological change. A CT of the head was done. About 1 to 1-1/2 hours after the completion of the CT scan, the patient began to arouse and was conversing with family and able to answer questions appropriately. At the time her CT was ordered, her Restoril was discontinued and she had been taking it every night. On exam, the patient had no complaints of shortness of breath, nausea, vomiting or diarrhea. She is more alert according to family members than she has been in several days. OBJECTIVE: VITAL SIGNS: She is afebrile, heart rate 69, blood pressure 153/102 , respiratory rate was as high as 24, it is now 20. O2 sat is 93%. RESPIRATORY : Essentially clear to auscultation bilaterally. CARDIAC: Regular rate and rhythm. ABDOMEN: Soft, nondistended, non-tender. Bowel sounds are positive. NEUROLOGIC: She is awake, alert and oriented times three and much improved since earlier this morning. LABORATORY: WBCs are 7.2, hemoglobin 13.9, hematocrit 43.1, platelets 224. BMP , including magnesium, are within normal limits. RADIOLOGY: Head CT per radiology interpretation shows age appropriate volume loss, vascular calcifications and chronic ischemic changes but no acute intracranial abnormality. Left sphenoid and left maxillary sinusitis, questionable acuity. All other labs and films have been reviewed via the EMR. ASSESSMENT: 1. Hypertensive crisis initially requiring a change in her medication regime by adding Chlorthalidone and Amlodipine as well as p.r.n. Clonidine and Spironolactone. 2. Left sided sinusitis per CT exam today. 3. Urinary tract infection with pyuria and bacteruria. Her urine specimen did appear to be contaminated, presently on Rocephin. 4. Hypokalemia that has resolved. 5. Altered mental status that may be due to changes in her antihypertensive medications as well as residual effects of Restoril with a negative head CT that is now improving. 6. Chronic obstructive pulmonary disease in a chronic smoker with no evidence of acute exacerbation. 7. History of bradycardia requiring pacemaker implantation. 8. Coronary artery disease. 9. History of abdominal aortic aneurysm measuring 4.8 cm in April of 2017 and is now 6 cm followed by her primary care physician, Dr. Eliceo Porras as well as Dr. Chester, her medical technicians. 10. Diverticulosis. 11. History of chronic back pain with degenerative disc disease. 12. History of chronic tobacco abuse. PLAN: We will continue present supportive care. Initially we had suspected that her change in her antihypertensives caused the lethargy, but she has received Restoril for several nights since being admitted to the hospital, and I have discontinued the Restoril. The patient is much more alert today. She has been unable to participate in her physical therapy evaluation and hopefully tomorrow she can do so. She has been very weak and in lieu of discharge home, her daughter is afraid she cannot take care of her, it may be considered to readmit her for Swing Bed for strengthening and conditioning. Will see how that goes with Physical Therapy tomorrow. I will also monitor her blood pressure closely. Will not repeat her lab tomorrow as it is mostly within normal limits. I have discontinued her Rocephin and changed her to Cefdinir antibiotics that would cover for both her urinary tract infection as well as her sinusitis, and she will be able to be discharged home on 7 to 14 days of that antibiotic. We will continue to monitor her closely and follow as needed. Dr. Porras is the collaborating physician available for consultation. #[id number] and [id number] [facility]
[2017-09-12] MEDS: ENOXAPARIN SODIUM 40 MG/0.4 ML SYG SUBCU SCH (20:45)
[2017-09-12] MEDS: GABAPENTIN 300 MG CAP PO SCH (20:45)
[2017-09-12] MEDS: SIMVASTATIN 10 MG TAB PO SCH (20:46)
[2017-09-12] MEDS: TOLTERODINE TARTRATE ER 4 MG CAP PO SCH (20:46)
[2017-09-12] MEDS: amLODIPine BESYLATE 5 MG TAB PO SCH (20:47)
[2017-09-12] MEDS: ASPIRIN EC 81 MG TAB PO SCH ×2 (20:47→23:55)
[2017-09-12] MEDS: CEFDINIR 300 MG CAP PO SCH (20:47)
[2017-09-12] MEDS: CALCIUM CARBONATE-VITAMIN D 500 MG TAB PO SCH (20:47)
[2017-09-12] MEDS: NICOTINE PATCH 14 MG TD SCH (20:48)
[2017-09-13] MEDS: OMEPRAZOLE CAP 20 MG CAP PO SCH (06:06)
[2017-09-13] MEDS: LISINOPRIL 10 MG TAB PO SCH (09:30)
[2017-09-13] MEDS: OSELTAMIVIR 75 MG CAP PO SCH (09:30)
[2017-09-13] MEDS: POTASSIUM CHLORIDE 20 MEQ TAB PO SCH ×2 (09:30→18:01)
[2017-09-13] MEDS: CHLORTHALIDONE 25 MG TAB PO SCH (09:30)
[2017-09-13] MEDS: SPIRONOLACTONE 25 MG TAB PO SCH (09:30)
[2017-09-13] MEDS: METOPROLOL TARTRATE 50 MG TAB PO SCH ×2 (09:30→18:01)
[2017-09-13] MEDS: CEFDINIR 300 MG CAP PO SCH ×2 (09:30→21:38)
[2017-09-13] MEDS: cloNIDine HCL 0.1 MG TAB PO SCH (09:30)
[2017-09-13] MEDS: SODIUM CHLORIDE 0.9% (FLUSH) 10 ML SYG IV SCH ×2 (10:17→21:41)
--- NOTE | 2017-09-13 16:50 | PN ---
DATE: 09/13/17 SUPERVISING PHYSICIAN: Yonny Porras M.D. SUBJECTIVE: The patient this morning, she is awake but continues to appear somewhat lethargic compared to when I saw her on admission. Her daughter still notes that she is still not at her baseline mental status or her normal self. Her daughter thinks that it is similar to when she has a urinary tract infection , however repeat urinalysis showed that she was without a significant infection. She has been afebrile. She is on multiple new medications for the uncontrolled hypertension, one including Clonidine 0.1 mg which is scheduled b.i.d. which possibly could be contributing to some of her decreased mental capacity or drowsiness as she has been off of Ambien and Restoril now for 24 hours. OBJECTIVE: VITAL SIGNS: Temperature 97.8, pulse 9, blood pressure 127/83, respirations 16, satting 93% on nasal cannula at rest. I's and O's: She has not had a bowel movement today and has had multiple voids that have not been measured. Weight is currently 71.3 kg. CHEST: Lungs were clear to auscultation , just slightly diminished towards the bases. HEART: Regular rate and rhythm. ABDOMEN: Soft, non-tender. Positive bowel sounds. EXTREMITIES: No clubbing, cyanosis or edema. NEUROLOGIC: She is oriented times three. She is awake and alert, but appears to be somewhat flat in regards to her affect which is, as her daughter noted, not her normal self. There is no discernible neurological deficits either focalizing or lateralizing. Her facial features remain symmetrical. LABORATORY: Repeat CBC today shows essentially to be unchanged with white count 7,600, hemoglobin and hematocrit are stable at 14.6 and 44.8, platelet count 235,000. Differential is without a left shift. Chemistries show just a mildly low sodium at 133, otherwise electrolytes are within normal limits. BUN and creatinine are stable at 16 and creatinine of 1.0. Glucose was 110. Liver functions showed to be within normal limits. Ammonia level was 8. Repeat urinalysis with a straight catheter, given that the last specimen was considered to be a multi-organism contamination, today shows just a trace of intact blood, otherwise within normal limits. MICROBIOLOGY: No additional specimens are submitted. Again, last culture showed contamination with multiple organisms. RADIOLOGY: No additional radiographic studies were completed today. ASSESSMENT: 1. Hypertensive crisis requiring ongoing medical management with the patient having been started on new medications, including Chlorthalidone and Amlodipine as well as Clonidine and Spironolactone with the patient showing a controlled and stable blood pressure currently. 2. Left sided sinusitis as noted on CT exam currently on Cefdinir. 3. Previous urinary tract infection with pyuria and bacteruria with the patient having been treated with Rocephin with the culture showing multiple organisms contamination with repeat showing no evidence of underlying urinary tract infection. 4. Hypokalemia, resolved with treatment. 5. Altered mental status questionably due to changes in her antihypertensive medication residual effects felt to be probably from Restoril and with her showing a negative CT and with some improvement although continues to have some decreased functions, questionable related to side effects from Clonidine. 6. Chronic obstructive pulmonary disease in a chronic smoker with no evidence of acute exacerbation. 7. History of bradycardia requiring pacemaker implantation. 8. Coronary artery disease. 9. History of abdominal aortic aneurysm measuring 4.8 cm in April of 2017 now showing 6 cm followed by her primary care physician, Dr. Porras as well as Dr. Chester, cardiology. 10. Diverticulosis without any signs of diverticulitis. 11. History of chronic back pain with degenerative disc disease. 12. History of chronic tobacco abuse. PLAN: Will continue to follow the patient closely today and alter again her medication regimen with taking the Clonidine to p.r.n. instead of scheduled to see if this will help with increasing her mental status. She has been off Restoril. This will be continued to be stopped. She did have a physical therapy evaluation and is showing significant weakness and deconditioning from extensive hospitalization and chronic illness. Still consideration for Swing Bed. Will monitor blood pressure today as we again alter the Clonidine. She remains on Cefdinir for the underlying sinusitis and will need treatment at least for 7 to 14 days. Until discharge or admission to Swing Bed, will continue to monitor closely and treat appropriately. #[id number] [facility]
[2017-09-13] MEDS: ACETAMINOPHEN 325 MG TAB PO PRN (21:38)
[2017-09-13] MEDS: TOLTERODINE TARTRATE ER 4 MG CAP PO SCH (21:38)
[2017-09-13] MEDS: GABAPENTIN 300 MG CAP PO SCH (21:38)
[2017-09-13] MEDS: SIMVASTATIN 10 MG TAB PO SCH (21:38)
[2017-09-13] MEDS: NICOTINE PATCH 14 MG TD SCH (21:38)
[2017-09-13] MEDS: CALCIUM CARBONATE-VITAMIN D 500 MG TAB PO SCH (21:38)
[2017-09-13] MEDS: ENOXAPARIN SODIUM 40 MG/0.4 ML SYG SUBCU SCH (21:41)
[2017-09-13] MEDS: amLODIPine BESYLATE 5 MG TAB PO SCH (21:46)
[2017-09-14] MEDS: OMEPRAZOLE CAP 20 MG CAP PO SCH (06:30)
[2017-09-14] MEDS: POTASSIUM CHLORIDE 20 MEQ TAB PO SCH ×2 (08:28→17:40)
[2017-09-14] MEDS: CHLORTHALIDONE 25 MG TAB PO SCH (08:28)
[2017-09-14] MEDS: LISINOPRIL 10 MG TAB PO SCH (08:28)
[2017-09-14] MEDS: METOPROLOL TARTRATE 50 MG TAB PO SCH ×2 (08:28→17:40)
[2017-09-14] MEDS: SPIRONOLACTONE 25 MG TAB PO SCH (08:29)
[2017-09-14] MEDS: CEFDINIR 300 MG CAP PO SCH ×2 (08:29→21:19)
[2017-09-14] MEDS: SODIUM CHLORIDE 0.9% (FLUSH) 10 ML SYG IV SCH ×2 (08:30→21:20)
[2017-09-14] MEDS: OSELTAMIVIR 75 MG CAP PO SCH (08:30)
[2017-09-14] MEDS ORDERED: NYSTATIN POWDER 15GM BTTL TOP ONE (15:33)
[2017-09-14] MEDS: NYSTATIN POWDER 15GM BTTL TOP SCH ×2 (16:00→21:30)
[2017-09-14] MEDS: amLODIPine BESYLATE 5 MG TAB PO SCH (21:18)
[2017-09-14] MEDS: NICOTINE PATCH 14 MG TD SCH (21:18)
[2017-09-14] MEDS: TOLTERODINE TARTRATE ER 4 MG CAP PO SCH (21:18)
[2017-09-14] MEDS: CALCIUM CARBONATE-VITAMIN D 500 MG TAB PO SCH (21:18)
[2017-09-14] MEDS: SIMVASTATIN 10 MG TAB PO SCH (21:19)
[2017-09-14] MEDS: ASPIRIN EC 81 MG TAB PO SCH (21:19)
[2017-09-14] MEDS: ENOXAPARIN SODIUM 40 MG/0.4 ML SYG SUBCU SCH (21:19)
[2017-09-14] MEDS: IV SET AND CAP CHANGE INJ INJ SCH (21:30)
[2017-09-14] MEDS: GABAPENTIN 300 MG CAP PO SCH (22:18)
[2017-09-15] MEDS: OMEPRAZOLE CAP 20 MG CAP PO SCH (06:20)
[2017-09-15] MEDS: CEFDINIR 300 MG CAP PO SCH ×2 (08:20→21:20)
[2017-09-15] MEDS: OSELTAMIVIR 75 MG CAP PO SCH (08:20)
[2017-09-15] MEDS: CHLORTHALIDONE 25 MG TAB PO SCH (08:20)
[2017-09-15] MEDS: SODIUM CHLORIDE 0.9% (FLUSH) 10 ML SYG IV SCH ×2 (08:21→21:19)
[2017-09-15] MEDS: POTASSIUM CHLORIDE 20 MEQ TAB PO SCH ×2 (08:21→17:48)
[2017-09-15] MEDS: SPIRONOLACTONE 25 MG TAB PO SCH (08:21)
[2017-09-15] MEDS: LISINOPRIL 10 MG TAB PO SCH (08:21)
[2017-09-15] MEDS: METOPROLOL TARTRATE 50 MG TAB PO SCH ×2 (08:21→17:47)
--- NOTE | 2017-09-15 08:33 | PN ---
DATE: 09/15/17 SUPERVISING PHYSICIAN: Yonny Porras MD SUBJECTIVE: The patient has been much more alert now that she is just on p.o. Clonidine. Her family feels like she is closer to her baseline mental status, although she remains physically weak. Continued discussion awaiting possible Swing Bed admission tomorrow. The patient has no further complaints of chest pain, shortness of breath or any changes in mental status. She does remain afebrile. OBJECTIVE: VITAL SIGNS: Temperature 96.8, pulse 70, blood pressure 106/70, respirations 16 , saturation 95% on room air. I&O well balanced. Weight 71.3 kg. CHEST: Lungs clear to auscultation. HEART: Regular rate and rhythm. ABDOMEN: Soft, non-tender, positive bowel sounds. EXTREMITIES: No cyanosis, clubbing, or edema. NEUROLOGIC: Alert and oriented x 3. LABORATORY: No repeat laboratory studies today. No radiographic studies were completed today. ASSESSMENT: 1. Hypertensive crisis requiring ongoing medical management with the patient having been started on new medications, including Chlorthalidone and Amlodipine as well as p.r.n. Clonidine and Spironolactone with the patient showing a good control of her blood pressure and remaining stable. 2. Left sided sinusitis as noted on CT exam currently on Cefdinir. 3. Previous urinary tract infection although culture results show to be negative. Patient has been transitioned to Cefdinir after being on Rocephin previously with cultures showing no growth other than contamination. 4. Hypokalemia, resolved. 5. Altered mental status questionably due to changes in her antihypertensive medication residual effects from previous Restoril but with a negative CT and showing good improvement and returning to baseline status having changing Clonidine to p.r.n. 6. Chronic obstructive pulmonary disease in a chronic smoker with no evidence of acute exacerbation. 7. History of bradycardia requiring pacemaker implantation. 8. Coronary artery disease. 9. History of abdominal aortic aneurysm previously measuring 4.8 cm in April of 2017, currently showing 6 cm on ultrasound and followed by her primary care physician, Dr. Porras, as well as Dr. Chester, cardiology. 10. Diverticulosis without any signs of diverticulitis. 11. History of chronic back pain with degenerative disc disease. 12. History of chronic tobacco abuse. Encouraged to stop smoking. PLAN: Will anticipate hopefully being able to discharge to either a rehabilitation facility or Swing abed for ongoing rehabilitation and strengthening as the patient is significantly deconditioned from extensive hospitalization and ongoing chronic illness. She has done well with Clonidine p.r.n. and current medication regimen with good blood pressure control. Will continue to hold the Restoril. Will await a Swing Bed evaluation in the morning and again hopefully to be able to discharge to Swing Bed. Until the, we will continue to monitor and treat appropriately. [facility][id number] [facility]
[2017-09-15] MEDS: NYSTATIN POWDER 15GM BTTL TOP SCH ×3 (13:38→21:23)
--- NOTE | 2017-09-15 15:21 | PN ---
SUPERVISING PHYSICIAN: Geovanni Kennedy MD DATE: 09/15/17 SUBJECTIVE: The patient is pretty confused and this is from her long-term dementia. She is sitting up in a chair at this time. I have discussed the patient with the physical therapist and the patient is not going to meet criteria for Swing Bed due to the fact that she is a total lift. Her family is at the bedside as well. I discussed with this them. We are going to evaluate [facility] versus [facility]. Both of those facilities were notified. OBJECTIVE: VITAL SIGNS: Blood pressure 138/87. Heart rate 66. Respiratory rate 18. Temperature 98.6. Oxygen saturation 94%. GENERAL: Ms. Vogt is an 89-year-old female, chronically ill in appearance and quite frail. HEENT: Normocephalic, atraumatic. Pupils are equal and reactive. No nasal drainage. Throat with moist mucosa. NECK: Supple. Midline trachea. No jugular venous distention. CHEST: Symmetrical with equal rise and fall of the chest with inspiration and expiration. Lungs sounds are diminished in the bases, otherwise clear to auscultation bilaterally. CARDIOVASCULAR: Regular rate and rhythm. Normal S1, S2. ABDOMEN: Soft, obese. Positive bowel sounds. EXTREMITIES: Lower extremities with some ankle edema. Pulses are palpable. Capillary refill is less than 3 seconds. NEUROLOGIC: The patient is confused and this is probably her baseline at this time. ASSESSMENT: 1. Hypertensive crisis. 2. Sinusitis. 3. Altered mental status. 4. Chronic obstructive pulmonary disease. 5. History of abdominal aortic aneurysm. PLAN: At this time, as stated above, we are going to evaluate for [facility], which I do not think she will meet criteria for because she probably will not be able to participate in their rehab program. The alternative is [facility] and the family is aware of this at this time. Blood pressure is stable on current medication. Her level of consciousness and confusion seems to be improved from what was described to me that she was yesterday. However, she still has her long-term dementia. Continue current therapy and hopefully discharge tomorrow to either halfway or [facility]. #[id number] [facility]
[2017-09-15] MEDS: ENOXAPARIN SODIUM 40 MG/0.4 ML SYG SUBCU SCH (21:18)
[2017-09-15] MEDS: NICOTINE PATCH 14 MG TD SCH (21:19)
[2017-09-15] MEDS: GABAPENTIN 300 MG CAP PO SCH (21:20)
[2017-09-15] MEDS: TOLTERODINE TARTRATE ER 4 MG CAP PO SCH (21:20)
[2017-09-15] MEDS: ASPIRIN EC 81 MG TAB PO SCH (21:20)
[2017-09-15] MEDS: ACETAMINOPHEN 325 MG TAB PO PRN (21:20)
[2017-09-15] MEDS: CALCIUM CARBONATE-VITAMIN D 500 MG TAB PO SCH (21:20)
[2017-09-15] MEDS: amLODIPine BESYLATE 5 MG TAB PO SCH (21:20)
[2017-09-15] MEDS: SIMVASTATIN 10 MG TAB PO SCH (21:20)
[2017-09-16] MEDS: OMEPRAZOLE CAP 20 MG CAP PO SCH (06:05)
[2017-09-16] MEDS: POTASSIUM CHLORIDE 20 MEQ TAB PO SCH ×2 (08:20→17:13)
[2017-09-16] MEDS: CHLORTHALIDONE 25 MG TAB PO SCH (08:21)
[2017-09-16] MEDS: SPIRONOLACTONE 25 MG TAB PO SCH (08:21)
[2017-09-16] MEDS: METOPROLOL TARTRATE 50 MG TAB PO SCH ×2 (08:21→17:13)
[2017-09-16] MEDS: LISINOPRIL 10 MG TAB PO SCH (08:21)
[2017-09-16] MEDS: SODIUM CHLORIDE 0.9% (FLUSH) 10 ML SYG IV SCH ×2 (08:22→20:51)
[2017-09-16] MEDS: OSELTAMIVIR 75 MG CAP PO SCH (08:27)
[2017-09-16] MEDS: CEFDINIR 300 MG CAP PO SCH ×2 (08:28→20:50)
[2017-09-16] MEDS: NYSTATIN POWDER 15GM BTTL TOP SCH ×3 (08:28→20:50)
--- NOTE | 2017-09-16 15:32 | PN ---
SUPERVISING PHYSICIAN: Geovanni Kennedy MD DATE: 09/16/17 SUBJECTIVE: Today, the patient seems a little bit more lucid. She is not as confused as she was yesterday. She is sitting up in a chair a lot more straight than she was yesterday as well. She denies any complaints currently. Outstanding issue at this time is where she is going to be going regarding to the long-term versus Swing Bed. The family is reportedly not wanting to go to [facility]. OBJECTIVE: VITAL SIGNS: Blood pressure 139/83. Heart rate 70. Respiratory rate 16. Temperature 97.8. Oxygen saturation 94%. GENERAL: Ms. Vogt is an 89-year-old in no active distress. NEUROLOGIC: The patient is still a bit confused, but to the degree she was yesterday. LUNGS: Clear to auscultation, but a little bit diminished in the bases. CARDIOVASCULAR: Regular rate and rhythm. Normal S1, S2. ABDOMEN: Soft. Positive bowel sounds. EXTREMITIES: Lower extremities with ankle edema. Pulses 2+. ASSESSMENT: 1. Hypertensive crisis. 2. Sinusitis. 3. Altered mental status. 4. Chronic obstructive pulmonary disease. 5. History of abdominal aortic aneurysm. PLAN: As before, her hypertension is actually improved from her current medication regimen. We are evaluating placement at this time and awaiting evaluation by I believe [facility] and potentially [facility] depending on whether or not the family decides they want to do this or not. According to physical therapy here, she really does not meet criteria for Swing Bed here due to the fact that she cannot participate in the physical therapy offered at this time. #[id number] [facility]
[2017-09-16] MEDS: ASPIRIN EC 81 MG TAB PO SCH (20:47)
[2017-09-16] MEDS: TOLTERODINE TARTRATE ER 4 MG CAP PO SCH (20:48)
[2017-09-16] MEDS: ENOXAPARIN SODIUM 40 MG/0.4 ML SYG SUBCU SCH (20:48)
[2017-09-16] MEDS: NICOTINE PATCH 14 MG TD SCH (20:48)
[2017-09-16] MEDS: GABAPENTIN 300 MG CAP PO SCH (20:49)
[2017-09-16] MEDS: amLODIPine BESYLATE 5 MG TAB PO SCH (20:50)
[2017-09-16] MEDS: CALCIUM CARBONATE-VITAMIN D 500 MG TAB PO SCH (20:50)
[2017-09-16] MEDS: SIMVASTATIN 10 MG TAB PO SCH (20:52)
[2017-09-17] MEDS: OMEPRAZOLE CAP 20 MG CAP PO SCH (06:07)
[2017-09-17] MEDS: POTASSIUM CHLORIDE 20 MEQ TAB PO SCH (08:53)
[2017-09-17] MEDS: METOPROLOL TARTRATE 50 MG TAB PO SCH (08:53)
[2017-09-17] MEDS: CEFDINIR 300 MG CAP PO SCH (08:56)
[2017-09-17] MEDS: CHLORTHALIDONE 25 MG TAB PO SCH (08:56)
[2017-09-17] MEDS: LISINOPRIL 10 MG TAB PO SCH (08:56)
[2017-09-17] MEDS: SPIRONOLACTONE 25 MG TAB PO SCH (08:56)
[2017-09-17] MEDS: SODIUM CHLORIDE 0.9% (FLUSH) 10 ML SYG IV SCH (08:58)
[2017-09-17] MEDS: OSELTAMIVIR 75 MG CAP PO SCH (09:19)
[2017-09-17] MEDS: NYSTATIN POWDER 15GM BTTL TOP SCH (09:19)
[2017-09-17 10:49] VITALS: BP 100/78; TEMP 97.1; O2SAT 98
--- NOTE | 2017-09-18 08:05 | DS ---
SUPERVISING PHYSICIAN: Geovanni Kennedy MD ADMISSION DIAGNOSIS: 1. Hypertensive urgency. 2. Urinary tract infection. 3. Electrolyte imbalance. 4. History of congestive heart failure. 5. Chronic obstructive pulmonary disease. 6. History of bradycardia with pacemaker placement. 7. History of coronary artery disease. 8. History of diverticulosis. 9. History of chronic back pain. 10. Chronic tobacco abuse. DISCHARGE DIAGNOSIS: 1. Hypertensive urgency, resolved. 2. Urinary tract infection, improved. 3. Electrolyte imbalance, resolved. 4. History of congestive heart failure. 5. Chronic obstructive pulmonary disease. 6. History of bradycardia requiring pacemaker placement. 7. Significant history of coronary artery disease. 8. History of diverticulosis. 9. History of chronic back pain. 10. Chronic tobacco abuse. HOSPITAL COURSE: This is an 89-year-old female who was admitted on 09/08/17 after she was found by her home health nurse to have a significantly elevated blood pressure. She was sent to [facility] and subsequently sent to the Emergency Room. She was given clonidine which provided a little bit of drop in her blood pressure, but over the course of her hospitalization basically had adjustments to her medications. Her blood pressure improved significantly. During the admission, she was also noted to have some altered mental status. It was felt that some of her medications had caused this and, therefore, these were discontinued. Additionally, she had some significant weakness. Physical therapy was working with her. However, she was a total lift. At 89 years of age, she was evaluated for Swing Bed here, however, due to her lack of ability to participate in physical therapy, this was declined. She actually has been accepted to a senior care facility and will be discharged today to that. DISCHARGE CONDITION: Fair. ACTIVITY: As per her senior care facility. MEDICATIONS: Please see discharge medication record list. FOLLOWUP: She will followup with Dr. Porras in one to two weeks. DIET: Cardiac. [facility][id number] [facility]
== END 2017-09-17 14:30 | disposition home or self-care (01) | DRG 305 ==
LOC: ER 16:26 → UNDOADMOB 21:02 → MS 21:02 → OBSVTOIN 21:02 → INTOOBSV 21:02 → UNDOADMOB 21:03 → MS 21:03 → OBSVTOIN 09-09 12:52 → INTOOBSV 09-09 12:52 → UNDOADMOB 09-09 12:52
PROVIDERS: ADMIT Nurse Practitioner Family; ATTEND Nurse Practitioner
DX: I16.0 Hypertensive urgency (principal); N39.0 Urinary tract infection, site not specified; I50.32 Chronic diastolic (congestive) heart failure; E87.1 Hypo-osmolality and hyponatremia; E87.6 Hypokalemia; J44.9 Chronic obstructive pulmonary disease, unspecified; I25.10 Atherosclerotic heart disease of native coronary artery without angina pectoris; I71.4 Abdominal aortic aneurysm, without rupture; G89.29 Other chronic pain; E86.0 Dehydration; J32.9 Chronic sinusitis, unspecified; F03.90 Unspecified dementia, unspecified severity, without behavioral disturbance, psychotic disturbance, mood disturbance, and anxiety; M54.9 Dorsalgia, unspecified; T42.4X5A Adverse effect of benzodiazepines, initial encounter; Y92.009 Unspecified place in unspecified non-institutional (private) residence as the place of occurrence of the external cause; K57.30 Diverticulosis of large intestine without perforation or abscess without bleeding; F17.210 Nicotine dependence, cigarettes, uncomplicated; Z95.0 Presence of cardiac pacemaker; I11.0 Hypertensive heart disease with heart failure

== ENCOUNTER 2017-10-12 17:08 | Emergency (ER) | payer MEDICARE ==
[2017-10-12 17:48] VITALS: TEMP 96.9
--- NOTE | 2017-10-12 17:59 | ED.PDOC ---
History of Present Illness - General Chief Complaint: Cardiovascular Problem Stated Complaint: high blood pressure Time Seen by Provider: 10/12/17 17:23 Source: patient, family Exam Limitations: no limitations - History of Present Illness Initial Comments: Patient presents after having several blood pressures in the 180s yesterday and today. She was taken off her metoprolol and lisinopril three weeks ago because she was running low pressures. She took one lisinopril 5 mg today and one metoprolol 50 mg today. Her presenting systolic is 152 but has been as high as 181 in the E.D. She has been taking prednisone and hydroxyzine for a pruritic rash on her back. No dyspnea, chest pain, nor light-headedness. Denies headache. No other complaints. Timing/Duration: 24 hours, other Severity: moderate Improving Factors: nothing Worsening Factors: nothing Associated Symptoms: denies symptoms Allergies/Adverse Reactions: Allergies Levofloxacin [From Levaquin] Adverse Reaction (Verified 09/08/17 22:22) metals Allergy (Intermediate, Uncoded 09/08/17 22:22) Home Medications: Ambulatory Orders Aspirin [Aspirin EC] 81 mg PO BEDTIME 05/24/14 Calcium 600 mg PO BEDTIME 05/24/14 [place]-3 Fatty Acids [Fish Oil] 1 cap PO BEDTIME 05/24/14 Omeprazole 20 mg PO DAILY@0700 05/24/14 Oxybutynin Chloride [Oxybutynin Chloride ER] 10 mg PO BEDTIME 05/24/14 Gabapentin 600 mg PO BEDTIME 03/13/16 Zolpidem Tartrate [Ambien] 10 mg PO BEDTIME 04/22/17 Metoprolol Tartrate 50 mg PO BID 05/03/17 Chlorthalidone [Hygroton] 12.5 mg PO DAILY #30 tab 09/17/17 Lisinopril [Prinivil] 10 mg PO DAILY #30 tab 09/17/17 Nicotine Patch 14 mg [Habitrol Patch 14mg] 1 ea TD BEDTIME 30 Days patch Potassium Chloride Tab [K-Dur] 20 meq PO DAILY #30 tab 09/17/17 Simvastatin [Zocor] 10 mg PO BEDTIME #30 tab 09/17/17 Spironolactone [Aldactone] 25 mg PO DAILY #30 tab 09/17/17 amLODIPine BESYLATE [Norvasc] 5 mg PO BEDTIME #30 tab 09/17/17 cloNIDine HCL [Catapres] 0.1 mg PO Q4H PRN #90 tab 09/17/17 Review of Systems - Review of Systems Constitutional: States: no symptoms reported EENTM: States: no symptoms reported Respiratory: States: no symptoms reported Cardiology: States: no symptoms reported Gastrointestinal/Abdominal: States: no symptoms reported Genitourinary: States: no symptoms reported Musculoskeletal: States: no symptoms reported Skin: States: no symptoms reported Neurological: States: no symptoms reported Endocrine: States: no symptoms reported Hematologic/Lymphatic: States: no symptoms reported Past Medical History (General) - Patient Medical History Hx Seizures: No Hx Stroke: No Hx Dementia: No Hx Asthma: No Hx of COPD: Yes Hx Cardiac Disorders: Yes Hx Congestive Heart Failure: Yes Hx Pacemaker: Yes Hx Hypertension: Yes Hx Thyroid Disease: No Hx Diabetes: No Hx Gastroesophageal Reflux: Yes Hx Renal Disease: No Hx Cancer: No Hx of HIV: No Hx Hepatitis C: No Hx MRSA: No Surgical History: pacemaker, Hysterectomy - Vaccination History Hx Tetanus, Diphtheria Vaccination: No Hx Influenza Vaccination: Yes Hx Pneumococcal Vaccination: Yes - Social History Hx Tobacco Use: Yes Hx Chewing Tobacco Use: No Hx Alcohol Use: No Hx Substance Use: No Hx Substance Use Treatment: No Hx Depression: No Hx Physical Abuse: No Hx Emotional Abuse: No Hx Suspected Abuse: No - Female History Patient : No Family Medical History - Family History Mother Family History: Unknown Living Status: Hx Family Hypertension: Yes - parents Hx Cardiac Disease: Yes Hx Family Diabetes: Yes - parents Hx Family Cancer: Yes - mom-cancer /breast Physical Exam - Physical Exam General Appearance: Alert Respiratory: chest non-tender, lungs clear, normal breath sounds Cardiovascular/Chest: normal peripheral pulses, regular rate, rhythm, no edema Gastrointestinal/Abdominal: normal bowel sounds, non tender, soft Back Exam: no CVA tenderness 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 Copy, Patient Portal Self Enrollment Diet: other - as per your primary doctor Activity: as per physical therapy, increase activity as tolerated Referrals: Yonny Porras MD [Primary Care Provider] - 1-2 Weeks Home Medications: Ambulatory Orders Aspirin [Aspirin EC] 81 mg PO BEDTIME 05/24/14 Calcium 600 mg PO BEDTIME 05/24/14 [place]-3 Fatty Acids [Fish Oil] 1 cap PO BEDTIME 05/24/14 Omeprazole 20 mg PO DAILY@0700 05/24/14 Oxybutynin Chloride [Oxybutynin Chloride ER] 10 mg PO BEDTIME 05/24/14 Gabapentin 600 mg PO BEDTIME 03/13/16 Zolpidem Tartrate [Ambien] 10 mg PO BEDTIME 04/22/17 Metoprolol Tartrate 50 mg PO BID 05/03/17 Chlorthalidone [Hygroton] 12.5 mg PO DAILY #30 tab 09/17/17 Lisinopril [Prinivil] 10 mg PO DAILY #30 tab 09/17/17 Nicotine Patch 14 mg [Habitrol Patch 14mg] 1 ea TD BEDTIME 30 Days patch Potassium Chloride Tab [K-Dur] 20 meq PO DAILY #30 tab 09/17/17 Simvastatin [Zocor] 10 mg PO BEDTIME #30 tab 09/17/17 Spironolactone [Aldactone] 25 mg PO DAILY #30 tab 09/17/17 amLODIPine BESYLATE [Norvasc] 5 mg PO BEDTIME #30 tab 09/17/17 cloNIDine HCL [Catapres] 0.1 mg PO Q4H PRN #90 tab 09/17/17 Additional Instructions: You may take one more metoprolol tablet this evening. Tomorrow, take one lisinopril tablet and one metoprolol tablet and call Dr. Porras for further instructions.
[2017-10-12 18:28] VITALS: BP 165/92; O2SAT 97
== END 2017-10-12 18:15 | disposition home or self-care (01) ==
LOC: ER 17:08
DX: I11.0 Hypertensive heart disease with heart failure (principal); I50.9 Heart failure, unspecified; Z95.0 Presence of cardiac pacemaker; Z87.891 Personal history of nicotine dependence; Z79.82 Long term (current) use of aspirin